=== PATIENT | male | born 1965 | race Caucasian/White ===

== ENCOUNTER → 2017-04-21 | Outpatient (REF) | payer OTHER ==
[~2017-04-21] MED LIST: CETI10TA PO; DULC5TAB PO; LIPI20TA PO; LISI40TAB PO; MELO7.5S PO; PREV30CA11 PO; SING10TA32 PO
== END ==
LOC: M LAB REF 16:33
PROVIDERS: ATTEND Surgery
DX: D23.62 Other benign neoplasm of skin of left upper limb, including shoulder (principal); L91.0 Hypertrophic scar

== ENCOUNTER 2018-02-28 11:59 | Emergency (ER) | payer OTHER ==
[2018-02-28 13:16] LABS: BASO % 0.2 % (0.0-1.0); EOS # 0.1 10^3/uL (0.0-0.50); EOS % 0.7 % (0.0-3.0); HEMATOCRIT 41.5 % (42.0-52.0); IMMATURE GRANULOCYTE % 0.4 % (0-3.0); LYMPH # 3.5 10^3/uL (1.5-4.5); MEAN CORPUSCULAR HGB CONC 33.7 g/dl (32.0-36.5); MONO # 0.7 10^3/uL (0.0-0.8); MONO % 7.2 % (0.0-5.0); NEUTROPHILS # 5.7 10^3/uL (1.8-7.7); NEUTROPHILS % 56.5 % (36.0-66.0); PLATELET COUNT, AUTOMATED 282 10^3/uL (150-450); RED BLOOD COUNT 4.51 10^6/uL (4.30-6.10); RED CELL DISTRIBUTION WIDTH 14.5 % (11.5-14.5); WHITE BLOOD COUNT 10.1 10^3/uL (4.0-10.0)
[2018-02-28 13:42] LABS: ALBUMIN 3.9 GM/DL (3.2-5.2); ALBUMIN/GLOBULIN RATIO 0.98 (1.00-1.93); ALKALINE PHOSPHATASE 96 U/L (45-117); ALT/SGPT 46 U/L (12-78); ANION GAP 2 MEQ/L (8-16); AST/SGOT 19 U/L (7-37); BILIRUBIN,DIRECT 0.2 MG/DL (0.0-0.2); BILIRUBIN,TOTAL 0.7 MG/DL (0.2-1.0); BLOOD UREA NITROGEN 14 MG/DL (7-18); CALCIUM LEVEL 8.5 MG/DL (8.5-10.1); CARBON DIOXIDE LEVEL 31 MEQ/L (21-32); CHLORIDE LEVEL 109 MEQ/L (98-107); CREATININE FOR GFR 0.71 MG/DL (0.70-1.30); GLOMERULAR FILTRATION RATE > 60.0 (>56); GLUCOSE, FASTING 99 MG/DL (70-100); LIPASE 178 U/L (73-393); SODIUM LEVEL 142 MEQ/L (136-145); TOTAL PROTEIN 7.9 GM/DL (6.4-8.2)
[2018-02-28] MEDS ORDERED: ISOVUE-370 76% 100ML VIAL (Q9967) As Ordered (13:48)
== END 2018-02-28 15:18 | disposition home or self-care (01) ==
LOC: M ED 11:59
DX: S39.011A Strain of muscle, fascia and tendon of abdomen, initial encounter (principal); X58.XXXA Exposure to other specified factors, initial encounter; Y92.89 Other specified places as the place of occurrence of the external cause; J30.9 Allergic rhinitis, unspecified; Z79.899 Other long term (current) drug therapy
CPT/HCPCS: Q9967

== ENCOUNTER 2018-03-09 09:21 | Outpatient (RCR) | payer OTHER | END 2018-03-22 | LOC: M PT 09:21 | DX: Z51.89 Encounter for other specified aftercare (principal); M51.06 Intervertebral disc disorders with myelopathy, lumbar region | CPT/HCPCS: 97110 ==

== ENCOUNTER 2018-03-24 11:45 | Outpatient (RCR) | payer OTHER | END 2018-04-22 | LOC: M PT 11:45 | DX: Z51.89 Encounter for other specified aftercare (principal); M54.5 Low back pain; M51.36 Other intervertebral disc degeneration, lumbar region | CPT/HCPCS: 97110 ==

== ENCOUNTER → 2018-07-05 | Outpatient (CLI) | payer OTHER | LOC: M EKG 16:10 | DX: I10 Essential (primary) hypertension (principal) | CPT/HCPCS: 93005 ==

== ENCOUNTER 2018-07-09 11:30 | Day surgery (SDC) | payer OTHER ==
[2018-07-09] MEDS: LR 1,000 ML IV (13:09)
[2018-07-09] MEDS ORDERED: METOCLOPRAMIDE INJ 10MG/2ML VIAL (J2765) As Ordered (13:36)
[2018-07-09] MEDS ORDERED: PROPOFOL 200 MG/20 ML VIAL As Ordered (13:36)
[2018-07-09] MEDS ORDERED: ROCURONIUM BROMIDE 50 MG/5 ML VIAL As Ordered (13:36)
[2018-07-09] MEDS ORDERED: dexameTHASONE 4 MG/ML 1ML VIAL (J1100) As Ordered (13:36)
[2018-07-09] MEDS ORDERED: KETOROLAC 60 MG/2 ML VIAL (J1885) As Ordered (13:36)
[2018-07-09] MEDS ORDERED: NEOSTIGMINE 10 MG/10 ML VIAL (J2710) As Ordered (13:36)
[2018-07-09] MEDS ORDERED: MIDAZOLAM INJ 2 MG/2 ML VIAL (J2250) As Ordered (13:36)
[2018-07-09] MEDS ORDERED: GLYCOPYRROLATE INJ 0.2 MG/ML 2 ML VIAL As Ordered (13:36)
[2018-07-09] MEDS ORDERED: LIDOCAINE 2% INJ 100 MG/5 ML SDV (FOR ANES.) As Ordered (13:36)
[2018-07-09] MEDS ORDERED: ONDANSETRON 4MG/2ML VIAL (J2405) As Ordered (13:36)
[2018-07-09] MEDS ORDERED: fentaNYL 250 MCG/5 ML INJECTION (J3010) As Ordered (13:36)
[2018-07-09] MEDS ORDERED: LABETALOL HCL 100 MG/20 ML VIAL As Ordered (14:46)
[2018-07-09] MEDS: BUPIVACAINE/EPIN 0.25% 30 ML VIAL As Ordered (14:50)
[2018-07-09] MEDS ORDERED: SUGAMMADEX SODIUM 500 MG/5 ML VIAL (BRIDION) As Ordered (14:53)
[2018-07-09] MEDS ORDERED: PERCOCET 5MG/325MG TAB As Ordered (15:11)
[2018-07-09] MEDS ORDERED: fentaNYL 100 MCG/2 ML INJECTION (J3010) As Ordered (15:11)
[2018-07-09] MEDS ORDERED: NORCO, ANEXSIA 5/325MG TABLET (HYDROcodone/ACETAMINOPHEN) PO (15:15)
[2018-07-09] MEDS ORDERED: LR 1,000 ML IV (15:15)
[2018-07-09] MEDS ORDERED: ONDANSETRON 4MG/2ML VIAL (J2405) IV (15:15)
[2018-07-09] MEDS: fentaNYL 100 MCG/2 ML INJECTION (J3010) IV ×4 (15:15→15:31)
[2018-07-09] MEDS ORDERED: METOCLOPRAMIDE INJ 10MG/2ML VIAL (J2765) IV (15:15)
[2018-07-09] MEDS ORDERED: MEPERIDINE INJ 25 MG/ML VIAL (J2175) IV (15:15)
[2018-07-09] MEDS: PERCOCET 5MG/325MG TAB PO (15:15)
== END 2018-07-09 16:38 | disposition home or self-care (01) ==
LOC: M SDC 11:30
DX: K43.6 Other and unspecified ventral hernia with obstruction, without gangrene (principal); K42.0 Umbilical hernia with obstruction, without gangrene; G47.30 Sleep apnea, unspecified; Z79.899 Other long term (current) drug therapy; I10 Essential (primary) hypertension; E78.00 Pure hypercholesterolemia, unspecified; K21.9 Gastro-esophageal reflux disease without esophagitis; Z87.891 Personal history of nicotine dependence
CPT/HCPCS: 49653

== ENCOUNTER → 2019-03-01 | Outpatient (CLI) | payer OTHER ==
[~2019-03-01] MED LIST changes: +FLON1SPR; +ISOVUE-370 76% 100ML VIAL (Q9967) As Ordered ONE; +LISI40TA52 PO; -LISI40TAB PO; +MELO15TA28 PO; +OMEP40CA2 PO; +PREV1CAP PO; -PREV30CA11 PO
--- NOTE | 2019-03-02 04:18 | REP ---
Clinical: Renal cyst. Technique: Axial contrast enhanced images of the abdomen and pelvis using 100 ml Isovue 370 intravenous contrast material with precontrast and delayed images of the abdomen as well as coronal and sagittal re-formations. Comparison: 02/28/2018 Findings: Evaluation of the kidneys demonstrate simple 5.1 cm and 1.0 cm right renal cysts along with few simple subcentimeter bilateral renal cysts. Delayed images demonstrate normal collecting system without hydronephrosis or proximal hydroureter. Bladder is grossly unremarkable. The prostate gland is mildly prominent and measures approximately 5 cm maximal transverse diameter. Liver, spleen, pancreas, gallbladder, and bilateral adrenal glands are normal. The enteric system is without obstruction or acute inflammatory process. Normal terminal ileum and appendix are identified in the right lower quadrant. Few scattered sigmoid diverticula noted without acute diverticulitis. Small fat containing left inguinal hernia noted. No ascites. No free air. No adenopathy. Abdominal aorta without aneurysm or dissection. Musculoskeletal structures are intact. Lung bases are clear. Impression: 1. Right kidney includes 5.1 cm and 1.0 cm simple cysts along with few small bilateral sub centimeter simple renal cysts. No further urinary tract pathology appreciated. 2. Mildly enlarged prostate gland. 3. Fat containing left inguinal hernia. 4. No further acute abdominopelvic pathology appreciated. Electronically Signed by Porter Rey MD 03/02/2019 04:10 A
== END ==
LOC: M RAD 07:54
PROVIDERS: ATTEND Internal Medicine Nephrology
DX: N28.1 Cyst of kidney, acquired (principal)
CPT/HCPCS: 74178; Q9967

== ENCOUNTER → 2019-06-19 | Outpatient (REF) | payer OTHER ==
[~2019-06-19] MED LIST changes: -ISOVUE-370 76% 100ML VIAL (Q9967) As Ordered ONE
== END ==
LOC: M LAB REF 10:05
PROVIDERS: ATTEND Physician Assistant
DX: J02.9 Acute pharyngitis, unspecified (principal)

== ENCOUNTER → 2019-12-31 | Outpatient (REF) | payer OTHER ==
[~2019-12-31] MED LIST changes: -OMEP40CA2 PO; +OMEP40CA97 PO
== END ==
LOC: M LAB REF 17:31
PROVIDERS: ATTEND Physician Assistant
DX: J02.9 Acute pharyngitis, unspecified (principal)

== ENCOUNTER → 2020-01-18 | Outpatient (CLI) | payer OTHER ==
--- NOTE | 2020-01-18 09:36 | REP ---
PA and lateral chest: Comparison is 12/13/2015. The lung thakur are clear. The cardiac size is normal. The evelio, mediastinum, and skeletal structures are unremarkable. Impression: Negative PA and lateral chest. There is no interval change. Electronically Signed by Иван Flores MD 01/18/2020 09:27 A
== END ==
LOC: M WUC 09:06
PROVIDERS: ATTEND Physician Assistant
DX: J20.9 Acute bronchitis, unspecified (principal)

== ENCOUNTER → 2020-07-10 | Outpatient (CLI) | payer OTHER ==
--- NOTE | 2020-08-02 14:46 | PFTRPT ---
Visit Date: 07/10/2020 Second ID: [id number] Referring Doctor: Sujata Valero Height: 70.00 Inches Weight: 255.00 Lbs BSA: 2.31 Diagnosis: R06.02 QUALITY: Study of excellent technical quality. PROCEDURE: Under protocol, methacholine was administered. Even after a maximum dose of 25 mg or 188.875 CDUs, no provocation dose ever achieved. IMPRESSION: Negative methacholine challenge study. MTDD
--- NOTE | 2020-08-03 13:34 | METHCHAL ---
ORDERED BY: Sujata Bateman Study of excellent technical quality. Under protocol, methacholine was administered. Even after a maximum dose of 25 mg or 18.875 CVUs, no provocation was ever achieved. IMPRESSION: Negative methacholine challenge study MTDD
== END ==
LOC: M CARPUL 07:40 → M LAB 07:40
PROVIDERS: ATTEND Nurse Practitioner Adult Health
DX: R06.02 Shortness of breath (principal)

== ENCOUNTER → 2020-12-05 | Outpatient (CLI) | payer OTHER ==
[~2020-12-05] MED LIST changes: +AMLO1TAB25; +ATOR1TAB19; +FAMO1TAB11; +METO1TAB33; +ONDA4TAB6; +TAMS1CAP17; +TRAM50TA2
--- NOTE | 2020-12-05 11:25 | REP ---
INDICATION: HEMATURIA, LLQ TENDERNESS COMPARISON: None. TECHNIQUE: Supine view of the abdomen and pelvis. FINDINGS: Evaluation of the urinary tract system is significantly limited due to overlying bowel gas. Urinary tract calcifications cannot be excluded based on current examination. No evidence for bowel obstruction. Mild fecal stasis suggested. No obvious organomegaly. No foreign body. Skeletal structures demonstrate age-related changes. IMPRESSION: Essentially nondiagnostic for urinary tract calcifications. If the patient remains symptomatic consider follow-up noncontrast CT of the abdomen and pelvis if necessary <Electronically signed by Porter Rey > 12/05/20 1123
== END ==
LOC: M WUC 11:07
PROVIDERS: ATTEND Physician Assistant
DX: R31.9 Hematuria, unspecified (principal); R10.814 Left lower quadrant abdominal tenderness

== ENCOUNTER 2020-12-07 12:21 | Emergency (ER) | payer OTHER ==
[~2020-12-07] VITALS: Ht 177.8 cm; Wt 116.7 kg
[~2020-12-07 12:21] MED LIST changes: -AMLO1TAB25; -ATOR1TAB19; -FAMO1TAB11; -METO1TAB33; -ONDA4TAB6; -TAMS1CAP17; -TRAM50TA2
[2020-12-07] MEDS ORDERED: ATOR1TAB19 (12:32)
[2020-12-07] MEDS ORDERED: METO1TAB33 (12:32)
[2020-12-07] MEDS ORDERED: TAMS1CAP17 (12:32)
[2020-12-07] MEDS ORDERED: AMLO1TAB25 (12:32)
[2020-12-07] MEDS ORDERED: FAMO1TAB11 (12:32)
[2020-12-07] MEDS ORDERED: TRAM50TA2 (12:32)
[2020-12-07] MEDS ORDERED: ONDA4TAB6 (12:32)
[2020-12-07] MEDS ORDERED: NS 500 ML IV ONE (13:00)
[2020-12-07 13:07] LABS: HEMATOCRIT 41.9 % (42.0-52.0); HEMOGLOBIN 13.7 g/dl (13.5-17.5); MEAN CORPUSCULAR HEMOGLOBIN 30.7 pg (27.0-33.0); MEAN CORPUSCULAR HGB CONC 32.7 g/dl (32.0-36.5); MEAN CORPUSCULAR VOLUME 93.9 fl (80.0-96.0); PLATELET COUNT, AUTOMATED 272 10^3/uL (150-450); RED BLOOD COUNT 4.46 10^6/uL (4.30-6.10); WHITE BLOOD COUNT 9.6 10^3/uL (4.0-10.0)
[2020-12-07 13:41] LABS: ALBUMIN 3.9 GM/DL (3.2-5.2); BILIRUBIN,DIRECT 0.2 MG/DL (0.0-0.2); TOTAL PROTEIN 7.4 GM/DL (6.4-8.2)
--- OUTSIDE RECORDS SUMMARY | 2020-12-07 13:57 | CCD | Continuity of Care Document ---
Author Author Alonzo OLGUIN PA Organization Unknown Address [address] [place] [id number] Phone [phone] Care Team Providers Care Header Set Up Operator Name Role Phone Kaci Milan NP AUTM [phone] [facility] [place] [facility] [phone] Problems Active Problems Provider Date Allergic rhinitis CASSIDY Gimenez Onset: 07/15/20 10 Essential hypertension Imelda Hernandez [facility] Onset: 07/15 Hyperlipidemia Imelda Hernandez [facility] Onset: 07/15/20 10 Allergic rhinitis Hector Hagan, P.A. Onset: 2009 Acute suppurative otitis media without spontaneous rup ture of ear drum Hector Hagan, P.A. Onset: 01/26/2011 Social History Type Date Description Comments Sex Unknown Smokeless Tobacco Current Smokeless Tobacco User , Uses 3 Times Daily ETOH Use Rarely consumes alcohol Tobacco Use Start: Unknown End: Unknown Patient is a former smoker quit 13 + yrs ago 1997 Smoking Status Reviewed: 07/23/20 Patient is a former smoker qu it 13 + yrs ago 1997 Allergies, Adverse Reactions, Alerts Active Allergies Reaction Severity Comments Date NKDA 07/28/2009 Seasonal 06/19/2019 Medications Active Medications SIG Qnty Indications Ordering Provide r Date Amoxicillin/Clavulanate Potassium 875-125mg Tablets take one tablet by mouth twice a day x 10 days 20tabs J 01.10 Javier Pratt JR., M.D. 07/23/2020 Cetirizine HCL 10mg Chewtabs qd Unknown Lisinopril 30mg Tablets 1 po qd 90tabs Unknown Singulair 10mg Tablets 1 po q d 30tabs Unknown Lipitor qd Unknown Allergy Shots Unknown Fluticasone Propionate 50mcg/Act Suspension 2 sprays in each nostril once daily Unkno wn Omeprazole qd Unknown Famotidine 20mg Tablets Unknown Metoprolol Succinate ER 100mg Tablets ER 24HR Take One Tablet By Mouth Every Day Unknow n Amlodipine Besylate 5mg Tablets Take One Tablet By Mouth Every Day Unknown Medications Administered in Office Medication SIG Qnty Indications Ordering Provider Date Allergy Injection 2 Or More Injection MEGAN Rock 11/30/2020 Allergy Injection 2 Or More Injection MEGAN Rock 11/19/2020 Allergy Injection 2 Or More Injection MEGAN Rock 11/09/2020 Allergy Injection 2 Or More Injection MEGAN Rock 11/02/2020 Allergy Injection 2 Or More Injection MEGAN Rock 10/26/2020 Allergy Injection 2 Or More Injection MEGAN Tuttle 10/19/2020 Allergy Injection 2 Or More Injection MEGAN Rock 10/12/2020 Allergy Injection 2 Or More Injection MEGAN Rock 10/05/2020 Allergy Injection 2 Or More Injection MEGAN Rock 09/28/2020 Allergy Injection 2 Or More Injection MEGAN Rock 09/21/2020 Allergy Injection 2 Or More Injection MEGAN Rock 08/31/2020 Allergy Injection 2 Or More Injection MEGAN Rock 08/24/2020 Allergy Injection 2 Or More Injection MEGAN Rock 08/17/2020 Allergy Injection 2 Or More Injection MEGAN Rock 08/10/2020 Allergy Injection 2 Or More Injection MEGAN Rock 08/03/2020 Allergy Injection 2 Or More Injection Ayla Sanchez NP 07/29/2020 Allergy Injection 2 Or More Injection Vanessa K. Ring, MEGAN 07/22/2020 Allergy Injection 2 Or More Injection Ayla Sanchez NP 07/15/2020 Allergy Injection 2 Or More Injection Vanessa K. Ring, PA 06/24/2020 Allergy Injection 2 Or More Injection Ayla Sanchez, [employer] DESIGN ENGINEER 06/17/2020 Allergy Injection 2 Or More Injection Vanessa K. Ring, PA 06/10/2020 Allergy Injection 2 Or More Injection Ayla Sanchez, [employer] DES[employer] 06/03/2020 Allergy Injection 2 Or More Injection Vanessa K. Ring, PA 05/27/2020 Allergy Injection 2 Or More Injection Merna Coronado, PA 05/20/2020 Allergy Injection 2 Or More Injection Vanessa K. Ring, PA 05/13/2020 Allergy Injection 2 Or More Injection Ayla Sanchez, [employer] DES[employer] 05/06/2020 Allergy Injection 2 Or More Injection Bienvenido M Mohsen, P.A. 04/29/2020 Allergy Injection 2 Or More Injection Ayla Sanchez, [employer] DESIGN ENGINEER 04/22/2020 Allergy Injection 2 Or More Injection Vanessa K. Ring, PA 04/15/2020 Allergy Injection 2 Or More Injection Ayla Sanchez, [employer] DESIGN ENGINEER 04/08/2020 Allergy Injection 2 Or More Injection Vanessa K. Ring, PA 04/01/2020 Allergy Injection 2 Or More Injection Ayla Sanchez, [employer] DESIGN ENGINEER 03/25/2020 Allergy Injection 2 Or More Injection Bienvenido M Mohsen, P.A. 03/18/2020 Allergy Injection 2 Or More Injection Wilfredo Olguin, PA 03/11/2020 Allergy Injection 2 Or More Injection Bienvenido M Mohsen, P.A. 03/05/2020 Allergy Injection 2 Or More Injection Malik Sharif, PA 02/24/2020 Allergy Injection 2 Or More Injection MalikNafisa Olguin, PA 02/17/2020 Allergy Injection 2 Or More Injection Malik Melye, PA 02/11/2020 Allergy Injection 2 Or More Injection Bienvenido M Mohsen, P.A. 02/05/2020 Allergy Injection 2 Or More Injection Malik Melye, PA 01/29/2020 Allergy Injection 2 Or More Injection Bienvenido M Mohsen, P.A. 01/23/2020 Allergy Injection 2 Or More Injection Bienvenido M Mohsen, P.A. 12/29/2019 Allergy Injection 2 Or More Injection Malik Sharif, PA 12/23/2019 Allergy Injection 2 Or More Injection Wilfredo Olguin, PA 12/16/2019 Allergy Injection 2 Or More Injection Bienvenido M Mohsen, P.A. 12/08/2019 Allergy Injection 2 Or More Injection Malik Lettiere, PA 12/02/2019 Allergy Injection 2 Or More Injection Malik Lettiere, PA 11/25/2019 Allergy Injection 2 Or More Injection Malik Lettiere, PA 11/18/2019 Allergy Injection 2 Or More Injection Malik Lettiere, PA 11/11/2019 Allergy Injection 2 Or More Injection Bienvenido Connolly, P.A. 11/03/2019 Allergy Injection 2 Or More Injection Malik Lettiere, PA 10/28/2019 Allergy Injection 2 Or More Injection Malik Lettiere, PA 10/21/2019 Allergy Injection 2 Or More Injection Malik Lettiere, PA 10/14/2019 Allergy Injection 2 Or More Injection Malik Lettiere, PA 10/09/2019 Allergy Injection 2 Or More Injection Malik Lettiere, PA 09/30/2019 Allergy Injection 2 Or More Injection Malik Lettiere, PA 09/02/2019 Allergy Injection 2 Or More Injection Bienvenido Connolly, P.A. 08/07/2019 Allergy Injection 2 Or More Injection Bienvenido Connolly, P.A. 07/18/2019 Allergy Injection 2 Or More Injection Ayla Sanchez, [employer] DES[employer] 06/27/2019 Allergy Injection 2 Or More Injection Vanessa Ana Cristina Conrad, PA 06/06/2019 Allergy Injection 2 Or More Injection Vanessa Ana Cristina Ring, PA 05/16/2019 Allergy Injection 2 Or More Injection Saranya Riley, PA 04/25/2019 Allergy Injection 2 Or More Injection Vanessa Ana Cristina Conrad, PA 04/04/2019 Allergy Injection 2 Or More Injection Saranya Riley, PA 03/14/2019 Allergy Injection 2 Or More Injection Saranya Riley, PA 02/21/2019 Allergy Injection 2 Or More Injection Malik Lettiere, PA 01/30/2019 Allergy Injection 2 Or More Injection Bienvenido Connolly, P.A. 01/12/2019 Allergy Injection 2 Or More Injection Mlaik Lettiere, PA 12/19/2018 Allergy Injection 2 Or More Injection Vanessa Ana Cristina Conrad, PA 11/29/2018 Allergy Injection 2 Or More Injection Malik Senhaiere, PA 11/09/2018 Allergy Injection 2 Or More Injection Saranya Riley, PA 10/19/2018 Allergy Injection 2 Or More Injection Malik Melye, PA 09/29/2018 Allergy Injection 2 Or More Injection Bienvenido Connolly, P.A. 09/08/2018 Allergy Injection 2 Or More Injection Malik Snehaiere, PA 08/17/2018 Allergy Injection 2 Or More Injection Vanessa K. Ring, PA 07/27/2018 Allergy Injection 2 Or More Injection Malik Melye, PA 07/07/2018 Allergy Injection 2 Or More Injection Saranya Riley, PA 06/14/2018 Allergy Injection 2 Or More Injection Vanessa K. Ring, PA 05/24/2018 Allergy Injection 2 Or More Injection Vanessa K. Ring, PA 05/03/2018 Allergy Injection 2 Or More Injection Vanessa K. Ring, PA 04/12/2018 Allergy Injection 2 Or More Injection Porter Martha, P.A. 03/22/2018 Allergy Injection 2 Or More Injection [facility] 03/01/2018 Allergy Injection 2 Or More Injection Vanessa K. Ring, PA 02/08/2018 Allergy Injection 2 Or More Injection [facility] 01/18/2018 Allergy Injection 2 Or More Injection Malik Lettiere, PA 12/22/2017 Allergy Injection 2 Or More Injection Malik Lettiere, PA 12/01/2017 Allergy Injection 2 Or More Injection Bienvenido Connolly, P.A. 11/04/2017 Allergy Injection 2 Or More Injection Malik Lettiere, PA 10/13/2017 Allergy Injection 2 Or More Injection Malik Lettiere, PA 09/22/2017 Allergy Injection 2 Or More Injection Malik Lettiere, PA 09/01/2017 Allergy Injection 2 Or More Injection Vanessa K. Ring, PA 08/10/2017 Allergy Injection 2 Or More Injection Bienvneido Connolly, P.A. 07/15/2017 Allergy Injection 2 Or More Injection Vanessa K. Ring, PA 06/22/2017 Allergy Injection 2 Or More Injection Vanessa K. Ring, PA 06/01/2017 Allergy Injection 2 Or More Injection Hector Hagan, P.A. 01/23/2013 Allergy Injection 2 Or More Injection Porter Thomas, P.A. 01/03/2013 Allergy Injection 2 Or More Injection Porter Thomas, P.A. 12/13/2012 Allergy Injection 2 Or More Injection Porter Thomas, P.A. 11/22/2012 Allergy Injection 2 Or More Injection Porter Thomas, P.A. 11/01/2012 Allergy Injection 2 Or More Injection Porter Thomas, P.A. 10/11/2012 Allergy Injection 2 Or More Injection Hector Hagan, P.A. 09/21/2012 Allergy Injection 2 Or More Injection Porter Thomas, P.A. 09/01/2012 Allergy Injection 2 Or More Injection Imelda Hernandez, [facility] 08/09/2012 Allergy Injection 2 Or More Injection Porter Thomas, P.A. 07/22/2012 Allergy Injection 2 Or More Injection Porter Thomas, P.A. 06/28/2012 Allergy Injection 2 Or More Injection Porter Thomas, P.A. 06/07/2012 Allergy Injection 2 Or More Injection Porter Thomas, P.A. 05/17/2012 Allergy Injection 2 Or More Injection Porter Thomas, P.A. 04/26/2012 Allergy Injection 2 Or More Injection Porter Thomas, P.A. 04/05/2012 Allergy Injection 2 Or More Injection Porter Thomas, P.A. 03/15/2012 Allergy Injection 2 Or More Injection Porter Thomas, P.A. 02/22/2012 Allergy Injection 2 Or More Injection Bienvenido Connolly, P.A. 02/01/2012 Allergy Injection 2 Or More Injection Porter Thomas, P.A. 01/12/2012 Allergy Injection 2 Or More Injection Hector Hagan, P.A. 12/31/2011 Allergy Injection 2 Or More Injection Hector Hagan, P.A. 12/16/2011 Allergy Injection 2 Or More Injection Porter Thomas, P.A. 12/01/2011 Allergy Injection 2 Or More Injection Porter Thomas, P.A. 11/17/2011 Allergy Injection 2 Or More Injection Porter Thomas, P.A. 11/03/2011 Allergy Injection 2 Or More Injection Porter Thomas, P.A. 10/20/2011 Allergy Injection 2 Or More Injection Porter Thomas, P.A. 10/06/2011 Allergy Injection 2 Or More Injection Hector Hagan, P.A. 09/24/2011 Allergy Injection 2 Or More Injection Hector Hagan, P.A. 09/10/2011 Allergy Injection 2 Or More Injection Porter Thomas, P.A. 08/25/2011 Allergy Injection 2 Or More Injection Porter Thomas, P.A. 08/11/2011 Allergy Injection 2 Or More Injection Porter Thomas, P.A. 07/28/2011 Allergy Injection 2 Or More Injection Porter Thomas, P.A. 07/14/2011 Allergy Injection 2 Or More Injection Porter Thomas, P.A. 06/30/2011 Allergy Injection 2 Or More Injection Porter Thomas, P.A. 06/16/2011 Allergy Injection 2 Or More Injection Porter Thomas, P.A. 06/02/2011 Allergy Injection 2 Or More Injection Imelda Hernandez, [facility] 05/18/2011 Allergy Injection 2 Or More Injection Porter Thomas, P.A. 05/05/2011 Allergy Injection 2 Or More Injection Porter Thomas, P.A. 04/22/2011 Allergy Injection 2 Or More Injection Porter Thomas, P.A. 04/07/2011 Allergy Injection 2 Or More Injection Porter Thomas, P.A. 03/24/2011 Allergy Injection 2 Or More Injection Hector Hagan, P.A. 03/10/2011 Allergy Injection 2 Or More Injection Porter Thomas, P.A. 02/24/2011 Allergy Injection 2 Or More Injection Hector Hagan, P.A. 02/11/2011 Allergy Injection 2 Or More Injection Hector Hagan, P.A. 01/26/2011 Allergy Injection 2 Or More Injection Hector Hagan, P.A. 01/14/2011 Allergy Injection 2 Or More Injection Porter Thomas, P.A. 12/30/2010 Allergy Injection 2 Or More Injection Porter Thomas, P.A. 12/16/2010 Allergy Injection 2 Or More Injection Porter Thomas, P.A. 12/02/2010 Allergy Injection 2 Or More Injection Porter Thomas, P.A. 11/18/2010 Allergy Injection 2 Or More Injection Porter Thomas, P.A. 11/04/2010 Allergy Injection 2 Or More Injection Porter Thomas, P.A. 10/21/2010 Allergy Injection 2 Or More Injection Porter Thomas, P.A. 10/07/2010 Allergy Injection 2 Or More Injection Porter Thomas, P.A. 09/23/2010 Allergy Injection 2 Or More Injection Porter Thomas, P.A. 09/09/2010 Allergy Injection 2 Or More Injection Porter Thomas, P.A. 08/26/2010 Allergy Injection 2 Or More Injection Porter Thomas, P.A. 08/12/2010 Allergy Injection 2 Or More Injection Imelda Hernandez, [facility] 07/29/2010 Allergy Injection 2 Or More Injection Porter Thomas, P.A. 07/15/2010 Allergy Injection 2 Or More Injection Porter Thomas, P.A. 07/01/2010 Allergy Injection 2 Or More Injection Hector Hagan, P.A. 06/25/2010 Allergy Injection 2 Or More Injection Hector Hagan, P.A. 06/18/2010 Allergy Injection 2 Or More Injection Hector Hagan, P.A. 06/11/2010 Allergy Injection 2 Or More Injection Hector Hagan, P.A. 06/04/2010 Allergy Injection 2 Or More Injection Hector Hagan, P.A. 05/28/2010 Allergy Injection 2 Or More Injection Hector Hagan, P.A. 05/21/2010 Allergy Injection 2 Or More Injection Hector Hagan, P.A. 05/14/2010 Allergy Injection 2 Or More Injection Hector Hagan, P.A. 05/07/2010 Allergy Injection 2 Or More Injection Hector Hagan, P.A. 04/30/2010 Allergy Injection 2 Or More Injection Hector Hagan, P.A. 04/23/2010 Allergy Injection 2 Or More Injection Hector Hagan, P.A. 04/16/2010 Allergy Injection 2 Or More Injection Hector Hagan, P.A. 04/09/2010 Allergy Injection 2 Or More Injection Hector Hagan, P.A. 04/02/2010 Allergy Injection 2 Or More Injection Hector Hagan, P.A. 03/26/2010 Allergy Injection 2 Or More Injection Hector Hagan, P.A. 03/19/2010 Allergy Injection 2 Or More Injection Hector Hagan, P.A. 03/12/2010 Allergy Injection 2 Or More Injection Hector Hagan, P.A. 03/05/2010 Allergy Injection 2 Or More Injection Hector Hagan, P.A. 02/26/2010 Immunizations Description No Information Available Vital Signs Date Vital Result Comment 07/23/2020 8:52am BP Systolic 141 mmHg BP Diastolic 91 mmHg Heart Rate 61 /min Respiratory Rate 16 /min O2 % BldC Oximetry 98 % Body Temperature 99.4 F Weight 255.00 lb Height 70 inches 5'10" BMI (Body Mass Index) 36.6 kg/m2 Pain Level 0 06/14/2020 4:06pm BP Systolic 155 mmHg BP Diastolic 90 mmHg Heart Rate 71 /min Respiratory Rate 20 /min O2 % BldC Oximetry 98 % Body Temperature 98.8 F Weight 245.00 lb Height 70 inches 5'10" BMI (Body Mass Index) 35.1 kg/m2 Pain Level 8 Results Description No Information Available Procedures Date Code Description Status 11/30/2020 10653 Allergy Injection 2 Or More Comp leted 11/19/2020 20218 Allergy Injection 2 Or More Comp leted 11/09/2020 36654 Allergy Injection 2 Or More Comp leted 11/02/2020 05191 Allergy Injection 2 Or More Comp leted 10/26/2020 63957 Allergy Injection 2 Or More Comp leted 10/19/2020 09033 Allergy Injection 2 Or More Comp leted 10/12/2020 49383 Allergy Injection 2 Or More Comp leted 10/05/2020 08294 Allergy Injection 2 Or More Comp leted 09/28/2020 84898 Allergy Injection 2 Or More Comp leted 09/21/2020 80472 Allergy Injection 2 Or More Comp leted 08/31/2020 03589 Allergy Injection 2 Or More Comp leted 08/24/2020 52160 Allergy Injection 2 Or More Comp leted 08/17/2020 50197 Allergy Injection 2 Or More Comp leted 08/10/2020 78747 Allergy Injection 2 Or More Comp leted 08/03/2020 98446 Allergy Injection 2 Or More Comp leted 07/29/2020 02652 Allergy Injection 2 Or More Comp leted 07/22/2020 03352 Allergy Injection 2 Or More Comp leted 07/15/2020 59970 Allergy Injection 2 Or More Comp leted 06/24/2020 58050 Allergy Injection 2 Or More Comp leted 06/17/2020 25011 Allergy Injection 2 Or More Comp leted 06/10/2020 85190 Allergy Injection 2 Or More Comp leted 06/03/2020 47059 Allergy Injection 2 Or More Comp leted Medical Devices Description No Information Available Encounters Type Date Location Provider Dx Diagnosis Office Visit 07/23/2020 8:25a Main Office MEGAN Rock J01 .10 Acute frontal sinusitis, unspecified R05 Cough Office Visit 06/14/2020 3:50p Main Office Kaylee Max R1 0.30 Lower abdominal pain, unspecified Assessments Date Code Description Provider 11/30/2020 J30.89 Other allergic rhinitis Wilfredo Olguin, PA 11/19/2020 J30.89 Other allergic rhinitis Wilfredo Olguin, PA 11/09/2020 J30.89 Other allergic rhinitis Wilfredo Olguin, PA 11/02/2020 J30.89 Other allergic rhinitis Wilfredo Olguin, PA 10/26/2020 J30.89 Other allergic rhinitis Wilfredo Olguin, PA 10/19/2020 J30.89 Other allergic rhinitis Lissette Coronado, PA 10/12/2020 J30.89 Other allergic rhinitis Wilfredo Olguin, PA 10/05/2020 J30.89 Other allergic rhinitis Wilfredo Olguin, PA 09/28/2020 Z20.828 Contact with and (fox spected) exposure to other viral communicable diseases Wilfredo Olguin, PA 09/21/2020 J30.89 Other allergic rhinitis Wilfredo Olguin, PA 08/31/2020 J30.89 Other allergic rhinitis Wilfredo Olguin, PA 08/31/2020 Z20.828 Contact with and (fox spected) exposure to other viral communicable diseases Wilfredo Olguin, PA 08/24/2020 J30.89 Other allergic rhinitis Wilfredo Olguin, PA 08/17/2020 J30.9 Allergic rhinitis, unspecified M catrina Olguin, PA 08/10/2020 J30.89 Other allergic rhinitis Wilfredo Olguin, PA 08/03/2020 J30.89 Other allergic rhinitis Wilfredo Olguin, PA 07/29/2020 J30.89 Other allergic rhinitis Ayla V illanueva, [employer] DES[employer] 07/23/2020 J01.10 Acute frontal sinusitis, unspeci fied Wilfredo Olguin, PA 07/23/2020 R05 Cough Wilfredo ely, PA 07/22/2020 J30.89 Other allergic rhinitis Vanessa Conrad, PA 07/15/2020 J30.89 Other allergic rhinitis Ayla V illanueva, [employer] DES[employer] ENG[employer]ER 06/24/2020 J30.89 Other allergic rhinitis Vanessa Conrad, PA 06/17/2020 J30.89 Other allergic rhinitis Ayla V illanueva, AHMET 06/14/2020 R10.30 Lower abdominal pain, unspecifie d Bienvenido Connolly, P.A. 06/10/2020 J30.89 Other allergic rhinitis MEGAN Farris 06/03/2020 J30.89 Other allergic rhinitis Ayla arellano, AHMET Plan of Treatment No Information Available Functional Status Description No Information Available Mental Status Description No Information Available Referrals Description No Information Available
--- OUTSIDE RECORDS SUMMARY | 2020-12-07 13:57 | CCD | Continuity of Care Document ---
Author Author Alonzo OLGUIN PA Organization Unknown Address [address] [place] [id number] Phone [phone] Care Team Providers Care Catalogue Librarian Name Role Phone Kaci Milan NP AUTM [phone] [facility] AUTM [place] AUTM [phone] Problems Active Problems Provider Date Allergic rhinitis CASSIDY Gimenez Onset: 07/15/20 10 Essential hypertension Imelda Hernandez [facility] Onset: 07/15 Hyperlipidemia Imelda Hernandez [facility] Onset: 07/15/20 10 Allergic rhinitis Hector Hagan, [...] Injection 2 Or More Injection Ayla Sanchez, DIE ENGRAVING SUPERVISOR 06/17/2020 Allergy Injection 2 Or More Injection Vanessa K. Ring, PA 06/10/2020 Allergy Injection 2 Or More Injection Ayla Sanchez, DIE ENGRAVING SUPERVISOR 06/03/2020 Allergy Injection 2 Or More Injection Vanessa K. Ring, PA 05/27/2020 Allergy Injection 2 Or More Injection Merna Coronado, PA 05/20/2020 Allergy Injection 2 Or More Injection Vanessa K. Ring, PA 05/13/2020 Allergy Injection 2 Or More Injection Ayla Sanchez, DIE ENGRAVING SUPERVISOR 05/06/2020 Allergy Injection 2 Or More Injection Bienvenido M Mohsen, P.A. 04/29/2020 Allergy Injection 2 Or More Injection Ayla Sanchez, DIE ENGRAVING SUPERVISOR 04/22/2020 Allergy Injection 2 Or More Injection Vanessa K. Ring, PA 04/15/2020 Allergy Injection 2 Or More Injection Ayla Sanchez, DIE ENGRAVING SUPERVISOR 04/08/2020 Allergy Injection 2 Or More Injection Vanessa K. Ring, PA 04/01/2020 Allergy Injection 2 Or More Injection Ayla Sanchez, DIE ENGRAVING SUPERVISOR 03/25/2020 Allergy Injection 2 Or More Injection [...] Injection 2 Or More Injection Ayla Sanchez, DIE ENGRAVING SUPERVISOR 06/27/2019 Allergy Injection 2 Or More Injection [...] 01/12/2019 Allergy Injection 2 Or More Injection Malik Lettiere, PA 12/19/2018 Allergy Injection 2 Or More Injection Vanessa Ana Cristina Conrad, PA 11/29/2018 Allergy Injection 2 Or More Injection Malik Snehaiere, PA 11/09/2018 Allergy Injection 2 Or More [...] 03/22/2018 Allergy Injection 2 Or More Injection [facility] 03/01/2018 Allergy Injection 2 Or More Injection Vanessa K. Ring, PA 02/08/2018 Allergy Injection 2 Or More Injection [facility] 01/18/2018 Allergy Injection 2 Or [...] 08/10/2017 Allergy Injection 2 Or More Injection Bienvenido Connolly, P.A. 07/15/2017 Allergy Injection 2 Or [...] Injection 2 Or More Injection Imelda Hernandez, [facility] 08/09/2012 Allergy Injection 2 Or More Injection [...] Injection 2 Or More Injection Imelda Hernandez, [facility] 05/18/2011 Allergy Injection 2 Or More Injection [...] Injection 2 Or More Injection Imelda Hernandez, [facility] 07/29/2010 Allergy Injection 2 Or More Injection [...] Available Procedures Date Code Description Status 11/30/2020 28138 Allergy Injection 2 Or More Comp leted 11/19/2020 96685 Allergy Injection 2 Or More Comp leted 11/09/2020 95517 Allergy Injection 2 Or More Comp leted 11/02/2020 75380 Allergy Injection 2 Or More Comp leted 10/26/2020 99128 Allergy Injection 2 Or More Comp leted 10/19/2020 26949 Allergy Injection 2 Or More Comp leted 10/12/2020 42526 Allergy Injection 2 Or More Comp leted 10/05/2020 74364 Allergy Injection 2 Or More Comp leted 09/28/2020 69591 Allergy Injection 2 Or More Comp leted 09/21/2020 86109 Allergy Injection 2 Or More Comp leted 08/31/2020 79769 Allergy Injection 2 Or More Comp leted 08/24/2020 80317 Allergy Injection 2 Or More Comp leted 08/17/2020 11534 Allergy Injection 2 Or More Comp leted 08/10/2020 68299 Allergy Injection 2 Or More Comp leted 08/03/2020 25730 Allergy Injection 2 Or More Comp leted 07/29/2020 12910 Allergy Injection 2 Or More Comp leted 07/22/2020 20693 Allergy Injection 2 Or More Comp leted 07/15/2020 99895 Allergy Injection 2 Or More Comp leted 06/24/2020 73712 Allergy Injection 2 Or More Comp leted 06/17/2020 86159 Allergy Injection 2 Or More Comp leted 06/10/2020 13671 Allergy Injection 2 Or More Comp leted 06/03/2020 19541 Allergy Injection 2 Or More Comp leted Medical Devices Description No Information Available Encounters Type Date Location Provider Dx Diagnosis Office Visit 07/23/2020 8:25a Main Office MEGAN Rock J01 .10 Acute frontal sinusitis, unspecified R05 Cough Office Visit 06/14/2020 3:50p Main Office Kaylee Max R1 0.30 Lower abdominal pain, unspecified Assessments Date Code Description Provider 11/19/2020 J30.89 Other allergic rhinitis Wilfredo Olguin, [...] PA 07/29/2020 J30.89 Other allergic rhinitis Ayla Tejeda illanuealex, DIE ENGRAVING SUPERVISOR 07/23/2020 J01.10 Acute frontal sinusitis, unspeci fied Wilfredo Olguin, PA 07/23/2020 R05 Cough Wilfredo ely, PA 07/22/2020 J30.89 Other allergic rhinitis Vanessa Conrad, PA 07/15/2020 J30.89 Other allergic rhinitis Ayla V illanueva, DIE ENGRAVING SUPERVISOR 06/24/2020 J30.89 Other allergic rhinitis Vanessa Conrad, PA 06/17/2020 J30.89 Other allergic rhinitis Ayla V illanueva, DIE ENGRAVING SUPERVISOR 06/14/2020 R10.30 Lower abdominal pain, unspecifie d Bienvenido Connolly, P.A. 06/10/2020 J30.89 Other allergic rhinitis MEGAN Farris 06/03/2020 J30.89 Other allergic rhinitis Ayla arellano, AHMET Plan of Treatment No Information Available Functional Status Description No Information Available Mental Status Description No Information Available Referrals Description No Information Available
--- OUTSIDE RECORDS SUMMARY | 2020-12-07 13:58 | CCD | Continuity of Care Document ---
Author Author Alonzo OLGUIN PA Organization Unknown Address [address] [place] [id number] Phone [phone] Care Team Providers Care Cooking Teacher Name Role Phone Kaci Milan NP AUTM [phone] [facility] AUTM [place] AUTM [phone] Problems Active Problems Provider Date Allergic rhinitis CASSIDY Gimenez Onset: 07/15/20 10 Essential hypertension Imelda Hernandez [facility] Onset: 07/15 Hyperlipidemia Imelda Hernandez [facility] Onset: 07/15/20 10 Allergic rhinitis [...] Injection 2 Or More Injection Vanessa K. [place], MEGAN 07/22/2020 Allergy Injection 2 Or More Injection Ayla Sanchez NP 07/15/2020 Allergy Injection 2 Or More Injection Vanessa K. [place], PA 06/24/2020 Allergy Injection 2 Or More Injection Ayla Sanchez NP 06/17/2020 Allergy Injection 2 Or More Injection Vanessa K. Ring, PA 06/10/2020 Allergy Injection 2 Or More Injection Ayla Sanchez NP 06/03/2020 Allergy Injection 2 Or More Injection Vanessa K. Ring, PA 05/27/2020 Allergy Injection 2 Or More Injection Merna Coronado, PA 05/20/2020 Allergy Injection 2 Or More Injection Vanessa K. Ring, PA 05/13/2020 Allergy Injection 2 Or More Injection Ayla Sanchez, INSULATION BOARD CALENDER OPERATOR 05/06/2020 Allergy Injection 2 Or More Injection Bienvenido M Mohsen, P.A. 04/29/2020 Allergy Injection 2 Or More Injection Ayla Sanchez, INSULATION BOARD CALENDER OPERATOR 04/22/2020 Allergy Injection 2 Or More Injection Vanessa K. Ring, PA 04/15/2020 Allergy Injection 2 Or More Injection Ayla Sanchez, INSULATION BOARD CALENDER OPERATOR 04/08/2020 Allergy Injection 2 Or More Injection Vanessa K. Ring, PA 04/01/2020 Allergy Injection 2 Or More Injection Ayla Sanchez, INSULATION BOARD CALENDER OPERATOR 03/25/2020 Allergy Injection 2 Or More Injection Bienvenido M Mohsen, P.A. 03/18/2020 Allergy Injection 2 Or More Injection Wilfredo Olguin, PA 03/11/2020 Allergy Injection 2 Or More Injection Bienvenido M Mohsen, P.A. 03/05/2020 Allergy Injection 2 Or More Injection Malik Melye, PA 02/24/2020 Allergy Injection 2 Or More Injection Malik Melye, PA 02/17/2020 Allergy Injection 2 Or More Injection Malik Lettiere, PA 02/11/2020 Allergy Injection 2 Or More Injection Bienvenido M Mohsen, P.A. 02/05/2020 Allergy Injection 2 Or More Injection Malik Melye, PA 01/29/2020 Allergy Injection 2 Or More Injection Bienvenido M Mohsen, P.A. 01/23/2020 Allergy Injection 2 Or More Injection Bienvenido M Mohsen, P.A. 12/29/2019 Allergy Injection 2 Or More Injection Malik Melye, PA 12/23/2019 Allergy Injection 2 Or More Injection Malik Snehaiere, PA 12/16/2019 Allergy Injection 2 Or More Injection Bienvenido M Mohsen, P.A. 12/08/2019 Allergy Injection 2 Or More Injection Malik Snehaiere, PA 12/02/2019 Allergy Injection 2 Or More Injection Malik Melye, PA 11/25/2019 Allergy Injection 2 Or More Injection Malik Lettiere, PA 11/18/2019 Allergy Injection 2 Or More Injection Malik Snehaiere, PA 11/11/2019 Allergy Injection 2 Or More Injection Bienvenido Connolly, P.A. 11/03/2019 Allergy Injection 2 Or More Injection Malik Snehaiere, PA 10/28/2019 Allergy Injection 2 Or More Injection Malik Lettiere, PA 10/21/2019 Allergy Injection 2 Or More Injection Malik Snehaiere, PA 10/14/2019 Allergy Injection 2 Or More Injection Malik Snehaiere, PA 10/09/2019 Allergy Injection 2 Or More Injection Malik Lettiere, PA 09/30/2019 Allergy Injection 2 Or More Injection Malik Snehaiere, PA 09/02/2019 Allergy Injection 2 Or More Injection Bienvenido Connolly, P.A. 08/07/2019 Allergy Injection 2 Or More Injection Bienvenido Connolly, P.A. 07/18/2019 Allergy Injection 2 Or More Injection Ayla Sanchez, INSULATION BOARD CALENDER OPERATOR 06/27/2019 Allergy Injection 2 Or More Injection Vanessajeff Conrad, PA 06/06/2019 Allergy Injection 2 Or More Injection Vanessa Ana Cristina Ring, PA 05/16/2019 Allergy Injection 2 Or More Injection Saranya Riley, PA 04/25/2019 Allergy Injection 2 Or More Injection Vanessa Ana Cristina Ring, PA 04/04/2019 Allergy Injection 2 Or More Injection Saranya Riley, PA 03/14/2019 Allergy Injection 2 Or More Injection Saranya Riley, PA 02/21/2019 Allergy Injection 2 Or More Injection Malik Melye, PA 01/30/2019 Allergy Injection 2 Or More Injection Bienvenido Connolly, P.A. 01/12/2019 Allergy Injection 2 Or More Injection Malik Lettiere, PA 12/19/2018 Allergy Injection 2 Or More Injection Vanessa Ana Cristina Ring, PA 11/29/2018 Allergy Injection 2 Or More Injection Malik Snehaiere, PA 11/09/2018 Allergy Injection 2 Or More Injection Saranya Riley, PA 10/19/2018 Allergy Injection 2 Or More Injection Malik Lettiere, PA 09/29/2018 Allergy Injection 2 Or More Injection Bienvenido Connolly, P.A. 09/08/2018 Allergy Injection 2 Or More Injection Malik Melye, PA 08/17/2018 Allergy Injection 2 Or More [...] 2 Or More Injection Porter Thomas, P.A. 03/22/2018 Allergy Injection 2 Or More Injection [facility] 03/01/2018 Allergy Injection 2 Or More Injection Vanessa K. Ring, PA 02/08/2018 Allergy Injection 2 Or More Injection [facility] 01/18/2018 Allergy Injection 2 Or More Injection Malik Lettiere, PA 12/22/2017 Allergy Injection 2 Or More Injection Malik Snehaiere, PA 12/01/2017 Allergy Injection 2 Or More [...] 2 Or More Injection Porter Martha, P.A. 11/01/2012 Allergy Injection 2 Or More Injection Porter Martha, P.A. 10/11/2012 Allergy Injection 2 Or More Injection Hector Hagan, P.A. 09/21/2012 Allergy Injection 2 Or More Injection Porter Thomas, P.A. 09/01/2012 Allergy Injection 2 Or More Injection Imelda Hernandez, [facility] 08/09/2012 Allergy Injection 2 Or [...] Injection 2 Or More Injection Imelda Hernandez, [facility] 05/18/2011 Allergy Injection 2 Or [...] Injection 2 Or More Injection Imelda Hernandez, [facility] 07/29/2010 Allergy Injection 2 Or [...] Information Available Procedures Date Code Description Status 11/02/2020 74090 Allergy Injection 2 Or More Comp leted 10/26/2020 98851 Allergy Injection 2 Or More Comp leted 10/19/2020 15848 Allergy Injection 2 Or More Comp leted 10/12/2020 96909 Allergy Injection 2 Or More Comp leted 10/05/2020 41636 Allergy Injection 2 Or More Comp leted 09/28/2020 37530 Allergy Injection 2 Or More Comp leted 09/21/2020 93556 Allergy Injection 2 Or More Comp leted 08/31/2020 11051 Allergy Injection 2 Or More Comp leted 08/24/2020 86780 Allergy Injection 2 Or More Comp leted 08/17/2020 04306 Allergy Injection 2 Or More Comp leted 08/10/2020 74509 Allergy Injection 2 Or More Comp leted 08/03/2020 49859 Allergy Injection 2 Or More Comp leted 07/29/2020 52122 Allergy Injection 2 Or More Comp leted 07/22/2020 27440 Allergy Injection 2 Or More Comp leted 07/15/2020 85756 Allergy Injection 2 Or More Comp leted 06/24/2020 43821 Allergy Injection 2 Or More Comp leted 06/17/2020 14901 Allergy Injection 2 Or More Comp leted 06/10/2020 32916 Allergy Injection 2 Or More Comp leted 06/03/2020 12341 Allergy Injection 2 Or More Comp leted 05/27/2020 55440 Allergy Injection 2 Or More Comp leted 05/20/2020 73581 Allergy Injection 2 Or More Comp leted 05/13/2020 84992 Allergy Injection 2 Or More Comp leted 05/06/2020 56957 Allergy Injection 2 Or More Comp leted Medical Devices Description No Information Available Encounters Type Date Location Provider Dx Diagnosis Office Visit 07/23/2020 8:25a Main Office MEGAN Rock J01 .10 Acute frontal sinusitis, unspecified R05 Cough Office Visit 06/14/2020 3:50p Main Office Kaylee Max R1 0.30 Lower abdominal pain, unspecified Assessments Date Code Description Provider 11/02/2020 J30.89 Other allergic rhinitis Wilfredo Skelton Sharif, PA 10/26/2020 J30.89 Other allergic rhinitis Malik Sharif, PA 10/19/2020 J30.89 Other allergic rhinitis Lissette Coronado, PA 10/12/2020 J30.89 Other allergic rhinitis Malik Sharif, PA 10/05/2020 J30.89 Other allergic rhinitis Malik Sharif, PA 09/28/2020 Z20.828 Contact with and (fox spected) exposure to other viral communicable diseases Wilfredo Olguin, PA 09/21/2020 J30.89 Other allergic rhinitis Malik Sharif, PA 08/31/2020 J30.89 Other allergic rhinitis Malik Sharif, PA 08/31/2020 Z20.828 Contact with and (fox spected) exposure to other viral communicable diseases Malik Sharif, PA 08/24/2020 J30.89 Other allergic rhinitis Malik Sharif, PA 08/17/2020 J30.9 Allergic rhinitis, unspecified M catrina Olguin, PA 08/10/2020 J30.89 Other allergic rhinitis Malik Sharif, PA 08/03/2020 J30.89 Other allergic rhinitis Malik Sharif, PA 07/29/2020 J30.89 Other allergic rhinitis Ayla V illanuealex, INSULATION BOARD CALENDER OPERATOR 07/23/2020 J01.10 Acute frontal sinusitis, unspeci fied Wilfredo Olguin, PA 07/23/2020 R05 Cough Wilfredo ely, PA 07/22/2020 J30.89 Other allergic rhinitis Vanessabret Conrad, PA 07/15/2020 J30.89 Other allergic rhinitis Ayla V illanueva, INSULATION BOARD CALENDER OPERATOR 06/24/2020 J30.89 Other allergic rhinitis Vanessajeff Conrad, PA 06/17/2020 J30.89 Other allergic rhinitis Ayla V illanueva, INSULATION BOARD CALENDER OPERATOR 06/14/2020 R10.30 Lower abdominal pain, unspecifie d Bienvenido Connolly, P.A. 06/10/2020 J30.89 Other allergic rhinitis Vanessabret Conrad, PA 06/03/2020 J30.89 Other allergic rhinitis Ayla V illanueva, INSULATION BOARD CALENDER OPERATOR 05/27/2020 J30.89 Other allergic rhinitis Vanessabret Conrad, PA 05/20/2020 J30.89 Other allergic rhinitis MEGAN Pickering 05/13/2020 J30.89 Other allergic rhinitis MEGAN Farris 05/06/2020 J30.89 Other allergic rhinitis Ayla arellano, AHMET Plan of Treatment No Information Available Functional Status Description No Information Available Mental Status Description No Information Available Referrals Description No Information Available
--- OUTSIDE RECORDS SUMMARY | 2020-12-07 13:58 | CCD | Continuity of Care Document ---
Author Author Alonzo OLGUIN PA Organization Unknown Address [address] [place] [address] Phone [phone] Care Team Providers Care Wet Roaster Name Role Phone Kaci Milan NP AUTM [phone] [facility] AUTM [phone] AUTM [phone] Problems Active Problems Provider Date Allergic rhinitis CASSIDY Gimenez Onset: 07/15/20 10 Essential hypertension Imelda Hernandez [facility] Onset: 07/15 Hyperlipidemia Imelda Hernandez [facility] Onset: 07/15/20 10 Allergic rhinitis Hector [...] Injection 2 Or More Injection Vanessa K. MEGAN Conrad 07/22/2020 Allergy Injection 2 Or More Injection Ayla Sanchez NP 07/15/2020 Allergy Injection 2 Or More Injection Vanessa K. Houston, MEGAN 06/24/2020 Allergy Injection 2 Or More Injection Ayla Sanchez NP 06/17/2020 Allergy Injection 2 Or More Injection Vanessa K. MEGAN Conrad 06/10/2020 Allergy Injection 2 Or More Injection Ayla Sanchez, CALL CENTER DISPATCHER 06/03/2020 Allergy Injection 2 Or More Injection Vanessa K. Ring, PA 05/27/2020 Allergy Injection 2 Or More Injection Merna Coronado, PA 05/20/2020 Allergy Injection 2 Or More Injection Vanessa K. Ring, PA 05/13/2020 Allergy Injection 2 Or More Injection Ayla Sanchez, CALL CENTER DISPATCHER 05/06/2020 Allergy Injection 2 Or More Injection Bienvenido M Mohsen, P.A. 04/29/2020 Allergy Injection 2 Or More Injection Ayla Sanchez, CALL CENTER DISPATCHER 04/22/2020 Allergy Injection 2 Or More Injection Vanessa K. Ring, PA 04/15/2020 Allergy Injection 2 Or More Injection Ayla Sanchez, CALL CENTER DISPATCHER 04/08/2020 Allergy Injection 2 Or More Injection Vanessa K. Ring, PA 04/01/2020 Allergy Injection 2 Or More Injection Ayla Sanchez, CALL CENTER DISPATCHER 03/25/2020 Allergy Injection 2 Or More Injection Bienvenido M Mohsen, P.A. 03/18/2020 Allergy Injection 2 Or More Injection Malik Melye, PA 03/11/2020 Allergy Injection 2 Or More Injection Bienvenido M Mohsen, P.A. 03/05/2020 Allergy Injection 2 Or More Injection Malik Melye, PA 02/24/2020 Allergy Injection 2 Or More Injection Malik Lettiere, PA 02/17/2020 Allergy Injection 2 Or More Injection Malik Lettiere, PA 02/11/2020 Allergy Injection 2 Or More Injection Bienvenido M Mohsen, P.A. 02/05/2020 Allergy Injection 2 Or More Injection Malik Lettiere, PA 01/29/2020 Allergy Injection 2 Or More Injection Bienvenido M Mohsen, P.A. 01/23/2020 Allergy Injection 2 Or More Injection Bienvenido M Mohsen, P.A. 12/29/2019 Allergy Injection 2 Or More Injection Malik Lettdoylee, PA 12/23/2019 Allergy Injection 2 Or More Injection Malik Lettiere, PA 12/16/2019 Allergy Injection 2 Or More Injection Bienvenido M Mohsen, P.A. 12/08/2019 Allergy Injection 2 Or More Injection Malik Melye, PA 12/02/2019 Allergy Injection 2 Or More Injection Malik Lettiere, PA 11/25/2019 Allergy Injection 2 Or More Injection Malik Snehaiere, PA 11/18/2019 Allergy Injection 2 Or More Injection Malik Melye, PA 11/11/2019 Allergy Injection 2 Or More Injection Bienvenido Connolly, P.A. 11/03/2019 Allergy Injection 2 Or More Injection Malik Melye, PA 10/28/2019 Allergy Injection 2 Or More Injection Malik Snehaiere, PA 10/21/2019 Allergy Injection 2 Or More Injection Malik Snehaiere, PA 10/14/2019 Allergy Injection 2 Or More Injection Malik Lettiere, PA 10/09/2019 Allergy Injection 2 Or More Injection Malik Melye, PA 09/30/2019 Allergy Injection 2 Or More Injection Malik Melye, PA 09/02/2019 Allergy Injection 2 Or More Injection Bienvenido Connolly, P.A. 08/07/2019 Allergy Injection 2 Or More Injection Bienvenido Connolly, P.A. 07/18/2019 Allergy Injection 2 Or More Injection Ayla Sanchez, AHMET 06/27/2019 Allergy Injection 2 Or More Injection Vanessa Ana Cristina Ring, PA 06/06/2019 Allergy Injection 2 Or More [...] 01/30/2019 Allergy Injection 2 Or More Injection Bienvenidoantonia Connolly, P.A. 01/12/2019 Allergy Injection 2 Or More Injection Malik Melye, PA 12/19/2018 Allergy Injection 2 Or More Injection Vanessa K. Ring, PA 11/29/2018 Allergy Injection 2 Or More Injection Malik Lettiere, PA 11/09/2018 Allergy Injection 2 Or More Injection Saranya Riley, PA 10/19/2018 Allergy Injection 2 Or More Injection Malik Melye, PA 09/29/2018 Allergy Injection 2 Or More Injection Bienvenido Connolly, P.A. 09/08/2018 Allergy Injection 2 Or More Injection MalikNafisa Olguin, PA 08/17/2018 Allergy Injection 2 Or More Injection Vanessa K. Ring, PA 07/27/2018 Allergy Injection 2 Or More Injection Malik Sharif, PA 07/07/2018 Allergy Injection 2 Or More Injection Saranya Riley, PA 06/14/2018 Allergy Injection 2 Or More Injection Vanessa K. Ring, PA 05/24/2018 Allergy Injection 2 Or More Injection Vanessa K. Ring, PA 05/03/2018 Allergy Injection 2 Or More Injection Vanessa K. Ring, PA 04/12/2018 Allergy Injection 2 Or More Injection Porter Thomas, P.A. 03/22/2018 Allergy Injection 2 Or More Injection [facility] 03/01/2018 Allergy Injection 2 Or More Injection Vanessa K. Ring, PA 02/08/2018 Allergy Injection 2 Or More Injection [facility] 01/18/2018 Allergy Injection 2 Or More Injection Malik Sharif, PA 12/22/2017 Allergy Injection 2 Or More [...] 07/15/2017 Allergy Injection 2 Or More Injection Vnaessa K. Ring, PA 06/22/2017 Allergy Injection 2 Or More Injection Vanessa K. Ring, PA 06/01/2017 Allergy Injection 2 Or More Injection Hector Hagan, P.A. 01/23/2013 Allergy Injection 2 Or More Injection Porter Martha, P.A. 01/03/2013 Allergy Injection 2 Or More Injection Porter Martha, P.A. 12/13/2012 Allergy Injection 2 Or More Injection Porter Martha, P.A. 11/22/2012 Allergy Injection 2 Or More Injection Porter Martha, P.A. 11/01/2012 Allergy Injection 2 Or More Injection Porter Martha, P.A. 10/11/2012 Allergy Injection 2 Or More Injection Hector Hagan, P.A. 09/21/2012 Allergy Injection 2 Or More Injection Porter Thomas, P.A. 09/01/2012 Allergy Injection 2 Or More Injection Imelda Hernandez, [facility] 08/09/2012 Allergy Injection 2 Or More [...] Injection 2 Or More Injection Imelda Hernandez, [facility] 05/18/2011 Allergy Injection 2 Or More [...] Injection 2 Or More Injection Imelda Hernandez, [facility] 07/29/2010 Allergy Injection 2 Or More [...] Information Available Procedures Date Code Description Status 11/09/2020 93677 Allergy Injection 2 Or More Comp leted 11/02/2020 86879 Allergy Injection 2 Or More Comp leted 10/26/2020 45528 Allergy Injection 2 Or More Comp leted 10/19/2020 53732 Allergy Injection 2 Or More Comp leted 10/12/2020 32292 Allergy Injection 2 Or More Comp leted 10/05/2020 20394 Allergy Injection 2 Or More Comp leted 09/28/2020 12708 Allergy Injection 2 Or More Comp leted 09/21/2020 63523 Allergy Injection 2 Or More Comp leted 08/31/2020 60920 Allergy Injection 2 Or More Comp leted 08/24/2020 10720 Allergy Injection 2 Or More Comp leted 08/17/2020 32905 Allergy Injection 2 Or More Comp leted 08/10/2020 15446 Allergy Injection 2 Or More Comp leted 08/03/2020 45552 Allergy Injection 2 Or More Comp leted 07/29/2020 50552 Allergy Injection 2 Or More Comp leted 07/22/2020 98722 Allergy Injection 2 Or More Comp leted 07/15/2020 78161 Allergy Injection 2 Or More Comp leted 06/24/2020 51356 Allergy Injection 2 Or More Comp leted 06/17/2020 96272 Allergy Injection 2 Or More Comp leted 06/10/2020 71704 Allergy Injection 2 Or More Comp leted 06/03/2020 42401 Allergy Injection 2 Or More Comp leted 05/27/2020 25959 Allergy Injection 2 Or More Comp leted 05/20/2020 51100 Allergy Injection 2 Or More Comp leted 05/13/2020 93801 Allergy Injection 2 Or More Comp leted Medical Devices Description No Information Available Encounters Type Date Location Provider Dx Diagnosis Office Visit 07/23/2020 8:25a Main Office MEGAN Rock J01 .10 Acute frontal sinusitis, unspecified R05 Cough Office Visit 06/14/2020 3:50p Main Office Kaylee Max R1 0.30 Lower abdominal pain, unspecified Assessments Date Code Description Provider 11/02/2020 J30.89 Other allergic rhinitis Wilfredo Olguin, PA 10/26/2020 J30.89 Other allergic rhinitis Wilfredo Olguin, PA 10/19/2020 J30.89 Other allergic rhinitis Kamleshlorenshaniqua Coronado, PA 10/12/2020 J30.89 Other allergic rhinitis [...] J30.89 Other allergic rhinitis Ayla V illanuealex, CALL CENTER DISPATCHER 07/23/2020 J01.10 Acute frontal sinusitis, unspeci fied Wilfredo Olguin, PA 07/23/2020 R05 Cough Wilfredo ely, PA 07/22/2020 J30.89 Other allergic rhinitis Vanessa Conrad, PA 07/15/2020 J30.89 Other allergic rhinitis Ayla V illanueva, CALL CENTER DISPATCHER 06/24/2020 J30.89 Other allergic rhinitis Vanessa Conrad, PA 06/17/2020 J30.89 Other allergic rhinitis Ayla V illanueva, CALL CENTER DISPATCHER 06/14/2020 R10.30 Lower abdominal pain, unspecifie d Bienvenido Connolly PSanjuanaASanjuana 06/10/2020 J30.89 Other allergic rhinitis Vanessa Conrad, PA 06/03/2020 J30.89 Other allergic rhinitis Ayla V illanueva, CALL CENTER DISPATCHER 05/27/2020 J30.89 Other allergic rhinitis MEGAN Farris 05/20/2020 J30.89 Other allergic rhinitis MEGAN Pickering 05/13/2020 J30.89 Other allergic rhinitis MEGAN Farris Plan of Treatment No Information Available Functional Status Description No Information Available Mental Status Description No Information Available Referrals Description No Information Available
--- OUTSIDE RECORDS SUMMARY | 2020-12-07 13:58 | CCD | Continuity of Care Document ---
Author Author Alonzo OLGUIN PA Organization Unknown Address [address] [place] [address] Phone [phone] Care Team Providers Care Centura Technical Lead Senior Developer Name Role Phone Kaci Milan NP AUTM [phone] [facility] AUTM [phone] AUTM [phone] Problems Active Problems Provider Date Allergic rhinitis CASSIDY Gimenez Onset: 07/15/20 10 Essential hypertension Imelda Hernandez [facility] Onset: 07/15 Hyperlipidemia Imelda Hernandez [facility] Onset: 07/15/20 10 Allergic rhinitis Hector [...] 2 Or More Injection Vanessa K. MEGAN Conrda 07/22/2020 Allergy Injection 2 Or More Injection Ayla Sanchez NP 07/15/2020 Allergy Injection 2 Or More Injection Vanessa K. Houston, MEGAN 06/24/2020 Allergy Injection 2 Or More Injection Alya Sanchez NP 06/17/2020 Allergy Injection 2 Or More Injection Vanessa K. MEGAN Conrad 06/10/2020 Allergy Injection 2 Or More Injection Ayla Sanchez, SCIENTIFIC RECRUITER 06/03/2020 Allergy Injection 2 Or More Injection Vanessa K. Ring, PA 05/27/2020 Allergy Injection 2 Or More Injection Merna Coronado, PA 05/20/2020 Allergy Injection 2 Or More Injection Vanessa K. Ring, PA 05/13/2020 Allergy Injection 2 Or More Injection Ayla Sanchez, SCIENTIFIC RECRUITER 05/06/2020 Allergy Injection 2 Or More Injection Bienvenido M Mohsen, P.A. 04/29/2020 Allergy Injection 2 Or More Injection Ayla Sanchez, SCIENTIFIC RECRUITER 04/22/2020 Allergy Injection 2 Or More Injection Vanessa K. Ring, PA 04/15/2020 Allergy Injection 2 Or More Injection Ayla Sanchez, SCIENTIFIC RECRUITER 04/08/2020 Allergy Injection 2 Or More Injection Vanessa K. Ring, PA 04/01/2020 Allergy Injection 2 Or More Injection Ayla Sanchez, SCIENTIFIC RECRUITER 03/25/2020 Allergy Injection 2 Or More Injection [...] 03/22/2018 Allergy Injection 2 Or More Injection [facility] 03/01/2018 Allergy Injection 2 Or More Injection Vanessa K. Ring, PA 02/08/2018 Allergy Injection 2 Or More Injection [facility] 01/18/2018 Allergy Injection 2 Or [...] 06/01/2017 Allergy Injection 2 Or More Injection eHctor Hagan, P.A. 01/23/2013 Allergy Injection 2 Or [...] Injection 2 Or More Injection Imelda Hernandez, [facility] 08/09/2012 Allergy Injection 2 Or More [...] Injection 2 Or More Injection Imelda Hernandez, [facility] 05/18/2011 Allergy Injection 2 Or More [...] Injection 2 Or More Injection Imelda Hernandez, [facility] 07/29/2010 Allergy Injection 2 Or More [...] Allergy Injection 2 Or More Injection Hector Hgaan, P.A. 05/07/2010 Allergy Injection 2 Or More [...] Available Procedures Date Code Description Status 11/09/2020 52621 Allergy Injection 2 Or More Comp leted 11/02/2020 00025 Allergy Injection 2 Or More Comp leted 10/26/2020 13594 Allergy Injection 2 Or More Comp leted 10/19/2020 63940 Allergy Injection 2 Or More Comp leted 10/12/2020 43990 Allergy Injection 2 Or More Comp leted 10/05/2020 99734 Allergy Injection 2 Or More Comp leted 09/28/2020 34187 Allergy Injection 2 Or More Comp leted 09/21/2020 42777 Allergy Injection 2 Or More Comp leted 08/31/2020 27839 Allergy Injection 2 Or More Comp leted 08/24/2020 74558 Allergy Injection 2 Or More Comp leted 08/17/2020 87380 Allergy Injection 2 Or More Comp leted 08/10/2020 21337 Allergy Injection 2 Or More Comp leted 08/03/2020 15369 Allergy Injection 2 Or More Comp leted 07/29/2020 41007 Allergy Injection 2 Or More Comp leted 07/22/2020 90388 Allergy Injection 2 Or More Comp leted 07/15/2020 39787 Allergy Injection 2 Or More Comp leted 06/24/2020 71832 Allergy Injection 2 Or More Comp leted 06/17/2020 11754 Allergy Injection 2 Or More Comp leted 06/10/2020 54234 Allergy Injection 2 Or More Comp leted 06/03/2020 40866 Allergy Injection 2 Or More Comp leted 05/27/2020 54325 Allergy Injection 2 Or More Comp leted 05/20/2020 55611 Allergy Injection 2 Or More Comp leted 05/13/2020 41436 Allergy Injection 2 Or More Comp leted Medical Devices Description No Information Available Encounters Type Date Location Provider Dx Diagnosis Office Visit 07/23/2020 8:25a Main Office MEGAN Rock J01 .10 Acute frontal sinusitis, unspecified R05 Cough Office Visit 06/14/2020 3:50p Main Office Kaylee Max R1 0.30 Lower abdominal pain, unspecified Assessments Date Code Description Provider 11/09/2020 J30.89 Other allergic rhinitis Wilfredo Olguin, [...] J30.89 Other allergic rhinitis Ayla V illanuealex, SCIENTIFIC RECRUITER 07/23/2020 J01.10 Acute frontal sinusitis, unspeci fied Wilfredo Olguin, PA 07/23/2020 R05 Cough Wilfredo ely, PA 07/22/2020 J30.89 Other allergic rhinitis Vanessa Conrad, PA 07/15/2020 J30.89 Other allergic rhinitis Ayla V illanueva, SCIENTIFIC RECRUITER 06/24/2020 J30.89 Other allergic rhinitis Vanessa Conrad, PA 06/17/2020 J30.89 Other allergic rhinitis Ayla V illanueva, SCIENTIFIC RECRUITER 06/14/2020 R10.30 Lower abdominal pain, unspecifie d Bienvenido Connolly P.ASanjuana 06/10/2020 J30.89 Other allergic rhinitis Vanessa Conrad, PA 06/03/2020 J30.89 Other allergic rhinitis Ayla arellano, AHMET 05/27/2020 J30.89 Other allergic rhinitis MEGAN Farris 05/20/2020 J30.89 Other allergic rhinitis MEGAN Pickering 05/13/2020 J30.89 Other allergic rhinitis MEGAN Farris Plan of Treatment No Information Available Functional Status Description No Information Available Mental Status Description No Information Available Referrals Description No Information Available
--- OUTSIDE RECORDS SUMMARY | 2020-12-07 13:58 | CCD | Continuity of Care Document ---
Author Author Alonzo DELATORRE D.O. Organization Unknown Address [address] [place] [address] Phone [phone] Care Team Providers Care Fiscal Accounting Clerk Name Role Phone Talya Lozano NP AUTM [phone] Ambrose Johnson M.D. AUTM [phone] Problems Active Problems Provider Date Allergic rhinitis due to pollen Issa Mcbride Onset: 0 05/16/2011 Allergic rhinitis Issa Mcbride Onset: 05/16/2011 Conjunctivitis Issa Mcbride Onset: 05/16/2011 Peptic reflux disease Issa Mcbride Onset: 05/16/2011 Acute sinusitis Issa Mcbride Onset: 01/21/2012 Chronic allergic conjunctivitis Marina Zavala, P.ASanjuana Onse t: 01/14/2013 Chronic pansinusitis Marina Zavala, P.ASanjuana Onset: 01/14/20 13 Contact dermatitis due to non-medicinal chemical Lauren Zavala, P.ASanjuana Onset: 01/31/2013 Pure hypercholesterolemia Tyson Delatorre DO Onset: 07/03 Essential hypertension Tyson Delatorre DO Onset: 07/03/20 11 Allergic rhinitis due to animals Tyson Delatorre DO Onset : 06/29/2019 Social History Type Date Description Comments Sex Unknown Tobacco Use Start: Unknown End: Unknown Patient is a former smoker QUIT SMOKING OVER 14 YEARS AGO. Now uses smokeless tobacco. Tobacco Use Start: Unknown End: Unknown Patient is a former smoker Smoking Status Reviewed: 10/11/20 Patient is a former smoker Allergies, Adverse Reactions, Alerts Description No Known Drug Allergies Medications Active Medications SIG Qnty Indications Ordering Provide r Date Aerochamber Mini Aerosol Chamber Device use with inhaled medications as needed 1units R06.00 Tyson Delatorre, DO 03/01/2020 Fluticasone Propionate 50mcg/Act Suspension [place] Two Sprays In Each Nostril Every Day 16units J30.8 9 Tyson Delatorre, DO 04/15/2019 J30.1 J30.81 Saline Flush 0.9% Solution irrigate qd-bid prn J30.1 Tyson Delatorre, DO 07/03/2011 Cetirizine HCL 10mg Tablets 1qd - take one tablet by mouth every day 90tabs J30.1 Unknown Lisinopril 40mg Tablets 1 Tab PO qd Unknown Singulair 10mg Tablets Take One Tablet By Mouth Every Day 30tabs J30.1 Tyson Delatorre, DO J30.[address] One capsule one daily Unknown Famotidine 20mg Tablets 1 by mouth twice a day Unknown Metoprolol Succinate ER 50mg Tablets ER 24HR 1 by mouth every day Unknown / 000 Atorvastatin Calcium 10mg Tablets One Tablet daily Unknown Ventolin HFA 108(90Base) mcg/Act A erosol inhale 2 puffs by mouth every 4 hours as needed 8gm R06.00 Tyson Delatorre, DO Amlodipine Besylate 5mg Tablets Take One Tablet By Mouth Every Day Unknown Trazodone HCL 100mg Tablets Ismael Irving RPA-C Immunizations Description No Information Available Vital Signs Date Vital Result Comment 10/11/2020 9:06am Respiratory Rate 18 /min Heart Rate 53 /min BP Systolic 144 mmHg BP Diastolic 86 mmHg Height 70 inches 5'10" Weight 255.12 lb O2 % BldC Oximetry 99 % BMI (Body Mass Index) 36.6 kg/m2 03/01/2020 8:38am Height 70 inches 5'10" Weight 254.00 lb Body Temperature 96.7 F BMI (Body Mass Index) 36.4 kg/m2 Results Description No Information Available Procedures Date Code Description Status 11/21/2020 67864 Allergy Mixed Antigens Completed 07/04/2020 05371 Allergy Mixed Antigens Completed Medical Devices Description No Information Available Encounters Description No Information Available Assessments Date Code Description Provider 11/21/2020 J30.1 Allergic rhinitis due to pollen Allergy Injections 11/21/2020 J30.89 Other allergic rhinitis Allergy Injections 11/21/2020 J30.81 Allergic rhinitis due to animal (cat) (dog) hair and dander Allergy Injections 10/11/2020 J30.1 Allergic rhinitis due to pollen Nichole Nguyen PA-C 10/11/2020 J30.89 Other allergic rhinitis WendyMariluNichole PA-C 10/11/2020 J30.81 Allergic rhinitis due to animal (cat) (dog) hair and dander Nichole Nguyen PA-C 10/11/2020 H10.45 Other chronic allergic conjuncti vitis Nichole Nguyen PA-C 10/11/2020 R06.00 Dyspnea, unspecified Vandana Nguyen PA-C 10/11/2020 R05 Cough Nichole Nguyen PA-C 07/04/2020 J30.1 Allergic rhinitis due to pollen Allergy Injections 07/04/2020 J30.89 Other allergic rhinitis Allergy Injections 07/04/2020 J30.81 Allergic rhinitis due to animal (cat) (dog) hair and dander Allergy Injections Plan of Treatment Future Appointment(s):* 01/10/2021 9:00 am - Tyson Delatorre DO at [facility] 10/11/2020 - Nichole Nguyen PA-C* J30.1 Allergic rhinitis due to pollen* Comments:* Continue meds as prescribed. To continue the allergy injections on a weekly schedule. Discussed proper technique of administration of corticosteroid nasal spray. Discussed humidity precautions. Advised nasals saline. * Follow up:* 3 months. * J30.89 Other allergic rhinitis* Comments:* See above. * J30.81 Allergic rhinitis due to animal (cat) (dog) hair and dander * H10.45 Other chronic allergic conjunctivitis * R06.00 Dyspnea, unspecified * R05 Cough Functional Status Description No Information Available Mental Status Description No Information Available Referrals Description No Information Available
--- OUTSIDE RECORDS SUMMARY | 2020-12-07 13:59 | CCD | Continuity of Care Document ---
Author Author Alonzo OLGUIN PA Organization Unknown Address [address] [place] [id number] Phone [phone] Care Team Providers Care Client Relations Specialist Name Role Phone Kaci Milan NP AUTM [phone] [facility] AUTM [place] [employer] AUTM [phone] Problems Active Problems Provider Date Allergic rhinitis CASSIDY Gimenez Onset: 07/15/20 10 Essential hypertension Imelda Hernandez [facility] Onset: 07/15 Hyperlipidemia Imelda Hernandez [facility] Onset: 07/15/20 10 Allergic rhinitis [...] Injection 2 Or More Injection Ayla Sanchez, CLINICAL EDUCATION ASSISTANT 05/06/2020 Allergy Injection 2 Or More Injection Bienvenido M Mohsen, P.A. 04/29/2020 Allergy Injection 2 Or More Injection Ayla Sanchez, CLINICAL EDUCATION ASSISTANT 04/22/2020 Allergy Injection 2 Or More Injection Vanessa K. Ring, PA 04/15/2020 Allergy Injection 2 Or More Injection Ayla Sanchez, CLINICAL EDUCATION ASSISTANT 04/08/2020 Allergy Injection 2 Or More Injection Vanessa K. Ring, PA 04/01/2020 Allergy Injection 2 Or More Injection Ayla Sanchez, CLINICAL EDUCATION ASSISTANT 03/25/2020 Allergy Injection 2 Or More Injection [...] Injection 2 Or More Injection Ayla Sanchez, CLINICAL EDUCATION ASSISTANT 06/27/2019 Allergy Injection 2 Or More Injection [...] 03/22/2018 Allergy Injection 2 Or More Injection [facility] 03/01/2018 Allergy Injection 2 Or More Injection Vanessa K. Ring, PA 02/08/2018 Allergy Injection 2 Or More Injection [facility] 01/18/2018 Allergy Injection 2 Or [...] Injection 2 Or More Injection Imelda Hernandez, [facility] 08/09/2012 Allergy Injection 2 Or [...] Injection 2 Or More Injection Imelda Hernandez, [facility] 05/18/2011 Allergy Injection 2 Or [...] Injection 2 Or More Injection Imelda Hernandez, [facility] 07/29/2010 Allergy Injection 2 Or [...] Available Procedures Date Code Description Status 11/02/2020 10363 Allergy Injection 2 Or More Comp leted 10/26/2020 75964 Allergy Injection 2 Or More Comp leted 10/19/2020 59426 Allergy Injection 2 Or More Comp leted 10/12/2020 55137 Allergy Injection 2 Or More Comp leted 10/05/2020 84105 Allergy Injection 2 Or More Comp leted 09/28/2020 43934 Allergy Injection 2 Or More Comp leted 09/21/2020 84703 Allergy Injection 2 Or More Comp leted 08/31/2020 80571 Allergy Injection 2 Or More Comp leted 08/24/2020 42800 Allergy Injection 2 Or More Comp leted 08/17/2020 15721 Allergy Injection 2 Or More Comp leted 08/10/2020 52153 Allergy Injection 2 Or More Comp leted 08/03/2020 51025 Allergy Injection 2 Or More Comp leted 07/29/2020 50289 Allergy Injection 2 Or More Comp leted 07/22/2020 35045 Allergy Injection 2 Or More Comp leted 07/15/2020 55206 Allergy Injection 2 Or More Comp leted 06/24/2020 87840 Allergy Injection 2 Or More Comp leted 06/17/2020 11844 Allergy Injection 2 Or More Comp leted 06/10/2020 26597 Allergy Injection 2 Or More Comp leted 06/03/2020 02274 Allergy Injection 2 Or More Comp leted 05/27/2020 65060 Allergy Injection 2 Or More Comp leted 05/20/2020 38186 Allergy Injection 2 Or More Comp leted 05/13/2020 80337 Allergy Injection 2 Or More Comp leted 05/06/2020 65014 Allergy Injection 2 Or More Comp leted Medical Devices Description No Information Available Encounters Type Date Location Provider Dx Diagnosis Office Visit 07/23/2020 8:25a Main Office MEGAN Rock J01 .10 Acute frontal sinusitis, unspecified R05 Cough Office Visit 06/14/2020 3:50p Main Office Kaylee Max R1 0.30 Lower abdominal pain, unspecified Assessments Date Code Description Provider 10/26/2020 J30.89 Other allergic rhinitis Wilfredo Skelton Sharif, PA 10/19/2020 J30.89 Other allergic rhinitis [...] J30.89 Other allergic rhinitis Ayla V illanueva, CLINICAL EDUCATION ASSISTANT 07/23/2020 J01.10 Acute frontal sinusitis, unspeci fied Malik Sharif, PA 07/23/2020 R05 Cough Wilfredo ely, PA 07/22/2020 J30.89 Other allergic rhinitis Vanessabret Conrad, PA 07/15/2020 J30.89 Other allergic rhinitis Ayla V illanueva, CLINICAL EDUCATION ASSISTANT 06/24/2020 J30.89 Other allergic rhinitis Vanessa Ana Cristina Ring, PA 06/17/2020 J30.89 Other allergic rhinitis Ayla V illanueva, CLINICAL EDUCATION ASSISTANT 06/14/2020 R10.30 Lower abdominal pain, unspecifie d Bienvenido Connolly, P.A. 06/10/2020 J30.89 Other allergic rhinitis Vanessa Ana Cristina Ring, PA 06/03/2020 J30.89 Other allergic rhinitis Ayla V illanueva, CLINICAL EDUCATION ASSISTANT 05/27/2020 J30.89 Other allergic rhinitis Vanessabret Conrad, PA 05/20/2020 J30.89 Other allergic rhinitis Lissette Coronado, PA 05/13/2020 J30.89 Other allergic rhinitis MEGAN Farris 05/06/2020 J30.89 Other allergic rhinitis Ayla arellano NP Plan of Treatment No Information Available Functional Status Description No Information Available Mental Status Description No Information Available Referrals Description No Information Available
--- OUTSIDE RECORDS SUMMARY | 2020-12-07 13:59 | CCD | Continuity of Care Document ---
Author Author Alonzo OLGUIN PA Organization Unknown Address [address] [place] [address] Phone [phone] Care Team Providers Care Computer Technical Support Specialist Name Role Phone Kaci Milan NP AUTM [phone] [facility] AUTM [phone] [place] [address] [employer] AUTM [phone] Problems Active Problems Provider Date Allergic rhinitis CASSIDY Gimenez Onset: 07/15/20 10 Essential hypertension Imelda Hernandez [facility] Onset: 07/15 Hyperlipidemia Imelda Hernandez [facility] Onset: 07/15/20 10 Allergic rhinitis Hector [...] 09/21/2020 Allergy Injection 2 Or More Injection Wilfredo Olguin, MEGAN 08/31/2020 Allergy Injection 2 Or More Injection Wilfredo Olguin, MEGAN 08/24/2020 Allergy Injection 2 Or More Injection Wilfredo Olguin, MEGAN 08/17/2020 Allergy Injection 2 Or More Injection Wilfredo Olguin, MEGAN 08/10/2020 Allergy Injection 2 Or More Injection MEGAN Rock 08/03/2020 Allergy Injection 2 Or More Injection Ayla Sanchez NP 07/29/2020 Allergy Injection 2 Or More Injection Vanessa K. [place], PA 07/22/2020 Allergy Injection 2 Or More Injection Ayla Sanchez, AHMET 07/15/2020 Allergy Injection 2 Or More Injection Vanessa K. Ring, PA 06/24/2020 Allergy Injection 2 Or More Injection Ayla Sanchez, RECRUITING AND SELECTION CONSULTANT 06/17/2020 Allergy Injection 2 Or More Injection Vanessa K. Ring, PA 06/10/2020 Allergy Injection 2 Or More Injection Ayla Daniel, AHMET 06/03/2020 Allergy Injection 2 Or More Injection Vanessa K. Ring, PA 05/27/2020 Allergy Injection 2 Or More Injection Merna Coronado, PA 05/20/2020 Allergy Injection 2 Or More Injection Vanessa K. Ring, PA 05/13/2020 Allergy Injection 2 Or More Injection Ayla Sanchez, RECRUITING AND SELECTION CONSULTANT 05/06/2020 Allergy Injection 2 Or More Injection Bienvenido Connolly, P.A. 04/29/2020 Allergy Injection 2 Or More Injection Ayla Sanchez, RECRUITING AND SELECTION CONSULTANT 04/22/2020 Allergy Injection 2 Or More Injection Vanessa K. Ring, PA 04/15/2020 Allergy Injection 2 Or More Injection Ayla Sanchez, RECRUITING AND SELECTION CONSULTANT 04/08/2020 Allergy Injection 2 Or More Injection Vanessa K. Ring, PA 04/01/2020 Allergy Injection 2 Or More Injection Ayla Sanchez, RECRUITING AND SELECTION CONSULTANT 03/25/2020 Allergy Injection 2 Or More Injection Bienvenido Connolly, P.A. 03/18/2020 Allergy Injection 2 Or More Injection Malik Melye, PA 03/11/2020 Allergy Injection 2 Or More Injection Bienvenido Connolly, P.A. 03/05/2020 Allergy Injection 2 Or More Injection Malik Lettiere, PA 02/24/2020 Allergy Injection 2 Or More Injection Malik Lettiere, PA 02/17/2020 Allergy Injection 2 Or More Injection Malik Lettiere, PA 02/11/2020 Allergy Injection 2 Or More Injection Bienvenido Connolly, P.A. 02/05/2020 Allergy Injection 2 Or More Injection Malik Lettiere, PA 01/29/2020 Allergy Injection 2 Or More Injection Bienvenido Connolly, P.A. 01/23/2020 Allergy Injection 2 Or More Injection Bienvenido Connolly, P.A. 12/29/2019 Allergy Injection 2 Or More Injection Malik Lettiere, PA 12/23/2019 Allergy Injection 2 Or More Injection Malik Lettiere, PA 12/16/2019 Allergy Injection 2 Or More Injection Bienvenido Connolly, P.A. 12/08/2019 Allergy Injection 2 Or More [...] 2 Or More Injection Malik Melye, PA 10/21/2019 Allergy Injection 2 Or More Injection Malik Melye, PA 10/14/2019 Allergy Injection 2 Or More Injection Malik Melye, PA 10/09/2019 Allergy Injection 2 Or More Injection Malik Melye, PA 09/30/2019 Allergy Injection 2 Or More Injection Malik Melye, PA 09/02/2019 Allergy Injection 2 Or More Injection Bienvenido Connolly, P.A. 08/07/2019 Allergy Injection 2 Or More Injection Bienvenido Connolly, P.A. 07/18/2019 Allergy Injection 2 Or More Injection Ayla Sanchez, RECRUITING AND SELECTION CONSULTANT 06/27/2019 Allergy Injection 2 Or More Injection [...] 02/21/2019 Allergy Injection 2 Or More Injection Wilfredo Olguin, PA 01/30/2019 Allergy Injection 2 Or More Injection Bienvenido Connolly, P.A. 01/12/2019 Allergy Injection 2 Or More Injection Malik Melye, PA 12/19/2018 Allergy Injection 2 Or More Injection Vanessa K. Ring, PA 11/29/2018 Allergy Injection 2 Or More Injection Malik Melye, PA 11/09/2018 Allergy Injection 2 Or More Injection Saranya Riley, PA 10/19/2018 Allergy Injection 2 Or More Injection Malik Melye, PA 09/29/2018 Allergy Injection 2 Or More Injection Bienvenidoantonia Connolly, P.A. 09/08/2018 Allergy Injection 2 Or More Injection Malik Sharif, PA 08/17/2018 Allergy Injection 2 Or More Injection Avnessa K. Ring, PA 07/27/2018 Allergy Injection 2 Or More Injection Malik Lettiere, PA 07/07/2018 Allergy Injection 2 Or More Injection Saranya Riley, PA 06/14/2018 Allergy Injection 2 Or More Injection Vanessa K. Ring, PA 05/24/2018 Allergy Injection 2 Or More Injection Vanessa K. Ring, PA 05/03/2018 Allergy Injection 2 Or More Injection Vanessa K. Ring, PA 04/12/2018 Allergy Injection 2 Or More Injection Porter Thomas, P.A. 03/22/2018 Allergy Injection 2 Or More Injection [facility] 03/01/2018 Allergy Injection 2 Or More Injection Vanessa K. Ring, PA 02/08/2018 Allergy Injection 2 Or More Injection [facility] 01/18/2018 Allergy Injection 2 Or [...] 2 Or More Injection Imelda Hernandez, [facility] 08/09/2012 Allergy Injection 2 Or More [...] 2 Or More Injection Imelda Hernandez, [facility] 05/18/2011 Allergy Injection 2 Or More [...] 10/07/2010 Allergy Injection 2 Or More Injection Proter Thomas, P.A. 09/23/2010 Allergy Injection 2 Or More Injection Porter Thomas, P.A. 09/09/2010 Allergy Injection 2 Or More Injection Porter Thomas, P.A. 08/26/2010 Allergy Injection 2 Or More Injection Porter Thomas, P.A. 08/12/2010 Allergy Injection 2 Or More Injection Imelda Hernandez, [facility] 07/29/2010 Allergy Injection 2 Or More Injection Porter Thomas, P.A. 07/15/2010 Allergy Injection 2 Or More Injection Porter Thomas, P.A. 07/01/2010 Allergy Injection 2 Or More Injection Hector VenusSanjuana Hagan, P.A. 06/25/2010 Allergy Injection 2 Or More Injection Hector VenusSanjuana Hagan, P.A. 06/18/2010 Allergy Injection 2 Or More Injection Hector VenusSanjuana Hagan, P.A. 06/11/2010 Allergy Injection 2 Or More Injection Hector VenusSanjuana Hagan, P.A. 06/04/2010 Allergy Injection 2 Or More Injection Hector Hagan, P.A. 05/28/2010 Allergy Injection 2 Or More Injection Hector VenusSanjuana Hagan, P.A. 05/21/2010 Allergy Injection 2 Or More Injection Hector VenusSanjuana Hagan, P.A. 05/14/2010 Allergy Injection 2 Or More Injection Hector Hagan, P.A. 05/07/2010 Allergy Injection 2 Or More Injection Hector VenusSanjuana Hagan, P.A. 04/30/2010 Allergy Injection 2 Or More Injection Hector VenusSanjuana Hagan, P.A. 04/23/2010 Allergy Injection 2 Or More Injection Hector Hagan, P.A. 04/16/2010 Allergy Injection 2 Or More Injection Hector Guillermina Bentley, P.A. 04/09/2010 Allergy Injection 2 Or More Injection Hector VenusSanjuana Hagan, P.A. 04/02/2010 Allergy Injection 2 Or More Injection Hector VenusSanjuana Hagan, P.A. 03/26/2010 Allergy Injection 2 Or More Injection Hector Guillermina Bentley, P.A. 03/19/2010 Allergy Injection 2 Or More Injection Hector VenusSanjuana Hagan, P.A. 03/12/2010 Allergy Injection 2 Or More Injection Hector VenusSanjuana Hagan, P.A. 03/05/2010 Allergy Injection 2 Or More Injection Hector VenusSanjuana Hagan, P.A. 02/26/2010 Immunizations Description No Information [...] Information Available Procedures Date Code Description Status 10/26/2020 75957 Allergy Injection 2 Or More Comp leted 10/19/2020 69551 Allergy Injection 2 Or More Comp leted 10/12/2020 45202 Allergy Injection 2 Or More Comp leted 10/05/2020 87486 Allergy Injection 2 Or More Comp leted 09/28/2020 38602 Allergy Injection 2 Or More Comp leted 09/21/2020 04502 Allergy Injection 2 Or More Comp leted 08/31/2020 27279 Allergy Injection 2 Or More Comp leted 08/24/2020 10541 Allergy Injection 2 Or More Comp leted 08/17/2020 45263 Allergy Injection 2 Or More Comp leted 08/10/2020 86592 Allergy Injection 2 Or More Comp leted 08/03/2020 37634 Allergy Injection 2 Or More Comp leted 07/29/2020 84249 Allergy Injection 2 Or More Comp leted 07/22/2020 53730 Allergy Injection 2 Or More Comp leted 07/15/2020 95463 Allergy Injection 2 Or More Comp leted 06/24/2020 77250 Allergy Injection 2 Or More Comp leted 06/17/2020 99883 Allergy Injection 2 Or More Comp leted 06/10/2020 04953 Allergy Injection 2 Or More Comp leted 06/03/2020 16844 Allergy Injection 2 Or More Comp leted 05/27/2020 94460 Allergy Injection 2 Or More Comp leted 05/20/2020 23903 Allergy Injection 2 Or More Comp leted 05/13/2020 90501 Allergy Injection 2 Or More Comp leted 05/06/2020 20730 Allergy Injection 2 Or More Comp leted 04/29/2020 07633 Allergy Injection 2 Or More Comp leted Medical Devices Description No Information Available Encounters Type Date Location Provider Dx Diagnosis Office Visit 07/23/2020 8:25a Main Office MEGAN Rock J01 .10 Acute frontal sinusitis, unspecified R05 Cough Office Visit 06/14/2020 3:50p Main Office Kaylee Max R1 0.30 Lower abdominal pain, unspecified Assessments Date Code Description Provider 10/26/2020 J30.89 Other allergic rhinitis MEGAN Rock 10/19/2020 J30.89 Other allergic rhinitis Lissette Coronado, PA 10/12/2020 J30.89 Other allergic rhinitis Wilferdo Olguin, PA 10/05/2020 J30.89 Other allergic rhinitis Malik Sharif, PA 09/28/2020 Z20.828 Contact with and (fox spected) exposure to other viral communicable diseases Wilfredo Olguin, PA 09/21/2020 J30.89 Other allergic rhinitis Wilfredo Olguin, PA 08/31/2020 J30.89 Other allergic rhinitis Malik [...] J30.89 Other allergic rhinitis Ayla V illanueva, RECRUITING AND SELECTION CONSULTANT 07/23/2020 J01.10 Acute frontal sinusitis, unspeci fied Wilfredo Olguin, PA 07/23/2020 R05 Cough Wilfredo ely, PA 07/22/2020 J30.89 Other allergic rhinitis Vanessa Ana Cristina Ring, PA 07/15/2020 J30.89 Other allergic rhinitis Ayla V illanueva, RECRUITING AND SELECTION CONSULTANT 06/24/2020 J30.89 Other allergic rhinitis Vanessa Ana Cristina Ring, PA 06/17/2020 J30.89 Other allergic rhinitis Ayla V illanueva, RECRUITING AND SELECTION CONSULTANT 06/14/2020 R10.30 Lower abdominal pain, unspecifie d Bienvenido Connolly, P.A. 06/10/2020 J30.89 Other allergic rhinitis Vanessa K. Ring, PA 06/03/2020 J30.89 Other allergic rhinitis Ayla V illanueva, RECRUITING AND SELECTION CONSULTANT 05/27/2020 J30.89 Other allergic rhinitis Vanessa K. Ring, PA 05/20/2020 J30.89 Other allergic rhinitis Lissette Coronado, PA 05/13/2020 J30.89 Other allergic rhinitis Vanessa K. Ring, PA 05/06/2020 J30.89 Other allergic rhinitis Ayla arellano NP 04/29/2020 J30.89 Other allergic rhinitis Kaylee Max Plan of Treatment No Information Available Functional Status Description No Information Available Mental Status Description No Information Available Referrals Description No Information Available
--- OUTSIDE RECORDS SUMMARY | 2020-12-07 13:59 | CCD | Continuity of Care Document ---
Author Author Alonzo OLGUIN PA Organization Unknown Address [address] [place] [phone] Phone [phone] Care Team Providers Care Chief Financial Officer Name Role Phone Kaci Milan NP AUTM [phone] [facility] AUTM [phone] [place] [address] [employer] AUTM [phone] Problems Active Problems Provider Date Allergic rhinitis CASSIDY Gimenez Onset: 07/15/20 10 Essential hypertension Imelda Hernandez [facility] Onset: 07/15 Hyperlipidemia Imelda Hernandez [facility] Onset: 07/15/20 10 Allergic rhinitis Hector [...] Injection 2 Or More Injection Ayla Sanchez, PRINTING PLATE CLERK 06/17/2020 Allergy Injection 2 Or More Injection Vanessa K. Ring, PA 06/10/2020 Allergy Injection 2 Or More Injection Ayla Daniel, AHMET 06/03/2020 Allergy Injection 2 Or More Injection Vanessa K. Ring, PA 05/27/2020 Allergy Injection 2 Or More Injection Merna Coronado, PA 05/20/2020 Allergy Injection 2 Or More Injection Vanessa K. Ring, PA 05/13/2020 Allergy Injection 2 Or More Injection Ayla Sanchez, PRINTING PLATE CLERK 05/06/2020 Allergy Injection 2 Or More Injection Bienvenido Connolly, P.A. 04/29/2020 Allergy Injection 2 Or More Injection Ayla Sanchez, PRINTING PLATE CLERK 04/22/2020 Allergy Injection 2 Or More Injection Vanessa K. Ring, PA 04/15/2020 Allergy Injection 2 Or More Injection Ayla Sanchez, PRINTING PLATE CLERK 04/08/2020 Allergy Injection 2 Or More Injection Vanessa K. Ring, PA 04/01/2020 Allergy Injection 2 Or More Injection Ayla Sanchez, PRINTING PLATE CLERK 03/25/2020 Allergy Injection 2 Or More Injection [...] Allergy Injection 2 Or More Injection Malik eMlye, PA 09/30/2019 Allergy Injection 2 Or More Injection Malik Melye, PA 09/02/2019 Allergy Injection 2 Or More Injection Bienvenido Connolly, P.A. 08/07/2019 Allergy Injection 2 Or More Injection Bienvenido Connolly, P.A. 07/18/2019 Allergy Injection 2 Or More Injection Ayla Sanchez, PRINTING PLATE CLERK 06/27/2019 Allergy Injection 2 Or More Injection [...] 07/27/2018 Allergy Injection 2 Or More Injection Mlaik Lettiere, PA 07/07/2018 Allergy Injection 2 Or More Injection Saranya Riley, PA 06/14/2018 Allergy Injection 2 Or More Injection Vanessa K. Ring, PA 05/24/2018 Allergy Injection 2 Or More Injection Vanessa K. Ring, PA 05/03/2018 Allergy Injection 2 Or More Injection Vanessa K. Ring, PA 04/12/2018 Allergy Injection 2 Or More Injection Porter Thomas, P.A. 03/22/2018 Allergy Injection 2 Or More Injection [facility] 03/01/2018 Allergy Injection 2 Or More Injection Vanessa K. Ring, PA 02/08/2018 Allergy Injection 2 Or More Injection [facility] 01/18/2018 Allergy Injection 2 Or [...] 09/01/2012 Allergy Injection 2 Or More Injection mIelda Hernandez, [facility] 08/09/2012 Allergy Injection 2 Or More [...] 12/31/2011 Allergy Injection 2 Or More Injection Hetcor Hagan, P.A. 12/16/2011 Allergy Injection 2 Or [...] Injection 2 Or More Injection Imelda Hernandez, [facility] 05/18/2011 Allergy Injection 2 Or More [...] Allergy Injection 2 Or More Injection Porter Thmoas, P.A. 09/09/2010 Allergy Injection 2 Or More Injection Porter Thomas, P.A. 08/26/2010 Allergy Injection 2 Or More Injection Porter Thomas, P.A. 08/12/2010 Allergy Injection 2 Or More Injection Imelda Hernandez, [facility] 07/29/2010 Allergy Injection 2 Or More [...] Allergy Injection 2 Or More Injection Hector VenusSnajuana Hagan, P.A. 04/23/2010 Allergy Injection 2 Or [...] Available Procedures Date Code Description Status 10/26/2020 56199 Allergy Injection 2 Or More Comp leted 10/19/2020 60056 Allergy Injection 2 Or More Comp leted 10/12/2020 67547 Allergy Injection 2 Or More Comp leted 10/05/2020 96278 Allergy Injection 2 Or More Comp leted 09/28/2020 83731 Allergy Injection 2 Or More Comp leted 09/21/2020 69437 Allergy Injection 2 Or More Comp leted 08/31/2020 14704 Allergy Injection 2 Or More Comp leted 08/24/2020 61618 Allergy Injection 2 Or More Comp leted 08/17/2020 52484 Allergy Injection 2 Or More Comp leted 08/10/2020 96646 Allergy Injection 2 Or More Comp leted 08/03/2020 95355 Allergy Injection 2 Or More Comp leted 07/29/2020 15015 Allergy Injection 2 Or More Comp leted 07/22/2020 52855 Allergy Injection 2 Or More Comp leted 07/15/2020 19263 Allergy Injection 2 Or More Comp leted 06/24/2020 30065 Allergy Injection 2 Or More Comp leted 06/17/2020 76375 Allergy Injection 2 Or More Comp leted 06/10/2020 02069 Allergy Injection 2 Or More Comp leted 06/03/2020 86718 Allergy Injection 2 Or More Comp leted 05/27/2020 82498 Allergy Injection 2 Or More Comp leted 05/20/2020 73226 Allergy Injection 2 Or More Comp leted 05/13/2020 48900 Allergy Injection 2 Or More Comp leted 05/06/2020 52765 Allergy Injection 2 Or More Comp leted 04/29/2020 70997 Allergy Injection 2 Or More Comp leted Medical Devices Description No Information Available Encounters Type Date Location Provider Dx Diagnosis Office Visit 07/23/2020 8:25a Main Office MEGAN Rock J01 .10 Acute frontal sinusitis, unspecified R05 Cough Office Visit 06/14/2020 3:50p Main Office Kaylee Max R1 0.30 Lower abdominal pain, unspecified Assessments Date Code Description Provider 10/19/2020 J30.89 Other allergic rhinitis MEGAN Pickering 10/12/2020 J30.89 Other allergic rhinitis Wilfredo Olguin, [...] J30.89 Other allergic rhinitis Ayla V illanuealex, PRINTING PLATE CLERK 07/23/2020 J01.10 Acute frontal sinusitis, unspeci fied Wilfredo Olguin, PA 07/23/2020 R05 Cough Wilfredo ely, PA 07/22/2020 J30.89 Other allergic rhinitis Vanessabret Conrad, PA 07/15/2020 J30.89 Other allergic rhinitis Ayla V illanuealex, PRINTING PLATE CLERK 06/24/2020 J30.89 Other allergic rhinitis Vanessabret Conrad, PA 06/17/2020 J30.89 Other allergic rhinitis Ayla V illanueva, PRINTING PLATE CLERK 06/14/2020 R10.30 Lower abdominal pain, unspecifie d Bienveindo Connolly, P.A. 06/10/2020 J30.89 Other allergic rhinitis Vanessa Ana Cristina Ring, PA 06/03/2020 J30.89 Other allergic rhinitis Ayla V illanueva, PRINTING PLATE CLERK 05/27/2020 J30.89 Other allergic rhinitis Vansesa K. Ring, PA 05/20/2020 J30.89 Other allergic rhinitis Lissette Coronado, PA 05/13/2020 J30.89 Other allergic rhinitis Vanessa Ana Cristina Ring, PA 05/06/2020 J30.89 Other allergic rhinitis Ayla V illanueva, PRINTING PLATE CLERK 04/29/2020 J30.89 Other allergic rhinitis Kaylee Max Plan of Treatment No Information Available Functional Status Description No Information Available Mental Status Description No Information Available Referrals Description No Information Available
--- OUTSIDE RECORDS SUMMARY | 2020-12-07 13:59 | CCD | Continuity of Care Document ---
Author Author Alonzo CORONADO PA Organization Unknown Address [address] [place] [address] Phone [phone] Care Team Providers Care Child Care Education Coordinator Name Role Phone Kaci Milan NP AUTM [phone] [facility] AUTM [phone] AUTM [phone] Problems Active Problems Provider Date Allergic rhinitis DENNISE Gimenez Onset: 07/15/20 10 Essential hypertension Imelda Hernandez [facility] Onset: 07/15 Hyperlipidemia Imelda Hernandez [facility] Onset: 07/15/20 10 Allergic rhinitis [...] 10/05/2020 Allergy Injection 2 Or More Injection Wilfredo Olguin, MEGAN 09/28/2020 Allergy Injection 2 Or More Injection MEGAN Rock 09/21/2020 Allergy Injection 2 Or More Injection Wilfredo Olguin, MEGAN 08/31/2020 Allergy Injection 2 Or More Injection Wilfredo Olguin, MEGAN 08/24/2020 Allergy Injection 2 Or More Injection Wilfredo Olguin, MEGAN 08/17/2020 Allergy Injection 2 Or More Injection Wilfredo Olguin, MEGAN 08/10/2020 Allergy Injection 2 Or More Injection Wilfredo Olguin, MEGNA 08/03/2020 Allergy Injection 2 Or More Injection Ayla Daniel, AHMET 07/29/2020 Allergy Injection 2 Or More Injection Vanessa K. Houston, MEGAN 07/22/2020 Allergy Injection 2 Or More Injection Ayla Sanchez, STATE TROOPER 07/15/2020 Allergy Injection 2 Or More Injection Vanessa K. Ring, PA 06/24/2020 Allergy Injection 2 Or More Injection Ayla Sanchez, STATE TROOPER 06/17/2020 Allergy Injection 2 Or More Injection Vanessa K. Ring, PA 06/10/2020 Allergy Injection 2 Or More Injection Ayla Sanchez, STATE TROOPER 06/03/2020 Allergy Injection 2 Or More Injection Vanessa K. Houston, PA 05/27/2020 Allergy Injection 2 Or More Injection MEGAN Tuttle 05/20/2020 Allergy Injection 2 Or More Injection Vanessa K. Ring, PA 05/13/2020 Allergy Injection 2 Or More Injection Ayla Sanchez, STATE TROOPER 05/06/2020 Allergy Injection 2 Or More Injection Bienvenidoantonia Connolly, P.A. 04/29/2020 Allergy Injection 2 Or More Injection Ayla Sanchez, STATE TROOPER 04/22/2020 Allergy Injection 2 Or More Injection Vanessa K. Ring, PA 04/15/2020 Allergy Injection 2 Or More Injection Ayla Sanchez, STATE TROOPER 04/08/2020 Allergy Injection 2 Or More Injection Vanessa K. Ring, PA 04/01/2020 Allergy Injection 2 Or More Injection Ayla Sanchez, STATE TROOPER 03/25/2020 Allergy Injection 2 Or More Injection [...] 2 Or More Injection Malik Snehaiere, PA 01/29/2020 Allergy Injection 2 Or More Injection Bienvenido Connolly, P.A. 01/23/2020 Allergy Injection 2 Or More Injection Bienvenido Connolly, P.A. 12/29/2019 Allergy Injection 2 Or More Injection Malik Snehaiere, PA 12/23/2019 Allergy Injection 2 Or More [...] 11/11/2019 Allergy Injection 2 Or More Injection Bienvenidoantonia Connolly, P.A. 11/03/2019 Allergy Injection 2 Or [...] Injection 2 Or More Injection Ayla Sanchez, STATE TROOPER 06/27/2019 Allergy Injection 2 Or More Injection Vanessa Ana Cristina Ring, PA 06/06/2019 Allergy Injection 2 Or More Injection Vanessa K. Ring, PA 05/16/2019 Allergy Injection 2 Or More Injection Saranya Riley, PA 04/25/2019 Allergy Injection 2 Or More Injection Vanessa K. Ring, PA 04/04/2019 Allergy Injection 2 Or [...] 2 Or More Injection Malik Lettiere, PA 08/17/2018 Allergy Injection 2 Or More [...] 03/22/2018 Allergy Injection 2 Or More Injection [facility] 03/01/2018 Allergy Injection 2 Or More Injection Vanessa K. Ring, PA 02/08/2018 Allergy Injection 2 Or More Injection [facility] 01/18/2018 Allergy Injection 2 Or [...] Allergy Injection 2 Or More Injection Imelda Adrien. Hernandez, [facility] 08/09/2012 Allergy Injection 2 Or [...] Injection 2 Or More Injection Imelda Hernandez, [facility] 05/18/2011 Allergy Injection 2 Or [...] Injection 2 Or More Injection Imelda Hernandez, [facility] 07/29/2010 Allergy Injection 2 Or [...] Information Available Procedures Date Code Description Status 10/19/2020 96001 Allergy Injection 2 Or More Comp leted 10/12/2020 12410 Allergy Injection 2 Or More Comp leted 10/05/2020 78426 Allergy Injection 2 Or More Comp leted 09/28/2020 49809 Allergy Injection 2 Or More Comp leted 09/21/2020 73337 Allergy Injection 2 Or More Comp leted 08/31/2020 90192 Allergy Injection 2 Or More Comp leted 08/24/2020 83615 Allergy Injection 2 Or More Comp leted 08/17/2020 04241 Allergy Injection 2 Or More Comp leted 08/10/2020 30065 Allergy Injection 2 Or More Comp leted 08/03/2020 04220 Allergy Injection 2 Or More Comp leted 07/29/2020 54282 Allergy Injection 2 Or More Comp leted 07/22/2020 42788 Allergy Injection 2 Or More Comp leted 07/15/2020 08332 Allergy Injection 2 Or More Comp leted 06/24/2020 71028 Allergy Injection 2 Or More Comp leted 06/17/2020 92459 Allergy Injection 2 Or More Comp leted 06/10/2020 95810 Allergy Injection 2 Or More Comp leted 06/03/2020 80565 Allergy Injection 2 Or More Comp leted 05/27/2020 92322 Allergy Injection 2 Or More Comp leted 05/20/2020 25455 Allergy Injection 2 Or More Comp leted 05/13/2020 18434 Allergy Injection 2 Or More Comp leted 05/06/2020 38289 Allergy Injection 2 Or More Comp leted 04/29/2020 09190 Allergy Injection 2 Or More Comp leted 04/22/2020 49879 Allergy Injection 2 Or More Comp leted Medical Devices Description No Information Available Encounters Type Date Location Provider Dx Diagnosis Office Visit 07/23/2020 8:25a Main Office MEGAN Rock J01 .10 Acute frontal sinusitis, unspecified R05 Cough Office Visit 06/14/2020 3:50p Main Office Pamela Max.Vicky R1 0.30 Lower abdominal pain, unspecified Assessments Date Code Description Provider 10/19/2020 J30.89 Other allergic rhinitis MEGAN Pickering 10/12/2020 J30.89 Other allergic rhinitis MEGAN Rock 10/05/2020 J30.89 Other allergic rhinitis Wilfredo Olguin, [...] PA 08/17/2020 J30.9 Allergic rhinitis, unspecified M patriciaaye Nafisa Olguin, PA 08/10/2020 J30.89 Other allergic rhinitis Wilfredo Olguin, PA 08/03/2020 J30.89 Other allergic rhinitis Wilfredo Olguin, PA 07/29/2020 J30.89 Other allergic rhinitis Ayla V illanueva, STATE TROOPER 07/23/2020 J01.10 Acute frontal sinusitis, unspeci fied Wilfredo Olguin, PA 07/23/2020 R05 Cough Wilfredo ely, PA 07/22/2020 J30.89 Other allergic rhinitis Vanessa Ana Cristina Ring, PA 07/15/2020 J30.89 Other allergic rhinitis Ayla V illanueva, STATE TROOPER 06/24/2020 J30.89 Other allergic rhinitis Vanessa Ana Cristina Ring, PA 06/17/2020 J30.89 Other allergic rhinitis Ayla V illanueva, STATE TROOPER 06/14/2020 R10.30 Lower abdominal pain, unspecifie d Bienvenido Connolly, P.A. 06/10/2020 J30.89 Other allergic rhinitis Vanessa K. Ring, PA 06/03/2020 J30.89 Other allergic rhinitis Ayla V illanueva, STATE TROOPER 05/27/2020 J30.89 Other allergic rhinitis Vanessa KSanjuana Ring, PA 05/20/2020 J30.89 Other allergic rhinitis Lissette Coronado, PA 05/13/2020 J30.89 Other allergic rhinitis Vanessa K. Ring, PA 05/06/2020 J30.89 Other allergic rhinitis Ayla V illanueva, STATE TROOPER 04/29/2020 J30.89 Other allergic rhinitis Bienvenido Connolly, P.Nafisa. 04/22/2020 J30.89 Other allergic rhinitis Ayla arellano, AHMET Plan of Treatment No Information Available Functional Status Description No Information Available Mental Status Description No Information Available Referrals Description No Information Available
--- NOTE | 2020-12-07 14:00 | REP ---
INDICATION: L flank pain, hx of stones, hematuria. COMPARISON: Multiple, the latest 06/14/2020 a contrast-enhanced exam. The latest noncontrast enhanced exam 03/01/2019 abdomen only TECHNIQUE: Noncontrast enhanced helical technique FINDINGS: The lung bases are clear and unchanged. Hepatic and splenic densities have not changed significantly compared to the prior exam. Limited evaluation of the pancreas, adrenal glands, and kidneys show no significant changes from the prior exam. Multiple simple and hyperdense renal cysts are again seen bilaterally status quo. There is no nephrolithiasis, hydronephrosis, or hydroureter. In the proximal left ureter there is a 5 mm size ureterolith which is not causing obstructive phenomena. Limited evaluation of the abdominal aorta and para-aortic regions show no gross abnormalities or significant changes from the prior exam. There is no free fluid or free air. There is no mass or adenopathy. There is no significant change in appearance of the osseous structures. IMPRESSION: 1. There is a 5 mm sized proximal left ureterolith which is not causing obstructive phenomena. 2. Bilateral renal cysts status quo. 3. Other findings as described above. . <Electronically signed by Francisco Knight > 12/07/20 [id number]
--- OUTSIDE RECORDS SUMMARY | 2020-12-07 14:00 | CCD | Continuity of Care Document ---
Author Author Alonzo NGUYEN PA-C Organization Unknown Address [address] [place] [id number] Phone [phone] Care Team Providers Care Decay Control Operator Name Role Phone Talya Lozano NP AUTM [phone] Ambrose Johnson M.D. AUTM [phone] Problems Active Problems Provider Date Allergic rhinitis [...] Zavala, P.ASanjuana Onset: 01/31/2013 Pure hypercholesterolemia Tyson Alexander DO Onset: 07/03 Essential hypertension Tyson Alexander DO Onset: 07/03/20 11 Allergic rhinitis due to animals Tyson Alexander DO Onset : 06/29/2019 Social History Type [...] inhaled medications as needed 1units R06.00 Tyson Alexander, DO 03/01/2020 Fluticasone Propionate 50mcg/Act Suspension Leroy Two Sprays In Each Nostril Every Day 16units J30.8 9 Tyson Alexander, DO 04/15/2019 J30.1 J30.81 Saline Flush 0.9% Solution irrigate qd-bid prn J30.1 Tyson Alexander, DO 07/03/2011 Cetirizine HCL 10mg Tablets 1qd - take one tablet by mouth every day 90tabs J30.1 Unknown Lisinopril 40mg Tablets 1 Tab PO qd Unknown Singulair 10mg Tablets Take One Tablet By Mouth Every Day 30tabs J30.1 Tyson Alexander, DO J30.[address] One capsule one daily Unknown Famotidine 20mg Tablets 1 by mouth twice a day Unknown Metoprolol Succinate ER 50mg Tablets ER 24HR 1 by mouth every day Unknown /0 000 Atorvastatin Calcium 10mg Tablets One Tablet daily Unknown Ventolin HFA 108(90Base) mcg/Act A erosol inhale 2 puffs by mouth every 4 hours as needed 8gm R06.00 Tyson Alexander, DO Amlodipine Besylate 5mg Tablets Take One [...] Information Available Procedures Date Code Description Status 07/04/2020 91639 Allergy Mixed Antigens Completed Medical Devices Description No Information Available Encounters Description No Information Available Assessments Date Code Description Provider 10/11/2020 J30.1 Allergic rhinitis due to pollen Nichole Nguyen PA-C 10/11/2020 J30.89 Other allergic rhinitis Nichole Nguyen PA-C 10/11/2020 J30.81 Allergic rhinitis due to [...] Future Appointment(s):* 01/10/2021 9:00 am - Tyson Alexander DO at [facility] 10/11/2020 - Nichole Nguyen PA-C* J30.1 Allergic rhinitis due to pollen* Comments:* Continue meds as prescribed. To continue the allergy injections on a weekly schedule. * Follow up:* [address] mckinnon * J30.89 Other allergic rhinitis * J30.81 Allergic rhinitis due to animal (cat) (dog) hair and dander * H10.45 Other chronic allergic conjunctivitis * R06.00 Dyspnea, unspecified * R05 Cough Functional Status Description No Information Available Mental Status Description No Information Available Referrals Description No Information Available
--- OUTSIDE RECORDS SUMMARY | 2020-12-07 14:00 | CCD | Continuity of Care Document ---
Author Author Alonzo CORONADO PA Organization Unknown Address [address] [place] [id number] Phone [phone] Care Team Providers Care Fire Prevention Bureau Captain Name Role Phone Kaci Milan NP AUTM [phone] [facility] AUTM [phone] AUTM [phone] Problems Active Problems Provider Date Allergic rhinitis DENNISE Gimenez Onset: 07/15/20 10 Essential hypertension Imelda Hernandez [place] Onset: 07/15 Hyperlipidemia Imelda Hernandez [facility] Onset: 07/15/20 10 Allergic rhinitis Hector [...] 2 Or More Injection Wilfredo Olguin, MEGAN 08/03/2020 Allergy Injection 2 Or More Injection Ayla Daniel, AHMET 07/29/2020 Allergy Injection 2 Or More Injection Vanessa K. Houston, MEGAN 07/22/2020 Allergy Injection 2 Or More Injection Ayla Sanchez, PIPE BLANKS CUT OFF SAW OPERATOR 07/15/2020 Allergy Injection 2 Or More Injection Vanessa K. Ring, PA 06/24/2020 Allergy Injection 2 Or More Injection Ayla Sanchez, PIPE BLANKS CUT OFF SAW OPERATOR 06/17/2020 Allergy Injection 2 Or More Injection Vanessa K. Ring, PA 06/10/2020 Allergy Injection 2 Or More Injection Ayla Sanchez, PIPE BLANKS CUT OFF SAW OPERATOR 06/03/2020 Allergy Injection 2 Or More Injection Vanessa K. Houston, PA 05/27/2020 Allergy Injection 2 Or More Injection MEGAN Tuttle 05/20/2020 Allergy Injection 2 Or More Injection Vanessa K. Ring, PA 05/13/2020 Allergy Injection 2 Or More Injection Ayla Sanchez, PIPE BLANKS CUT OFF SAW OPERATOR 05/06/2020 Allergy Injection 2 Or More Injection Bienvenidoantonia Connolly, P.A. 04/29/2020 Allergy Injection 2 Or More Injection Ayla Sanchez, PIPE BLANKS CUT OFF SAW OPERATOR 04/22/2020 Allergy Injection 2 Or More Injection Vanessa K. Ring, PA 04/15/2020 Allergy Injection 2 Or More Injection Ayla Sanchez, PIPE BLANKS CUT OFF SAW OPERATOR 04/08/2020 Allergy Injection 2 Or More Injection Vanessa K. Ring, PA 04/01/2020 Allergy Injection 2 Or More Injection Ayla Sanchez, PIPE BLANKS CUT OFF SAW OPERATOR 03/25/2020 Allergy Injection 2 Or More [...] Allergy Injection 2 Or More Injection Malik nSehaiere, PA 01/29/2020 Allergy Injection 2 Or More [...] Injection 2 Or More Injection Ayla Sanchez, PIPE BLANKS CUT OFF SAW OPERATOR 06/27/2019 Allergy Injection 2 Or More [...] 03/22/2018 Allergy Injection 2 Or More Injection [facility] 03/01/2018 Allergy Injection 2 Or More Injection Vanessa K. Ring, PA 02/08/2018 Allergy Injection 2 Or More Injection [facility] 01/18/2018 Allergy Injection 2 Or [...] 2 Or More Injection Imelda Adrien. Hernandez, [facility] 08/09/2012 Allergy Injection 2 Or More [...] Injection 2 Or More Injection Imelda Hernandez, [facility] 05/18/2011 Allergy Injection 2 Or More Injection Porter Thomas, P.A. 05/05/2011 Allergy Injection 2 Or More Injection Porter Tohmas, P.A. 04/22/2011 Allergy Injection 2 Or More [...] Injection 2 Or More Injection Imelda Hernandez, [facility] 07/29/2010 Allergy Injection 2 Or More [...] Available Procedures Date Code Description Status 10/19/2020 47433 Allergy Injection 2 Or More Comp leted 10/12/2020 62833 Allergy Injection 2 Or More Comp leted 10/05/2020 93107 Allergy Injection 2 Or More Comp leted 09/28/2020 22635 Allergy Injection 2 Or More Comp leted 09/21/2020 26894 Allergy Injection 2 Or More Comp leted 08/31/2020 00846 Allergy Injection 2 Or More Comp leted 08/24/2020 54974 Allergy Injection 2 Or More Comp leted 08/17/2020 43594 Allergy Injection 2 Or More Comp leted 08/10/2020 33133 Allergy Injection 2 Or More Comp leted 08/03/2020 59524 Allergy Injection 2 Or More Comp leted 07/29/2020 98706 Allergy Injection 2 Or More Comp leted 07/22/2020 08853 Allergy Injection 2 Or More Comp leted 07/15/2020 70692 Allergy Injection 2 Or More Comp leted 06/24/2020 03638 Allergy Injection 2 Or More Comp leted 06/17/2020 93739 Allergy Injection 2 Or More Comp leted 06/10/2020 84888 Allergy Injection 2 Or More Comp leted 06/03/2020 98589 Allergy Injection 2 Or More Comp leted 05/27/2020 31967 Allergy Injection 2 Or More Comp leted 05/20/2020 45556 Allergy Injection 2 Or More Comp leted 05/13/2020 28118 Allergy Injection 2 Or More Comp leted 05/06/2020 78027 Allergy Injection 2 Or More Comp leted 04/29/2020 20065 Allergy Injection 2 Or More Comp leted 04/22/2020 94694 Allergy Injection 2 Or More Comp leted Medical Devices Description No Information Available Encounters Type Date Location Provider Dx Diagnosis Office Visit 07/23/2020 8:25a Main Office MEGAN Rock J01 .10 Acute frontal sinusitis, unspecified R05 Cough Office Visit 06/14/2020 3:50p Main Office Pamela Max.Vicky R1 0.30 Lower abdominal pain, unspecified Assessments Date Code Description Provider 10/12/2020 J30.89 Other allergic rhinitis MEGAN Rock 10/05/2020 J30.89 Other allergic rhinitis MEGAN Rock 09/28/2020 Z20.828 Contact with and (fox spected) exposure to other viral communicable diseases Wilfredo Olguin, PA 09/21/2020 J30.89 Other allergic rhinitis Wilfredo Olguin, PA 08/31/2020 J30.89 Other allergic rhinitis Wilfredo Olguin, PA 08/31/2020 Z20.828 Contact with and (fox spected) exposure to other viral communicable diseases Wilfredo Olguin, PA 08/24/2020 J30.89 Other allergic rhinitis Wilfredo Olguin, PA 08/17/2020 J30.9 Allergic rhinitis, unspecified M ichaye Nafisa Olguin, PA 08/10/2020 J30.89 Other allergic rhinitis Wilfredo Olguin, PA 08/03/2020 J30.89 Other allergic rhinitis Wilfredo Olguin, PA 07/29/2020 J30.89 Other allergic rhinitis Ayla V illanueva, PIPE BLANKS CUT OFF SAW OPERATOR 07/23/2020 J01.10 Acute frontal sinusitis, unspeci fied Wilfredo Olguin, PA 07/23/2020 R05 Cough Wilfredo ely, PA 07/22/2020 J30.89 Other allergic rhinitis Vanessa Ana Cristina Ring, PA 07/15/2020 J30.89 Other allergic rhinitis Ayla V illanueva, PIPE BLANKS CUT OFF SAW OPERATOR 06/24/2020 J30.89 Other allergic rhinitis Vanessa K. Ring, PA 06/17/2020 J30.89 Other allergic rhinitis Ayla V illanueva, PIPE BLANKS CUT OFF SAW OPERATOR 06/14/2020 R10.30 Lower abdominal pain, unspecifie d Bienvenido Connolly, P.A. 06/10/2020 J30.89 Other allergic rhinitis Vanessa K. Ring, PA 06/03/2020 J30.89 Other allergic rhinitis Ayla V illanueva, PIPE BLANKS CUT OFF SAW OPERATOR 05/27/2020 J30.89 Other allergic rhinitis Vanessa K. Ring, PA 05/20/2020 J30.89 Other allergic rhinitis Lissette Coronado, PA 05/13/2020 J30.89 Other allergic rhinitis Vanessa K. Ring, PA 05/06/2020 J30.89 Other allergic rhinitis Ayla V illanueva, PIPE BLANKS CUT OFF SAW OPERATOR 04/29/2020 J30.89 Other allergic rhinitis Bienvenido Connolly, P.A. 04/22/2020 J30.89 Other allergic rhinitis Ayla V illanueva, PIPE BLANKS CUT OFF SAW OPERATOR Plan of Treatment No Information Available Functional Status Description No Information Available Mental Status Description No Information Available Referrals Description No Information Available
--- OUTSIDE RECORDS SUMMARY | 2020-12-07 14:00 | CCD | Continuity of Care Document ---
Author Author Alonzo OLGUIN PA Organization Unknown Address [address] [place] [id number] Phone [phone] Care Team Providers Care Design Draftsman Name Role Phone Kaci Milan NP AUTM [phone] [facility] AUTM [place] AUTM [phone] Problems Active Problems Provider Date Allergic rhinitis CASSIDY Gimenez Onset: 07/15/20 10 Essential hypertension Imelda Hernandez [facility] Onset: 07/15 Hyperlipidemia Imelda Hernandez [facility] Onset: 07/15/20 10 Allergic rhinitis [...] 10/12/2020 Allergy Injection 2 Or More Injection Wilfredo Olguin, MEGAN 10/05/2020 Allergy Injection 2 Or More Injection [...] Injection 2 Or More Injection Ayla Sanchez, BRAND SALES CONSULTANT 07/29/2020 Allergy Injection 2 Or More Injection Vanessa K. [place], PA 07/22/2020 Allergy Injection 2 Or More Injection Ayla Sanchez, BRAND SALES CONSULTANT 07/15/2020 Allergy Injection 2 Or More Injection Vanessa K. Ring, PA 06/24/2020 Allergy Injection 2 Or More Injection Ayla Sanchez, BRAND SALES CONSULTANT 06/17/2020 Allergy Injection 2 Or More Injection Vanessa K. Ring, PA 06/10/2020 Allergy Injection 2 Or More Injection Ayla Sanchez, BRAND SALES CONSULTANT 06/03/2020 Allergy Injection 2 Or More Injection Vanessa K. Ring, PA 05/27/2020 Allergy Injection 2 Or More Injection Merna Coronado, MEGAN 05/20/2020 Allergy Injection 2 Or More Injection Vanessa K. Ring, PA 05/13/2020 Allergy Injection 2 Or More Injection Ayla Sanchez, BRAND SALES CONSULTANT 05/06/2020 Allergy Injection 2 Or More Injection Bienvenidoantonia Connolly, P.A. 04/29/2020 Allergy Injection 2 Or More Injection Ayla Sanchez, BRAND SALES CONSULTANT 04/22/2020 Allergy Injection 2 Or More Injection Vanessa K. Ring, PA 04/15/2020 Allergy Injection 2 Or More Injection Ayla Sanchez, BRAND SALES CONSULTANT 04/08/2020 Allergy Injection 2 Or More Injection Vanessa K. Ring, PA 04/01/2020 Allergy Injection 2 Or More Injection Ayla Sanchez, BRAND SALES CONSULTANT 03/25/2020 Allergy Injection 2 Or More Injection Bienvenidoantonia Connolly, P.A. 03/18/2020 Allergy Injection 2 Or More Injection Wilfredo Olguin, PA 03/11/2020 Allergy Injection 2 Or More Injection Bienvenido Connolly, P.A. 03/05/2020 Allergy Injection 2 Or More Injection Wilfredo Olguin, PA 02/24/2020 Allergy Injection 2 Or More Injection Malik Lettiere, PA 02/17/2020 Allergy Injection 2 Or More Injection Malik Melye, PA 02/11/2020 Allergy Injection 2 Or More Injection Bienvenido M Mohsen, P.A. 02/05/2020 Allergy Injection 2 Or More Injection Wilfredo Olguin, PA 01/29/2020 Allergy Injection 2 Or More Injection Bienvenido M Mohsen, P.A. 01/23/2020 Allergy Injection 2 Or More Injection Bienvenido M Mohsen, P.A. 12/29/2019 Allergy Injection 2 Or More Injection Wilfredo Olguin, PA 12/23/2019 Allergy Injection 2 Or More Injection Malik Melye, PA 12/16/2019 Allergy Injection 2 Or More Injection Bienvenido M Mohsen, P.A. 12/08/2019 Allergy Injection 2 Or More Injection Malik Melye, PA 12/02/2019 Allergy Injection 2 Or More Injection Malik Snehaiere, PA 11/25/2019 Allergy Injection 2 Or More Injection Malik Snehaiere, PA 11/18/2019 Allergy Injection 2 Or More Injection Malik Melye, PA 11/11/2019 Allergy Injection 2 Or More Injection Bienvenido M Mohsen, P.A. 11/03/2019 Allergy Injection 2 Or More Injection Malik Lettiere, PA 10/28/2019 Allergy Injection 2 Or More Injection Malik Lettiere, PA 10/21/2019 Allergy Injection 2 Or More Injection Malik Lettiere, PA 10/14/2019 Allergy Injection 2 Or More Injection Malki Lettiere, PA 10/09/2019 Allergy Injection 2 Or More Injection Malik Lettiere, PA 09/30/2019 Allergy Injection 2 Or More Injection Malik Lettiere, PA 09/02/2019 Allergy Injection 2 Or More Injection Bienvenidoantonia Connolly, P.A. 08/07/2019 Allergy Injection 2 Or More Injection Bienvenidoantonia Johnstonome, P.A. 07/18/2019 Allergy Injection 2 Or More Injection Ayla Sanchez, BRAND SALES CONSULTANT 06/27/2019 Allergy Injection 2 Or More Injection Vanessa Gen. Ring, PA 06/06/2019 Allergy Injection 2 Or More Injection Vanessa KSanjuana Ring, PA 05/16/2019 Allergy Injection 2 Or More Injection Saranya Riley, PA 04/25/2019 Allergy Injection 2 Or More Injection Vanessa Gen. Ring, PA 04/04/2019 Allergy Injection 2 Or [...] Allergy Injection 2 Or More Injection Bienvenido Giovanni Connolly, P.A. 09/08/2018 Allergy Injection 2 Or [...] 03/22/2018 Allergy Injection 2 Or More Injection [facility] 03/01/2018 Allergy Injection 2 Or More Injection Vanessa K. Ring, PA 02/08/2018 Allergy Injection 2 Or More Injection [facility] 01/18/2018 Allergy Injection 2 Or More Injection Malik Lettiere, PA 12/22/2017 Allergy Injection 2 Or More Injection Malik Lettdoylee, PA 12/01/2017 Allergy Injection 2 Or More [...] 2 Or More Injection Hector Hgaan, P.A. 09/21/2012 Allergy Injection 2 Or More Injection Porter Martha, P.A. 09/01/2012 Allergy Injection 2 Or More Injection Imelda Hernandez, [facility] 08/09/2012 Allergy Injection 2 Or [...] Injection 2 Or More Injection Imelda Hernandez, [facility] 05/18/2011 Allergy Injection 2 Or [...] Injection 2 Or More Injection Imelda Hernandez, [facility] 07/29/2010 Allergy Injection 2 Or [...] Information Available Procedures Date Code Description Status 10/12/2020 75610 Allergy Injection 2 Or More Comp leted 10/05/2020 42804 Allergy Injection 2 Or More Comp leted 09/28/2020 16164 Allergy Injection 2 Or More Comp leted 09/21/2020 32851 Allergy Injection 2 Or More Comp leted 08/31/2020 14268 Allergy Injection 2 Or More Comp leted 08/24/2020 04035 Allergy Injection 2 Or More Comp leted 08/17/2020 57310 Allergy Injection 2 Or More Comp leted 08/10/2020 18669 Allergy Injection 2 Or More Comp leted 08/03/2020 76082 Allergy Injection 2 Or More Comp leted 07/29/2020 16040 Allergy Injection 2 Or More Comp leted 07/22/2020 59134 Allergy Injection 2 Or More Comp leted 07/15/2020 44586 Allergy Injection 2 Or More Comp leted 06/24/2020 60010 Allergy Injection 2 Or More Comp leted 06/17/2020 33814 Allergy Injection 2 Or More Comp leted 06/10/2020 25409 Allergy Injection 2 Or More Comp leted 06/03/2020 43969 Allergy Injection 2 Or More Comp leted 05/27/2020 88026 Allergy Injection 2 Or More Comp leted 05/20/2020 11797 Allergy Injection 2 Or More Comp leted 05/13/2020 45058 Allergy Injection 2 Or More Comp leted 05/06/2020 46591 Allergy Injection 2 Or More Comp leted 04/29/2020 09168 Allergy Injection 2 Or More Comp leted 04/22/2020 58643 Allergy Injection 2 Or More Comp leted 04/15/2020 55672 Allergy Injection 2 Or More Comp leted [...] spected) exposure to other viral communicable diseases MEGAN [facility] 09/21/2020 J30.89 Other allergic rhinitis Wilfredo Olguin, PA 08/31/2020 J30.89 Other allergic rhinitis Wilfredo Olguin, PA 08/31/2020 Z20.828 Contact with and (fox spected) exposure to other viral communicable diseases Wilfredo Olguin, PA 08/24/2020 J30.89 Other allergic rhinitis Wilfredo Olguin, PA 08/17/2020 J30.9 Allergic rhinitis, unspecified M catrina Nafisa Olguin, PA 08/10/2020 J30.89 Other allergic rhinitis Wilfredo Olguin, PA 08/03/2020 J30.89 Other allergic rhinitis Wilfredo Olguin, PA 07/29/2020 J30.89 Other allergic rhinitis Ayla V illanueva, BRAND SALES CONSULTANT 07/23/2020 J01.10 Acute frontal sinusitis, unspeci fied Wilfredo Olguin, PA 07/23/2020 R05 Cough Wilfredo ely, PA 07/22/2020 J30.89 Other allergic rhinitis Vanessa K. Ring, PA 07/15/2020 J30.89 Other allergic rhinitis Ayla V illanueva, BRAND SALES CONSULTANT 06/24/2020 J30.89 Other allergic rhinitis Vanessa K. Ring, PA 06/17/2020 J30.89 Other allergic rhinitis Ayla V illanueva, BRAND SALES CONSULTANT 06/14/2020 R10.30 Lower abdominal pain, unspecifie d Bienvenido Connolly, P.A. 06/10/2020 J30.89 Other allergic rhinitis Vanessa K. Ring, PA 06/03/2020 J30.89 Other allergic rhinitis Ayla V illanueva, BRAND SALES CONSULTANT 05/27/2020 J30.89 Other allergic rhinitis Vanessa K. Ring, PA 05/20/2020 J30.89 Other allergic rhinitis Lissette Coronado, PA 05/13/2020 J30.89 Other allergic rhinitis Vanessa K. Ring, PA 05/06/2020 J30.89 Other allergic rhinitis Ayla V illanueva, BRAND SALES CONSULTANT 04/29/2020 J30.89 Other allergic rhinitis Bienvenido Connolly, P.A. 04/22/2020 J30.89 Other allergic rhinitis Ayla V illanueva, BRAND SALES CONSULTANT 04/15/2020 J30.89 Other allergic rhinitis Vanessa K. Ring, PA Plan of Treatment No Information Available Functional Status Description No Information Available Mental Status Description No Information Available Referrals Description No Information Available
--- OUTSIDE RECORDS SUMMARY | 2020-12-07 14:00 | CCD | Continuity of Care Document ---
Author Author Alonzo AZEVEDO PA Organization Unknown Address [address] [place] [id number] Phone [phone] Care Team Providers Care Proofer Name Role Phone Kaci Milan NP AUTM [phone] [facility] AUTM [place] [facility] AUTM [phone] Problems Active Problems Provider Date Allergic rhinitis CASSIDY Gimenez Onset: 07/15/20 10 Essential hypertension Imelda Hernandez [facility] Onset: 07/15 Hyperlipidemia Imelda Hernandez [facility] Onset: 07/15/20 10 Allergic rhinitis Hector [...] Allergy Injection 2 Or More Injection Wilfredo Azevedo, MEGAN 09/28/2020 Allergy Injection 2 Or More Injection MEGAN Rock 09/21/2020 Allergy Injection 2 Or More Injection Wilfredo Azevedo, MEGAN 08/31/2020 Allergy Injection 2 Or More Injection Wilfredo Azevedo, MEGAN 08/24/2020 Allergy Injection 2 Or More Injection Wilfredo Azevedo, MEGAN 08/17/2020 Allergy Injection 2 Or More Injection Wilfredo Azevedo, MEGAN 08/10/2020 Allergy Injection 2 Or More Injection Wilfredo Azevedo, MEGAN 08/03/2020 Allergy Injection 2 Or More Injection Ayla Sanchez, ROLLER LEVELER 07/29/2020 Allergy Injection 2 Or More Injection Vanessa K. Ring, PA 07/22/2020 Allergy Injection 2 Or More Injection Ayla Sanchez, ROLLER LEVELER 07/15/2020 Allergy Injection 2 Or More Injection Vanessa K. Ring, PA 06/24/2020 Allergy Injection 2 Or More Injection Ayla Sanchez, ROLLER LEVELER 06/17/2020 Allergy Injection 2 Or More Injection Vanessa K. Ring, PA 06/10/2020 Allergy Injection 2 Or More Injection Ayla Sanchez, ROLLER LEVELER 06/03/2020 Allergy Injection 2 Or More Injection Vanessa K. Ring, PA 05/27/2020 Allergy Injection 2 Or More Injection Merna Coronado, PA 05/20/2020 Allergy Injection 2 Or More Injection Vanessa K. Ring, PA 05/13/2020 Allergy Injection 2 Or More Injection Ayla Sanchez, ROLLER LEVELER 05/06/2020 Allergy Injection 2 Or More Injection Bienvenido Connolly, P.A. 04/29/2020 Allergy Injection 2 Or More Injection Ayla Daniel, ROLLER LEVELER 04/22/2020 Allergy Injection 2 Or More Injection Vanessa Gen. Ring, PA 04/15/2020 Allergy Injection 2 Or More Injection Ayla Sanchez, ROLLER LEVELER 04/08/2020 Allergy Injection 2 Or More Injection Vanessa Gen. Ring, PA 04/01/2020 Allergy Injection 2 Or More Injection Ayla Daniel, ROLLER LEVELER 03/25/2020 Allergy Injection 2 Or More Injection Bienvenidoantonia Connolly, P.A. 03/18/2020 Allergy Injection 2 Or More Injection Wilfredo Azevedo, PA 03/11/2020 Allergy Injection 2 Or More Injection Bienvenidoantonia Connolly, P.A. 03/05/2020 Allergy Injection 2 Or More Injection Wilfredo Azevedo, PA 02/24/2020 Allergy Injection 2 Or More Injection Wilfredo Azevedo, PA 02/17/2020 Allergy Injection 2 Or More Injection Wilfredo Azevedo, PA 02/11/2020 Allergy Injection 2 Or More Injection Bienvenido M Mohsen, P.A. 02/05/2020 Allergy Injection 2 Or More Injection MalikNafisa Azevedo, PA 01/29/2020 Allergy Injection 2 Or More Injection Bienvenido M Mohsen, P.A. 01/23/2020 Allergy Injection 2 Or More Injection Bienvenido M Mohsen, P.A. 12/29/2019 Allergy Injection 2 Or More Injection Wilfredo Azevedo, PA 12/23/2019 Allergy Injection 2 Or More Injection Wilfredo Azevedo, PA 12/16/2019 Allergy Injection 2 Or More Injection Bienvenido M Mohsen, P.A. 12/08/2019 Allergy Injection 2 Or More Injection Malik Snehaiere, PA 12/02/2019 Allergy Injection 2 Or More Injection Malik Melye, PA 11/25/2019 Allergy Injection 2 Or More Injection Malik Melye, PA 11/18/2019 Allergy Injection 2 Or More Injection Malik Snehaiere, PA 11/11/2019 Allergy Injection 2 Or More Injection Bienvenido M Mohsen, P.A. 11/03/2019 Allergy Injection 2 Or More Injection Wilfredo Azevedo, PA 10/28/2019 Allergy Injection 2 Or More [...] Injection 2 Or More Injection Ayla Sanchez, ROLLER LEVELER 06/27/2019 Allergy Injection 2 Or More Injection Vanessa K. Ring, PA 06/06/2019 Allergy Injection 2 Or [...] 03/22/2018 Allergy Injection 2 Or More Injection [facility] 03/01/2018 Allergy Injection 2 Or More Injection Vanessa K. Ring, PA 02/08/2018 Allergy Injection 2 Or More Injection [facility] 01/18/2018 Allergy Injection 2 Or [...] Injection 2 Or More Injection Imelda Hernandez, [facility] 08/09/2012 Allergy Injection 2 Or More [...] Injection 2 Or More Injection Imelda Hernandez, [facility] 05/18/2011 Allergy Injection 2 Or More [...] Injection 2 Or More Injection Imelda Hernandez, [facility] 07/29/2010 Allergy Injection 2 Or More [...] Information Available Procedures Date Code Description Status 10/05/2020 56683 Allergy Injection 2 Or More Comp leted 09/28/2020 91533 Allergy Injection 2 Or More Comp leted 09/21/2020 27989 Allergy Injection 2 Or More Comp leted 08/31/2020 06076 Allergy Injection 2 Or More Comp leted 08/24/2020 75781 Allergy Injection 2 Or More Comp leted 08/17/2020 29264 Allergy Injection 2 Or More Comp leted 08/10/2020 50812 Allergy Injection 2 Or More Comp leted 08/03/2020 17687 Allergy Injection 2 Or More Comp leted 07/29/2020 65246 Allergy Injection 2 Or More Comp leted 07/22/2020 36495 Allergy Injection 2 Or More Comp leted 07/15/2020 97182 Allergy Injection 2 Or More Comp leted 06/24/2020 72507 Allergy Injection 2 Or More Comp leted 06/17/2020 91646 Allergy Injection 2 Or More Comp leted 06/10/2020 62609 Allergy Injection 2 Or More Comp leted 06/03/2020 97416 Allergy Injection 2 Or More Comp leted 05/27/2020 64098 Allergy Injection 2 Or More Comp leted 05/20/2020 27326 Allergy Injection 2 Or More Comp leted 05/13/2020 11400 Allergy Injection 2 Or More Comp leted 05/06/2020 77459 Allergy Injection 2 Or More Comp leted 04/29/2020 39936 Allergy Injection 2 Or More Comp leted 04/22/2020 50945 Allergy Injection 2 Or More Comp leted 04/15/2020 16681 Allergy Injection 2 Or More Comp leted 04/08/2020 62840 Allergy Injection 2 Or More Comp leted Medical Devices Description No Information Available Encounters Type Date Location Provider Dx Diagnosis Office Visit 07/23/2020 8:25a Main Office MEGAN Rock J01 .10 Acute frontal sinusitis, unspecified R05 Cough Office Visit 06/14/2020 3:50p Main Office Kaylee Max R1 0.30 Lower abdominal pain, unspecified Assessments Date Code Description Provider 10/05/2020 J30.89 Other allergic rhinitis MEGAN Rock 09/28/2020 Z20.828 Contact with and (fox spected) exposure to other viral communicable diseases MEGAN Rock 09/21/2020 J30.89 Other allergic rhinitis MEGAN Rock 08/31/2020 J30.89 Other allergic rhinitis Wilfredo Azevedo PA 08/31/2020 Z20.828 Contact with and (fox spected) exposure to other viral communicable diseases Wilfredo Azevedo, PA 08/24/2020 J30.89 Other allergic rhinitis Wilfredo Azevedo, PA 08/17/2020 J30.9 Allergic rhinitis, unspecified M catrina Nafisa Azevedo, PA 08/10/2020 J30.89 Other allergic rhinitis Wilfredo Azevedo, PA 08/03/2020 J30.89 Other allergic rhinitis Wilfredo Azevedo, PA 07/29/2020 J30.89 Other allergic rhinitis Ayla V illanueva, ROLLER LEVELER 07/23/2020 J01.10 Acute frontal sinusitis, unspeci fied Wilfredo Azevedo, PA 07/23/2020 R05 Cough Wilfredo ely, PA 07/22/2020 J30.89 Other allergic rhinitis Vanessa K. Ring, PA 07/15/2020 J30.89 Other allergic rhinitis Ayla V illanueva, ROLLER LEVELER 06/24/2020 J30.89 Other allergic rhinitis Vanessa K. Ring, PA 06/17/2020 J30.89 Other allergic rhinitis Ayla V illanueva, ROLLER LEVELER 06/14/2020 R10.30 Lower abdominal pain, unspecifie d Bienvenido Connolly, P.A. 06/10/2020 J30.89 Other allergic rhinitis Vanessa K. Ring, PA 06/03/2020 J30.89 Other allergic rhinitis Ayla V illanueva, ROLLER LEVELER 05/27/2020 J30.89 Other allergic rhinitis Vanessa K. Ring, PA 05/20/2020 J30.89 Other allergic rhinitis Lissette Coronado, PA 05/13/2020 J30.89 Other allergic rhinitis Vanessa K. Ring, PA 05/06/2020 J30.89 Other allergic rhinitis Ayla V illanueva, ROLLER LEVELER 04/29/2020 J30.89 Other allergic rhinitis Bienvenido Connolly, P.A. 04/22/2020 J30.89 Other allergic rhinitis Ayla V illanueva, ROLLER LEVELER 04/15/2020 J30.89 Other allergic rhinitis Vanessa K. Ring, PA 04/08/2020 J30.89 Other allergic rhinitis Ayla V illanueva, ROLLER LEVELER Plan of Treatment No Information Available Functional Status Description No Information Available Mental Status Description No Information Available Referrals Description No Information Available
--- OUTSIDE RECORDS SUMMARY | 2020-12-07 14:00 | CCD | Continuity of Care Document ---
Author Author Alonzo OLGUIN PA Organization Unknown Address [address] [place] [phone] Phone [phone] Care Team Providers Care Supervisor Winter Name Role Phone Kaci Milan NP AUTM [phone] [facility] AUTM [phone] [place] [employer] AUTM [phone] Problems Active Problems Provider Date Allergic rhinitis CASSIDY Gimneez Onset: 07/15/20 10 Essential hypertension Imelda Hernandez [facility] Onset: 07/15 Hyperlipidemia Imelda Hernandez [facility] Onset: 07/15/20 10 Allergic rhinitis Hector Hagan, [...] Injection 2 Or More Injection Ayla Sanchez, VISUAL EDUCATION DIRECTOR 07/29/2020 Allergy Injection 2 Or More Injection Vanessa K. [place], PA 07/22/2020 Allergy Injection 2 Or More Injection Ayla Sanchez, VISUAL EDUCATION DIRECTOR 07/15/2020 Allergy Injection 2 Or More Injection Vanessa K. Ring, PA 06/24/2020 Allergy Injection 2 Or More Injection Ayla Sanchez, VISUAL EDUCATION DIRECTOR 06/17/2020 Allergy Injection 2 Or More Injection Vanessa K. Ring, PA 06/10/2020 Allergy Injection 2 Or More Injection Ayla Sanchez, VISUAL EDUCATION DIRECTOR 06/03/2020 Allergy Injection 2 Or More Injection Vanessa K. Ring, PA 05/27/2020 Allergy Injection 2 Or More Injection Merna Coronado, MEGAN 05/20/2020 Allergy Injection 2 Or More Injection Vanessa K. Ring, PA 05/13/2020 Allergy Injection 2 Or More Injection Ayla Sanchez, VISUAL EDUCATION DIRECTOR 05/06/2020 Allergy Injection 2 Or More Injection Bienvenidoantonia Connolly, P.A. 04/29/2020 Allergy Injection 2 Or More Injection Ayla Sanchez, VISUAL EDUCATION DIRECTOR 04/22/2020 Allergy Injection 2 Or More Injection Vanessa K. Ring, PA 04/15/2020 Allergy Injection 2 Or More Injection Ayla Sanchez, VISUAL EDUCATION DIRECTOR 04/08/2020 Allergy Injection 2 Or More Injection Vanessa K. Ring, PA 04/01/2020 Allergy Injection 2 Or More Injection Ayla Sanchez, VISUAL EDUCATION DIRECTOR 03/25/2020 Allergy Injection 2 Or More Injection [...] Injection 2 Or More Injection Ayla Sanchez, VISUAL EDUCATION DIRECTOR 06/27/2019 Allergy Injection 2 Or More Injection [...] Allergy Injection 2 Or More Injection Bienvenidoantonia Cononlly, P.A. 01/12/2019 Allergy Injection 2 Or More [...] 03/22/2018 Allergy Injection 2 Or More Injection [facility] 03/01/2018 Allergy Injection 2 Or More Injection Vanessa K. Ring, PA 02/08/2018 Allergy Injection 2 Or More Injection [facility] 01/18/2018 Allergy Injection 2 Or [...] Injection 2 Or More Injection Imelda Hernandez, [facility] 08/09/2012 Allergy Injection 2 Or More Injection [...] Injection 2 Or More Injection Imelda Hernandez, [facility] 05/18/2011 Allergy Injection 2 Or More Injection [...] Injection 2 Or More Injection Imelda Hernandez, [facility] 07/29/2010 Allergy Injection 2 Or More Injection [...] 06/04/2010 Allergy Injection 2 Or More Injection Hectro Hagan, P.A. 05/28/2010 Allergy Injection 2 Or [...] Available Procedures Date Code Description Status 10/12/2020 34976 Allergy Injection 2 Or More Comp leted 10/05/2020 04365 Allergy Injection 2 Or More Comp leted 09/28/2020 52096 Allergy Injection 2 Or More Comp leted 09/21/2020 75940 Allergy Injection 2 Or More Comp leted 08/31/2020 82185 Allergy Injection 2 Or More Comp leted 08/24/2020 82552 Allergy Injection 2 Or More Comp leted 08/17/2020 26737 Allergy Injection 2 Or More Comp leted 08/10/2020 40876 Allergy Injection 2 Or More Comp leted 08/03/2020 37507 Allergy Injection 2 Or More Comp leted 07/29/2020 97517 Allergy Injection 2 Or More Comp leted 07/22/2020 75243 Allergy Injection 2 Or More Comp leted 07/15/2020 70729 Allergy Injection 2 Or More Comp leted 06/24/2020 89110 Allergy Injection 2 Or More Comp leted 06/17/2020 59476 Allergy Injection 2 Or More Comp leted 06/10/2020 24290 Allergy Injection 2 Or More Comp leted 06/03/2020 08004 Allergy Injection 2 Or More Comp leted 05/27/2020 62226 Allergy Injection 2 Or More Comp leted 05/20/2020 67978 Allergy Injection 2 Or More Comp leted 05/13/2020 84063 Allergy Injection 2 Or More Comp leted 05/06/2020 45744 Allergy Injection 2 Or More Comp leted 04/29/2020 87080 Allergy Injection 2 Or More Comp leted 04/22/2020 71966 Allergy Injection 2 Or More Comp leted 04/15/2020 46724 Allergy Injection 2 Or More Comp leted [...] MEGAN [facility] 08/31/2020 J30.89 Other allergic rhinitis Malik Sharif, [...] J30.89 Other allergic rhinitis Ayla V illanueva, VISUAL EDUCATION DIRECTOR 07/23/2020 J01.10 Acute frontal sinusitis, unspeci fied Wilfredo Olguin, PA 07/23/2020 R05 Cough Wilfredo ely, PA 07/22/2020 J30.89 Other allergic rhinitis Vanessa K. Ring, PA 07/15/2020 J30.89 Other allergic rhinitis Ayla V illanueva, VISUAL EDUCATION DIRECTOR 06/24/2020 J30.89 Other allergic rhinitis Vanessa K. Ring, PA 06/17/2020 J30.89 Other allergic rhinitis Ayla V illanueva, VISUAL EDUCATION DIRECTOR 06/14/2020 R10.30 Lower abdominal pain, unspecifie d Bienvenido Connolly, P.A. 06/10/2020 J30.89 Other allergic rhinitis Vanessa K. Ring, PA 06/03/2020 J30.89 Other allergic rhinitis Ayla V illanueva, VISUAL EDUCATION DIRECTOR 05/27/2020 J30.89 Other allergic rhinitis Vanessa K. Ring, PA 05/20/2020 J30.89 Other allergic rhinitis Lissette Coronado, PA 05/13/2020 J30.89 Other allergic rhinitis Vanessa K. Ring, PA 05/06/2020 J30.89 Other allergic rhinitis Ayla V illanueva, VISUAL EDUCATION DIRECTOR 04/29/2020 J30.89 Other allergic rhinitis Bienvenido Connolly, P.A. 04/22/2020 J30.89 Other allergic rhinitis Ayla V illanueva, VISUAL EDUCATION DIRECTOR 04/15/2020 J30.89 Other allergic rhinitis Vanessa K. [place], PA Plan of Treatment No Information Available Functional Status Description No Information Available Mental Status Description No Information Available Referrals Description No Information Available
--- OUTSIDE RECORDS SUMMARY | 2020-12-07 14:01 | CCD | Continuity of Care Document ---
Author Author Alonzo OLGUIN PA Organization Unknown Address [address] [place] [address] Phone [phone] Care Team Providers Care Footwear Machinery Instructor Name Role Phone Kaci Milan NP AUTM [phone] [facility] AUTM [place] AUTM [phone] Problems Active Problems Provider Date Allergic rhinitis CASSIDY Gimenez Onset: 07/15/20 10 Essential hypertension Imelda Hernandez [facility] Onset: 07/15 Hyperlipidemia Imelda Hernandez [facility] Onset: 07/15/20 10 Allergic rhinitis Hector Hagan, [...] 09/28/2020 Allergy Injection 2 Or More Injection Wilfreod Olguin, MEGAN 09/21/2020 Allergy Injection 2 Or More Injection MEGAN Rock 08/31/2020 Allergy Injection 2 Or More Injection Wilfredo Olguin, MEGAN 08/24/2020 Allergy Injection 2 Or More Injection Wilfredo Olguin, MEGAN 08/17/2020 Allergy Injection 2 Or More Injection Wilfredo Olguin, MEGAN 08/10/2020 Allergy Injection 2 Or More Injection Wilfredo Olguin, MEGAN 08/03/2020 Allergy Injection 2 Or More Injection Ayla Daniel, AGRONOMY RESEARCH MANAGER 07/29/2020 Allergy Injection 2 Or More Injection Vanessa K. Houston, PA 07/22/2020 Allergy Injection 2 Or More Injection Ayla Sanchez, AGRONOMY RESEARCH MANAGER 07/15/2020 Allergy Injection 2 Or More Injection Vanessa K. Ring, PA 06/24/2020 Allergy Injection 2 Or More Injection Ayla Sanchez, AGRONOMY RESEARCH MANAGER 06/17/2020 Allergy Injection 2 Or More Injection Vanessa K. Ring, PA 06/10/2020 Allergy Injection 2 Or More Injection Ayla Sanchez, AGRONOMY RESEARCH MANAGER 06/03/2020 Allergy Injection 2 Or More Injection Vanessa K. Ring, PA 05/27/2020 Allergy Injection 2 Or More Injection Merna Coronado, PA 05/20/2020 Allergy Injection 2 Or More Injection Vanessa K. Ring, PA 05/13/2020 Allergy Injection 2 Or More Injection Ayla Sanchez, AGRONOMY RESEARCH MANAGER 05/06/2020 Allergy Injection 2 Or More Injection Kaylee Max 04/29/2020 Allergy Injection 2 Or More Injection Ayla Daniel, AGRONOMY RESEARCH MANAGER 04/22/2020 Allergy Injection 2 Or More Injection Vanessa K. Ring, PA 04/15/2020 Allergy Injection 2 Or More Injection Ayla Sanchez, AGRONOMY RESEARCH MANAGER 04/08/2020 Allergy Injection 2 Or More Injection Vanessa Ana Cristina Ring, PA 04/01/2020 Allergy Injection 2 Or More Injection Ayla Daniel, AGRONOMY RESEARCH MANAGER 03/25/2020 Allergy Injection 2 Or More Injection Bienvenido Connolly, P.A. 03/18/2020 Allergy Injection 2 Or More Injection Wilfredo Olguin, PA 03/11/2020 Allergy Injection 2 Or More Injection Bienvenido Connolly, P.A. 03/05/2020 Allergy Injection 2 Or More Injection Malik Melye, PA 02/24/2020 Allergy Injection 2 Or More Injection Malik Melye, PA 02/17/2020 Allergy Injection 2 Or More Injection Wilfredo Olguin, PA 02/11/2020 Allergy Injection 2 Or More [...] Injection 2 Or More Injection Ayla Sanchez, AGRONOMY RESEARCH MANAGER 06/27/2019 Allergy Injection 2 Or More Injection [...] 03/22/2018 Allergy Injection 2 Or More Injection [facility] 03/01/2018 Allergy Injection 2 Or More Injection Vanessa K. Ring, PA 02/08/2018 Allergy Injection 2 Or More Injection [facility] 01/18/2018 Allergy Injection 2 Or [...] Injection 2 Or More Injection Imelda Hernandez, [facility] 08/09/2012 Allergy Injection 2 Or More Injection Porter Thomas, P.A. 07/22/2012 Allergy Injection 2 Or More Injection Porter Martha, P.A. 06/28/2012 Allergy Injection 2 Or More Injection Porter Thomas, P.A. 06/07/2012 Allergy Injection 2 Or More Injection Porter Thomas, P.A. 05/17/2012 Allergy Injection 2 Or More Injection Porter Thomas, P.A. 04/26/2012 Allergy Injection 2 Or More Injection Porter Thomas, P.A. 04/05/2012 Allergy Injection 2 Or More Injection Poretr Thomas, P.A. 03/15/2012 Allergy Injection 2 Or [...] Injection 2 Or More Injection Imelda Hernandez, [facility] 05/18/2011 Allergy Injection 2 Or More Injection [...] Injection 2 Or More Injection Imelda Hernandez, [facility] 07/29/2010 Allergy Injection 2 Or More Injection [...] Information Available Procedures Date Code Description Status 09/28/2020 31059 Allergy Injection 2 Or More Comp leted 09/21/2020 35795 Allergy Injection 2 Or More Comp leted 08/31/2020 29093 Allergy Injection 2 Or More Comp leted 08/24/2020 98527 Allergy Injection 2 Or More Comp leted 08/17/2020 73787 Allergy Injection 2 Or More Comp leted 08/10/2020 52858 Allergy Injection 2 Or More Comp leted 08/03/2020 16106 Allergy Injection 2 Or More Comp leted 07/29/2020 05097 Allergy Injection 2 Or More Comp leted 07/22/2020 02775 Allergy Injection 2 Or More Comp leted 07/15/2020 86076 Allergy Injection 2 Or More Comp leted 06/24/2020 36185 Allergy Injection 2 Or More Comp leted 06/17/2020 18007 Allergy Injection 2 Or More Comp leted 06/10/2020 92910 Allergy Injection 2 Or More Comp leted 06/03/2020 29688 Allergy Injection 2 Or More Comp leted 05/27/2020 39019 Allergy Injection 2 Or More Comp leted 05/20/2020 48355 Allergy Injection 2 Or More Comp leted 05/13/2020 38906 Allergy Injection 2 Or More Comp leted 05/06/2020 20178 Allergy Injection 2 Or More Comp leted 04/29/2020 61582 Allergy Injection 2 Or More Comp leted 04/22/2020 66217 Allergy Injection 2 Or More Comp leted 04/15/2020 02914 Allergy Injection 2 Or More Comp leted 04/08/2020 97820 Allergy Injection 2 Or More Comp leted 04/01/2020 63720 Allergy Injection 2 Or More Comp leted Medical Devices Description No Information Available Encounters Type Date Location Provider Dx Diagnosis Office Visit 07/23/2020 8:25a Main Office MEGAN Rock J01 .10 Acute frontal sinusitis, unspecified R05 Cough Office Visit 06/14/2020 3:50p Main Office Kaylee Max R1 0.30 Lower abdominal pain, unspecified Assessments Date Code Description Provider 09/28/2020 Z20.828 Contact with and (fox spected) exposure to other viral communicable diseases MEGAN Rock 09/21/2020 J30.89 Other allergic rhinitis MEGAN Rock 08/31/2020 J30.89 Other allergic rhinitis MEGAN Rock 08/31/2020 Z20.828 Contact with and (fox spected) exposure to other viral communicable diseases MEGAN Rock 08/24/2020 J30.89 Other allergic rhinitis Wilfredo Skelton Sharif, PA 08/17/2020 J30.9 Allergic rhinitis, unspecified M catrina Skelton Sharif, PA 08/10/2020 J30.89 Other allergic rhinitis Wilfredo Skelton Sharif, PA 08/03/2020 J30.89 Other allergic rhinitis Wilfredo Skelton Sharif, PA 07/29/2020 J30.89 Other allergic rhinitis Ayla V illanueva, AGRONOMY RESEARCH MANAGER 07/23/2020 J01.10 Acute frontal sinusitis, unspeci fied Malik Sharif, PA 07/23/2020 R05 Cough Wilfredo ely, PA 07/22/2020 J30.89 Other allergic rhinitis Vanessa K. Ring, PA 07/15/2020 J30.89 Other allergic rhinitis Ayla V illanueva, AGRONOMY RESEARCH MANAGER 06/24/2020 J30.89 Other allergic rhinitis Vanessa K. Ring, PA 06/17/2020 J30.89 Other allergic rhinitis Ayla V illanueva, AGRONOMY RESEARCH MANAGER 06/14/2020 R10.30 Lower abdominal pain, unspecifie d Bienvenido Connolly, P.A. 06/10/2020 J30.89 Other allergic rhinitis Vanessa K. Ring, PA 06/03/2020 J30.89 Other allergic rhinitis Ayla V illanueva, AGRONOMY RESEARCH MANAGER 05/27/2020 J30.89 Other allergic rhinitis Vanessa K. Ring, PA 05/20/2020 J30.89 Other allergic rhinitis Lissette Coronado, PA 05/13/2020 J30.89 Other allergic rhinitis Vanessa K. Ring, PA 05/06/2020 J30.89 Other allergic rhinitis Ayla V illanueva, AGRONOMY RESEARCH MANAGER 04/29/2020 J30.89 Other allergic rhinitis Bienvenido Connolly, P.A. 04/22/2020 J30.89 Other allergic rhinitis Ayla V illanueva, AGRONOMY RESEARCH MANAGER 04/15/2020 J30.89 Other allergic rhinitis Vanessa K. Ring, PA 04/08/2020 J30.89 Other allergic rhinitis Ayla V illanueva, AGRONOMY RESEARCH MANAGER 04/01/2020 J30.89 Other allergic rhinitis Vanessa K. Ring, PA Plan of Treatment No Information Available Functional Status Description No Information Available Mental Status Description No Information Available Referrals Description No Information Available
--- OUTSIDE RECORDS SUMMARY | 2020-12-07 14:01 | CCD | Continuity of Care Document ---
Author Author Alonzo OLGUIN PA Organization Unknown Address [address] [place] [id number] Phone [phone] Care Team Providers Care Parking Lot Spotter Name Role Phone Kaci Milan NP AUTM [phone] [facility] AUTM [phone] [place] AUTM [phone] Problems Active Problems Provider Date Allergic rhinitis CASSIDY Gimenez Onset: 07/15/20 10 Essential hypertension Imelda Hernandez [facility] Onset: 07/15 Hyperlipidemia Imelda Hernandez [facility] Onset: 07/15/20 10 Allergic rhinitis Hector Hagan, [...] 09/28/2020 Allergy Injection 2 Or More Injection Wilfredo Olguin, MEGAN 09/21/2020 Allergy Injection 2 Or More Injection MEGAN Rock 08/31/2020 Allergy Injection 2 Or More Injection Wilfredo Olguin, MEGAN 08/24/2020 Allergy Injection 2 Or More Injection Wilfredo Olguin, MEGAN 08/17/2020 Allergy Injection 2 Or More Injection Wilfredo Olguin, MEGAN 08/10/2020 Allergy Injection 2 Or More Injection Wilfredo Olguin, MEGAN 08/03/2020 Allergy Injection 2 Or More Injection Ayla Daniel, STOCK HANGER 07/29/2020 Allergy Injection 2 Or More Injection Vanessa K. Houston, PA 07/22/2020 Allergy Injection 2 Or More Injection Ayla Sanchez, STOCK HANGER 07/15/2020 Allergy Injection 2 Or More Injection Vanessa K. Ring, PA 06/24/2020 Allergy Injection 2 Or More Injection Ayla Sanchez, STOCK HANGER 06/17/2020 Allergy Injection 2 Or More Injection Vanessa K. Ring, PA 06/10/2020 Allergy Injection 2 Or More Injection Ayla Sanchez, STOCK HANGER 06/03/2020 Allergy Injection 2 Or More Injection Vanessa K. Ring, PA 05/27/2020 Allergy Injection 2 Or More Injection Merna Coronado, PA 05/20/2020 Allergy Injection 2 Or More Injection Vanessa K. Ring, PA 05/13/2020 Allergy Injection 2 Or More Injection Ayla Sanchez, STOCK HANGER 05/06/2020 Allergy Injection 2 Or More Injection Kaylee Max 04/29/2020 Allergy Injection 2 Or More Injection Ayla Daniel, STOCK HANGER 04/22/2020 Allergy Injection 2 Or More Injection Vanessa K. Ring, PA 04/15/2020 Allergy Injection 2 Or More Injection Ayla Sanchez, STOCK HANGER 04/08/2020 Allergy Injection 2 Or More Injection Vanessa Ana Cristina Ring, PA 04/01/2020 Allergy Injection 2 Or More Injection Ayla Daniel, STOCK HANGER 03/25/2020 Allergy Injection 2 Or More Injection [...] Injection 2 Or More Injection Ayla Sanchez, STOCK HANGER 06/27/2019 Allergy Injection 2 Or More Injection [...] 03/22/2018 Allergy Injection 2 Or More Injection [facility] 03/01/2018 Allergy Injection 2 Or More Injection Vanessa K. Ring, PA 02/08/2018 Allergy Injection 2 Or More Injection [facility] 01/18/2018 Allergy Injection 2 Or [...] Injection 2 Or More Injection Imelda Hernandez, [facility] 08/09/2012 Allergy Injection 2 Or More Injection [...] Injection 2 Or More Injection Imelda Hernandez, [facility] 05/18/2011 Allergy Injection 2 Or More Injection [...] Injection 2 Or More Injection Imelda Hernandez, [facility] 07/29/2010 Allergy Injection 2 Or More Injection [...] Available Procedures Date Code Description Status 09/28/2020 85169 Allergy Injection 2 Or More Comp leted 09/21/2020 60319 Allergy Injection 2 Or More Comp leted 08/31/2020 06363 Allergy Injection 2 Or More Comp leted 08/24/2020 41585 Allergy Injection 2 Or More Comp leted 08/17/2020 38011 Allergy Injection 2 Or More Comp leted 08/10/2020 16395 Allergy Injection 2 Or More Comp leted 08/03/2020 20755 Allergy Injection 2 Or More Comp leted 07/29/2020 43893 Allergy Injection 2 Or More Comp leted 07/22/2020 96109 Allergy Injection 2 Or More Comp leted 07/15/2020 70218 Allergy Injection 2 Or More Comp leted 06/24/2020 65566 Allergy Injection 2 Or More Comp leted 06/17/2020 07827 Allergy Injection 2 Or More Comp leted 06/10/2020 12427 Allergy Injection 2 Or More Comp leted 06/03/2020 52205 Allergy Injection 2 Or More Comp leted 05/27/2020 39398 Allergy Injection 2 Or More Comp leted 05/20/2020 78386 Allergy Injection 2 Or More Comp leted 05/13/2020 82060 Allergy Injection 2 Or More Comp leted 05/06/2020 74850 Allergy Injection 2 Or More Comp leted 04/29/2020 22243 Allergy Injection 2 Or More Comp leted 04/22/2020 43733 Allergy Injection 2 Or More Comp leted 04/15/2020 90950 Allergy Injection 2 Or More Comp leted 04/08/2020 95572 Allergy Injection 2 Or More Comp leted 04/01/2020 94723 Allergy Injection 2 Or More Comp leted Medical Devices Description No Information Available Encounters Type Date Location Provider Dx Diagnosis Office Visit 07/23/2020 8:25a Main Office MEGAN Rock J01 .10 Acute frontal sinusitis, unspecified R05 Cough Office Visit 06/14/2020 3:50p Main Office Pamela Max.Vicky R1 0.30 Lower abdominal pain, unspecified Assessments Date Code Description Provider 09/21/2020 J30.89 Other allergic rhinitis MEGAN Rock 08/31/2020 J30.89 Other allergic rhinitis MEGAN Rock 08/31/2020 Z20.828 Contact with and (fox spected) exposure to other viral communicable diseases MEGAN Rock 08/24/2020 J30.89 Other allergic rhinitis MEGAN Rock 08/17/2020 J30.9 Allergic rhinitis, unspecified Giovanni fritz A Sharif, PA 08/10/2020 J30.89 Other allergic rhinitis Wilfredo Olguin, PA 08/03/2020 J30.89 Other allergic rhinitis Malik Melye, PA 07/29/2020 J30.89 Other allergic rhinitis Ayla V illanueva, STOCK HANGER 07/23/2020 J01.10 Acute frontal sinusitis, unspeci fied Wilfredo Olguin, PA 07/23/2020 R05 Cough Wilfredo ely, PA 07/22/2020 J30.89 Other allergic rhinitis Vanessa K. Ring, PA 07/15/2020 J30.89 Other allergic rhinitis Ayla V illanueva, STOCK HANGER 06/24/2020 J30.89 Other allergic rhinitis Vanessa K. Ring, PA 06/17/2020 J30.89 Other allergic rhinitis Ayla V illanueva, STOCK HANGER 06/14/2020 R10.30 Lower abdominal pain, unspecifie d Bienvenido Connolly, P.A. 06/10/2020 J30.89 Other allergic rhinitis Vanessa K. Ring, PA 06/03/2020 J30.89 Other allergic rhinitis Ayla V illanueva, STOCK HANGER 05/27/2020 J30.89 Other allergic rhinitis Vanessa K. Ring, PA 05/20/2020 J30.89 Other allergic rhinitis Lissette Coronado, PA 05/13/2020 J30.89 Other allergic rhinitis Vanessa K. Ring, PA 05/06/2020 J30.89 Other allergic rhinitis Ayla V illanueva, STOCK HANGER 04/29/2020 J30.89 Other allergic rhinitis Bienvenido Connolly, P.A. 04/22/2020 J30.89 Other allergic rhinitis Ayla V illanueva, STOCK HANGER 04/15/2020 J30.89 Other allergic rhinitis Vanessa K. Ring, PA 04/08/2020 J30.89 Other allergic rhinitis Ayla V illanueva, STOCK HANGER 04/01/2020 J30.89 Other allergic rhinitis Vanessa K. Ring, PA Plan of Treatment No Information Available Functional Status Description No Information Available Mental Status Description No Information Available Referrals Description No Information Available
--- OUTSIDE RECORDS SUMMARY | 2020-12-07 14:01 | CCD | Continuity of Care Document ---
Author Author Alonzo AZEVEDO PA Organization Unknown Address [address] [place] [id number] Phone [phone] Care Team Providers Care Nutrition Representative Name Role Phone Kaci Milan NP AUTM [phone] [place] AUTM [place] AUTM [phone] Problems Active Problems Provider Date Allergic rhinitis CASSIDY Gimenez Onset: 07/15/20 10 Essential hypertension Imelda Hernandez [facility] Onset: 07/15 Hyperlipidemia Imelda Hernandez [facility] Onset: 07/15/20 10 Allergic rhinitis [...] Injection 2 Or More Injection Ayla Sanchez, TILE HELPER 07/29/2020 Allergy Injection 2 Or More Injection Vanessa K. Ring, PA 07/22/2020 Allergy Injection 2 Or More Injection Ayla Sanchez, TILE HELPER 07/15/2020 Allergy Injection 2 Or More Injection Vanessa K. Ring, PA 06/24/2020 Allergy Injection 2 Or More Injection Ayla Sanchez, TILE HELPER 06/17/2020 Allergy Injection 2 Or More Injection Vanessa K. Ring, PA 06/10/2020 Allergy Injection 2 Or More Injection Ayla Sanchez, TILE HELPER 06/03/2020 Allergy Injection 2 Or More Injection Vanessa K. Ring, PA 05/27/2020 Allergy Injection 2 Or More Injection Merna Coronado, PA 05/20/2020 Allergy Injection 2 Or More Injection Vanessa K. Ring, PA 05/13/2020 Allergy Injection 2 Or More Injection Ayla Sanchez, TILE HELPER 05/06/2020 Allergy Injection 2 Or More Injection Bienvenido Connolly, P.A. 04/29/2020 Allergy Injection 2 Or More Injection Ayla Daniel, TILE HELPER 04/22/2020 Allergy Injection 2 Or More Injection Vanessa Gen. Ring, PA 04/15/2020 Allergy Injection 2 Or More Injection Ayla Sanchez, TILE HELPER 04/08/2020 Allergy Injection 2 Or More Injection Vanessa Gen. Ring, PA 04/01/2020 Allergy Injection 2 Or More Injection Ayla Daniel, TILE HELPER 03/25/2020 Allergy Injection 2 Or More Injection [...] Injection 2 Or More Injection Ayla Sanchez, TILE HELPER 06/27/2019 Allergy Injection 2 Or More Injection [...] 03/22/2018 Allergy Injection 2 Or More Injection [facility] 03/01/2018 Allergy Injection 2 Or More Injection Vanessa K. Ring, PA 02/08/2018 Allergy Injection 2 Or More Injection [facility] 01/18/2018 Allergy Injection 2 Or [...] Injection 2 Or More Injection Imelda Hernandez, [facility] 08/09/2012 Allergy Injection 2 Or [...] Injection 2 Or More Injection Imelda Hernandez, [facility] 05/18/2011 Allergy Injection 2 Or [...] Injection 2 Or More Injection Imelda Hernandez, [facility] 07/29/2010 Allergy Injection 2 Or [...] Available Procedures Date Code Description Status 10/05/2020 70691 Allergy Injection 2 Or More Comp leted 09/28/2020 90806 Allergy Injection 2 Or More Comp leted 09/21/2020 44940 Allergy Injection 2 Or More Comp leted 08/31/2020 89024 Allergy Injection 2 Or More Comp leted 08/24/2020 20194 Allergy Injection 2 Or More Comp leted 08/17/2020 83027 Allergy Injection 2 Or More Comp leted 08/10/2020 29057 Allergy Injection 2 Or More Comp leted 08/03/2020 59314 Allergy Injection 2 Or More Comp leted 07/29/2020 15157 Allergy Injection 2 Or More Comp leted 07/22/2020 34166 Allergy Injection 2 Or More Comp leted 07/15/2020 34572 Allergy Injection 2 Or More Comp leted 06/24/2020 34134 Allergy Injection 2 Or More Comp leted 06/17/2020 31584 Allergy Injection 2 Or More Comp leted 06/10/2020 88929 Allergy Injection 2 Or More Comp leted 06/03/2020 11493 Allergy Injection 2 Or More Comp leted 05/27/2020 72121 Allergy Injection 2 Or More Comp leted 05/20/2020 17757 Allergy Injection 2 Or More Comp leted 05/13/2020 37834 Allergy Injection 2 Or More Comp leted 05/06/2020 39473 Allergy Injection 2 Or More Comp leted 04/29/2020 12124 Allergy Injection 2 Or More Comp leted 04/22/2020 79418 Allergy Injection 2 Or More Comp leted 04/15/2020 16544 Allergy Injection 2 Or More Comp leted 04/08/2020 45088 Allergy Injection 2 Or More Comp leted [...] J30.89 Other allergic rhinitis Ayla V illanueva, TILE HELPER 07/23/2020 J01.10 Acute frontal sinusitis, unspeci fied Wilfredo Azevedo, PA 07/23/2020 R05 Cough Wilfreod ely, PA 07/22/2020 J30.89 Other allergic rhinitis Vanessa K. Ring, PA 07/15/2020 J30.89 Other allergic rhinitis Ayla V illanueva, TILE HELPER 06/24/2020 J30.89 Other allergic rhinitis Vanessa K. Ring, PA 06/17/2020 J30.89 Other allergic rhinitis Ayla V illanueva, TILE HELPER 06/14/2020 R10.30 Lower abdominal pain, unspecifie d Bienvenido Connolly, P.A. 06/10/2020 J30.89 Other allergic rhinitis Vanessa K. Ring, PA 06/03/2020 J30.89 Other allergic rhinitis Ayla V illanueva, TILE HELPER 05/27/2020 J30.89 Other allergic rhinitis Vanessa K. Ring, PA 05/20/2020 J30.89 Other allergic rhinitis Lissette Coronado, PA 05/13/2020 J30.89 Other allergic rhinitis Vanessa K. Ring, PA 05/06/2020 J30.89 Other allergic rhinitis Ayla V illanueva, TILE HELPER 04/29/2020 J30.89 Other allergic rhinitis Bienvenido Connolly, P.A. 04/22/2020 J30.89 Other allergic rhinitis Ayla V illanueva, TILE HELPER 04/15/2020 J30.89 Other allergic rhinitis Vanessa K. Ring, PA 04/08/2020 J30.89 Other allergic rhinitis Ayla V illanueva, TILE HELPER Plan of Treatment No Information Available Functional Status Description No Information Available Mental Status Description No Information Available Referrals Description No Information Available
--- OUTSIDE RECORDS SUMMARY | 2020-12-07 14:02 | CCD | Continuity of Care Document ---
Author Author Alonzo OLGUIN PA Organization Unknown Address [address] [place] [id number] Phone [phone] Care Team Providers Care Laborer [employer] Name Role Phone Kaci Milan NP AUTM [phone] [facility] AUTM [phone] [employer] AUTM [phone] Problems Active Problems Provider Date Allergic rhinitis DENNISE Gimenez Onset: 07/15/20 10 Essential hypertension Imelda Hernandez [facility] Onset: 07/[address] [facility] Onset: 07/15/20 10 Allergic rhinitis Hector [...] Injection 2 Or More Injection Ayla Sanchez, [employer] 07/29/2020 Allergy Injection 2 Or More Injection Vanessa K. Ring, PA 07/22/2020 Allergy Injection 2 Or More Injection Ayla Sanchez, W[employer] 07/15/2020 Allergy Injection 2 Or More Injection Vanessa K. Ring, PA 06/24/2020 Allergy Injection 2 Or More Injection Ayla Sanchez, W[employer] 06/17/2020 Allergy Injection 2 Or More Injection Vanessa K. Ring, PA 06/10/2020 Allergy Injection 2 Or More Injection Ayla Sanchez, [employer] 06/03/2020 Allergy Injection 2 Or More Injection Vanessa K. Ring, PA 05/27/2020 Allergy Injection 2 Or More Injection Merna Coronado, PA 05/20/2020 Allergy Injection 2 Or More Injection Vanessa K. Ring, PA 05/13/2020 Allergy Injection 2 Or More Injection Ayla Sanchez, [employer] 05/06/2020 Allergy Injection 2 Or More Injection Bienvenido Connolly PCharles 04/29/2020 Allergy Injection 2 Or More Injection Ayla Sanchez, W[employer] 04/22/2020 Allergy Injection 2 Or More Injection Vanessa Gen. Ring, PA 04/15/2020 Allergy Injection 2 Or More Injection Ayla Sanchez, W[employer] 04/08/2020 Allergy Injection 2 Or More Injection Vanessa K. Ring, PA 04/01/2020 Allergy Injection 2 Or More Injection Ayla Sanchez, W[employer] 03/25/2020 Allergy Injection 2 Or More Injection Bienvenido Connolly, P.A. 03/18/2020 Allergy Injection 2 Or More Injection Wilfredo Olguin, PA 03/11/2020 Allergy Injection 2 Or More Injection Bienvenido Connolly, P.A. 03/05/2020 Allergy Injection 2 Or More Injection Wilfredo Olguin, PA 02/24/2020 Allergy Injection 2 Or More Injection Wilfredo Boonee, PA 02/17/2020 Allergy Injection 2 Or More Injection Wilfredo Boone[place], PA 02/11/2020 Allergy Injection 2 Or More Injection Bienvenido Connolly, P.A. 02/05/2020 Allergy Injection 2 Or More Injection Wilfredo Olguin, PA 01/29/2020 Allergy Injection 2 Or More Injection Bienvenido Connolly, P.A. 01/23/2020 Allergy Injection 2 Or More Injection Bienvenido Connolly, P.A. 12/29/2019 Allergy Injection 2 Or More Injection Wilfredo Olguin, PA 12/23/2019 Allergy Injection 2 Or More Injection Wilfredo [place], PA 12/16/2019 Allergy Injection 2 Or More Injection Bienvenido Connolly, P.A. 12/08/2019 Allergy Injection 2 Or More Injection Wilfredo [place], PA 12/02/2019 Allergy Injection 2 Or More Injection Malik Snehaiere, PA 11/25/2019 Allergy Injection 2 Or More Injection Malik Melye, PA 11/18/2019 Allergy Injection 2 Or More Injection Malik Melye, PA 11/11/2019 Allergy Injection 2 Or More Injection Bienvenido Connolly, P.A. 11/03/2019 Allergy Injection 2 Or More Injection Wilfredo Boone[place], PA 10/28/2019 Allergy Injection 2 Or More Injection Wilfredo [place], PA 10/21/2019 Allergy Injection 2 Or More Injection Malik Melye, PA 10/14/2019 Allergy Injection 2 Or More Injection Wilfredo Olguin, PA 10/09/2019 Allergy Injection 2 Or More Injection Malik Lettiere, PA 09/30/2019 Allergy Injection 2 Or More Injection Malik Lettiere, PA 09/02/2019 Allergy Injection 2 Or More Injection Bienvenido Connolly, P.A. 08/07/2019 Allergy Injection 2 Or More Injection Bienvenido Connolly, P.A. 07/18/2019 Allergy Injection 2 Or More Injection Ayla Sanchez, W[employer] 06/27/2019 Allergy Injection 2 Or More Injection Vanessa K. Ring, PA 06/06/2019 Allergy Injection 2 Or More Injection Vanessa K. Ring, PA 05/16/2019 Allergy Injection 2 Or More Injection Saranya Bonifacio Riley, PA 04/25/2019 Allergy Injection 2 Or [...] 03/22/2018 Allergy Injection 2 Or More Injection [facility] 03/01/2018 Allergy Injection 2 Or More Injection Vanessa Gen. [place], PA 02/08/2018 Allergy Injection 2 Or More Injection [facility] 01/18/2018 Allergy Injection 2 Or More Injection Malik Snehaiere, PA 12/22/2017 Allergy Injection 2 Or More Injection Malik Lettiere, PA 12/01/2017 Allergy Injection 2 Or More Injection Bienvenido Connolly, P.A. 11/04/2017 Allergy Injection 2 Or More Injection Malik Lettiere, PA 10/13/2017 Allergy Injection 2 Or More Injection Malik Lettiere, PA 09/22/2017 Allergy Injection 2 Or More Injection Malik Lettiere, PA 09/01/2017 Allergy Injection 2 Or More Injection Vanessa K. [place], PA 08/10/2017 Allergy Injection 2 Or More Injection Bienvenido Connolly, P.A. 07/15/2017 Allergy Injection 2 Or More Injection Vanessa Gen. [place], PA 06/22/2017 Allergy Injection 2 Or More Injection Vanessa Ana Cristina Conrad, PA 06/01/2017 Allergy Injection 2 Or More [...] Allergy Injection 2 Or More Injection Hector aHgan, P.A. 09/21/2012 Allergy Injection 2 Or More Injection Porter Martha, P.A. 09/01/2012 Allergy Injection 2 Or More Injection Imelda Hernandez, [facility] 08/09/2012 Allergy Injection 2 Or More Injection Porter Thomas, P.A. 07/22/2012 Allergy Injection 2 Or More Injection Porter Martha, P.A. 06/28/2012 Allergy Injection 2 Or More Injection Porter Martha, P.A. 06/07/2012 Allergy Injection 2 Or More [...] Injection 2 Or More Injection Imelda Hernandez, [facility] 05/18/2011 Allergy Injection 2 Or More [...] Injection 2 Or More Injection Imelda Hernandez, [facility] 07/29/2010 Allergy Injection 2 Or More [...] Information Available Procedures Date Code Description Status 09/21/2020 68566 Allergy Injection 2 Or More Comp leted 08/31/2020 73285 Allergy Injection 2 Or More Comp leted 08/24/2020 41493 Allergy Injection 2 Or More Comp leted 08/17/2020 21731 Allergy Injection 2 Or More Comp leted 08/10/2020 63930 Allergy Injection 2 Or More Comp leted 08/03/2020 13139 Allergy Injection 2 Or More Comp leted 07/29/2020 64386 Allergy Injection 2 Or More Comp leted 07/22/2020 28186 Allergy Injection 2 Or More Comp leted 07/15/2020 85094 Allergy Injection 2 Or More Comp leted 06/24/2020 29975 Allergy Injection 2 Or More Comp leted 06/17/2020 30722 Allergy Injection 2 Or More Comp leted 06/10/2020 42579 Allergy Injection 2 Or More Comp leted 06/03/2020 60329 Allergy Injection 2 Or More Comp leted 05/27/2020 15747 Allergy Injection 2 Or More Comp leted 05/20/2020 27509 Allergy Injection 2 Or More Comp leted 05/13/2020 12883 Allergy Injection 2 Or More Comp leted 05/06/2020 74543 Allergy Injection 2 Or More Comp leted 04/29/2020 87706 Allergy Injection 2 Or More Comp leted 04/22/2020 14038 Allergy Injection 2 Or More Comp leted 04/15/2020 76688 Allergy Injection 2 Or More Comp leted 04/08/2020 08314 Allergy Injection 2 Or More Comp leted 04/01/2020 50589 Allergy Injection 2 Or More Comp leted 03/25/2020 15182 Allergy Injection 2 Or More Comp leted Medical Devices Description No Information Available Encounters Type Date Location Provider Dx Diagnosis Office Visit 07/23/2020 8:25a Main Office MEGAN Rock J01 .10 Acute frontal sinusitis, unspecified R05 Cough Office Visit 06/14/2020 3:50p Main Office Pamela Max.Vicky R1 0.30 Lower abdominal pain, unspecified Assessments Date Code Description Provider 08/31/2020 J30.89 Other allergic rhinitis MEGAN Rock 08/31/2020 Z20.828 Contact with and (fox spected) exposure to other viral communicable diseases MEGAN Rock 08/24/2020 J30.89 Other allergic rhinitis MEGAN Rock 08/17/2020 J30.9 Allergic rhinitis, unspecified M MEGAN Day 08/10/2020 J30.89 Other allergic rhinitis MEGAN Rock 08/03/2020 J30.89 Other allergic rhinitis Wilfredo Olguin, PA 07/29/2020 J30.89 Other allergic rhinitis Ayla V illanueva, [employer] 07/23/2020 J01.10 Acute frontal sinusitis, unspeci fied Wilfredo Olguin, PA 07/23/2020 R05 Cough Wilfredo ely, PA 07/22/2020 J30.89 Other allergic rhinitis Vanessa K. Ring, PA 07/15/2020 J30.89 Other allergic rhinitis Ayla V illanueva, [employer] 06/24/2020 J30.89 Other allergic rhinitis Vanessa K. Ring, PA 06/17/2020 J30.89 Other allergic rhinitis Ayla V illanueva, W[employer] 06/14/2020 R10.30 Lower abdominal pain, unspecifie d Bienvenido Connolly, P.A. 06/10/2020 J30.89 Other allergic rhinitis Vanessa K. Ring, PA 06/03/2020 J30.89 Other allergic rhinitis Ayla V illanueva, [employer] 05/27/2020 J30.89 Other allergic rhinitis Vanessa K. Ring, PA 05/20/2020 J30.89 Other allergic rhinitis Lissette Coronado, PA 05/13/2020 J30.89 Other allergic rhinitis Vanessa K. Ring, PA 05/06/2020 J30.89 Other allergic rhinitis Ayla V illanueva, [employer] 04/29/2020 J30.89 Other allergic rhinitis Bienvenido Connolly, P.A. 04/22/2020 J30.89 Other allergic rhinitis Ayla V illanueva, [employer] 04/15/2020 J30.89 Other allergic rhinitis Vanessa K. Ring, PA 04/08/2020 J30.89 Other allergic rhinitis Ayla V illanueva, W[employer] 04/01/2020 J30.89 Other allergic rhinitis Vanessa K. Ring, PA 03/25/2020 J30.89 Other allergic rhinitis Ayla V illanueva, W[employer] Plan of Treatment No Information Available Functional Status Description No Information Available Mental Status Description No Information Available Referrals Description No Information Available
--- OUTSIDE RECORDS SUMMARY | 2020-12-07 14:02 | CCD | Continuity of Care Document ---
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 Onset: 2009 Acute suppurative otitis media without spontaneous rup ture of ear drum Hector Hgaan, P.A. Onset: 01/26/2011 Social History Type Date [...] Injection 2 Or More Injection Ayla Sanchez, [employer] 07/29/2020 Allergy Injection 2 Or More Injection Vanessa K. Ring, PA 07/22/2020 Allergy Injection 2 Or More Injection Ayla Sanchez, [employer] 07/15/2020 Allergy Injection 2 Or More Injection Vanessa K. Ring, PA 06/24/2020 Allergy Injection 2 Or More Injection Ayla Sanchez, [employer] 06/17/2020 Allergy Injection 2 Or More Injection Vanessa K. Ring, PA 06/10/2020 Allergy Injection 2 Or More Injection Ayla Sanchez, [employer] 06/03/2020 Allergy Injection 2 Or More Injection Vanessa K. Ring, PA 05/27/2020 Allergy Injection 2 Or More Injection Merna Coronado, PA 05/20/2020 Allergy Injection 2 Or More Injection Vanessa K. Ring, PA 05/13/2020 Allergy Injection 2 Or More Injection Ayla Sanchez, [employer] 05/06/2020 Allergy Injection 2 Or More Injection Bienvenido Connolly PCharles 04/29/2020 Allergy Injection 2 Or More Injection Ayla Sanchez, [employer] 04/22/2020 Allergy Injection 2 Or More Injection Vanessa Gen. Ring, PA 04/15/2020 Allergy Injection 2 Or More Injection Ayla Sanchez, [employer] 04/08/2020 Allergy Injection 2 Or More Injection Vanessa K. Ring, PA 04/01/2020 Allergy Injection 2 Or More Injection Ayla Sanchez, [employer] 03/25/2020 Allergy Injection 2 Or More Injection [...] Injection 2 Or More Injection Ayla Sanchez, [employer] 06/27/2019 Allergy Injection 2 Or More Injection [...] 03/22/2018 Allergy Injection 2 Or More Injection [facility] 03/01/2018 Allergy Injection 2 Or More Injection Vanessa Gen. [place], PA 02/08/2018 Allergy Injection 2 Or More Injection [facility] 01/18/2018 Allergy Injection 2 Or [...] Injection 2 Or More Injection Imelda Hernandez, [facility] 08/09/2012 Allergy Injection 2 Or [...] Injection 2 Or More Injection Imelda Hernandez, [facility] 05/18/2011 Allergy Injection 2 Or [...] Injection 2 Or More Injection Imelda Hernandez, [facility] 07/29/2010 Allergy Injection 2 Or [...] Available Procedures Date Code Description Status 09/21/2020 95500 Allergy Injection 2 Or More Comp leted 08/31/2020 03729 Allergy Injection 2 Or More Comp leted 08/24/2020 26563 Allergy Injection 2 Or More Comp leted 08/17/2020 69685 Allergy Injection 2 Or More Comp leted 08/10/2020 74053 Allergy Injection 2 Or More Comp leted 08/03/2020 09699 Allergy Injection 2 Or More Comp leted 07/29/2020 35734 Allergy Injection 2 Or More Comp leted 07/22/2020 99195 Allergy Injection 2 Or More Comp leted 07/15/2020 64875 Allergy Injection 2 Or More Comp leted 06/24/2020 68497 Allergy Injection 2 Or More Comp leted 06/17/2020 40597 Allergy Injection 2 Or More Comp leted 06/10/2020 61488 Allergy Injection 2 Or More Comp leted 06/03/2020 93857 Allergy Injection 2 Or More Comp leted 05/27/2020 83118 Allergy Injection 2 Or More Comp leted 05/20/2020 72139 Allergy Injection 2 Or More Comp leted 05/13/2020 30285 Allergy Injection 2 Or More Comp leted 05/06/2020 86316 Allergy Injection 2 Or More Comp leted 04/29/2020 82899 Allergy Injection 2 Or More Comp leted 04/22/2020 47443 Allergy Injection 2 Or More Comp leted 04/15/2020 47870 Allergy Injection 2 Or More Comp leted 04/08/2020 54362 Allergy Injection 2 Or More Comp leted 04/01/2020 79808 Allergy Injection 2 Or More Comp leted 03/25/2020 33535 Allergy Injection 2 Or More Comp leted [...] MEGAN Day 08/10/2020 J30.89 Other allergic rhinitis Wilfredo Olguin, PA 08/03/2020 J30.89 Other allergic rhinitis Malik Melye, PA 07/29/2020 J30.89 Other allergic rhinitis Ayla V illanueva, [employer] 07/23/2020 J01.10 Acute frontal sinusitis, unspeci fied Wilfredo Olguin, PA 07/23/2020 R05 Cough Wilfredo ely, PA 07/22/2020 J30.89 Other allergic rhinitis Vanessa K. Ring, PA 07/15/2020 J30.89 Other allergic rhinitis Ayla V illanueva, [employer] 06/24/2020 J30.89 Other allergic rhinitis Vanessa K. Ring, PA 06/17/2020 J30.89 Other allergic rhinitis Ayla V illanueva, [employer] 06/14/2020 R10.30 Lower abdominal pain, unspecifie d Bienvenido Connolly, P.A. 06/10/2020 J30.89 Other allergic rhinitis Vanessa K. Ring, PA 06/03/2020 J30.89 Other allergic rhinitis Ayla V illanueva, [employer] 05/27/2020 J30.89 Other allergic rhinitis Vanessa K. Ring, PA 05/20/2020 J30.89 Other allergic rhinitis Lissette Coronado, PA 05/13/2020 J30.89 Other allergic rhinitis Vanessa K. Ring, PA 05/06/2020 J30.89 Other allergic rhinitis Ayla V illanueva, [employer] 04/29/2020 J30.89 Other allergic rhinitis Bienvenido Connolly, P.A. 04/22/2020 J30.89 Other allergic rhinitis Ayla V illanueva, [employer] 04/15/2020 J30.89 Other allergic rhinitis Vanessa K. Ring, PA 04/08/2020 J30.89 Other allergic rhinitis Ayla V illanueva, [employer] 04/01/2020 J30.89 Other allergic rhinitis Vanessa K. Ring, PA 03/25/2020 J30.89 Other allergic rhinitis Ayla V illanueva, [employer] Plan of Treatment No Information Available Functional Status Description No Information Available Mental Status Description No Information Available Referrals Description No Information Available
--- OUTSIDE RECORDS SUMMARY | 2020-12-07 14:03 | CCD ---
Author Author [facility] Organization [facility] Address Unknown Phone Unavailable Care Team Providers Care Tele Tech Name Role Phone Elissa Suero MD Unavailable Unavailable Elissa Suero MD Unavailable Unavailable Elissa Suero MD Unavailable Unavailable Elissa Suero MD Unavailable Unavailable Elissa Suero MD Unavailable Unavailable Elissa Suero MD Unavailable Unavailable Elissa Suero MD Unavailable Unavailable Elissa uSero MD Unavailable Unavailable Elissa Suero MD Unavailable Unavailable Eilssa Suero MD Unavailable Unavailable Elissa Suero MD Unavailable Unavailable Elissa Suero MD Unavailable Unavailable Elissa Suero MD Unavailable Unavailable Elissa Suero MD Unavailable Unavailable Elissa Suero MD Unavailable Unavailable Vaneenenaam, Elissa Angelo MD Unavailable Unavailable Vaneenenaam, Elissa Angelo MD Unavailable Unavailable Vaneenenaam, Elissa Angelo MD Unavailable Unavailable Vaneenenaam, Elissa Angelo MD Unavailable Unavailable Vaneenenaam, Elissa Angelo MD Unavailable Unavailable Vaneenenaam, Elissa Angelo MD Unavailable Unavailable Vaneenenaam, Elissa Angelo MD Unavailable Unavailable Vaneenenaam, Elissa Angelo MD Unavailable Unavailable Vaneenenaam, Elissa Angelo MD Unavailable Unavailable Vaneenenaam, Elissa Angelo MD Unavailable Unavailable Vaneenenaam, Elissa Angelo MD Unavailable Unavailable Vaneenenaam, Elissa Angelo MD Unavailable Unavailable Vaneenenaam, Elissa Angelo MD Unavailable Unavailable Vaneendevinam, Elissa Angelo MD Unavailable Unavailable Vaneenenaam, Elissa Angelo MD Unavailable Unavailable Vaneendevinam, Elissa Angelo MD Unavailable Unavailable Vaneendevinam, Elissa Angelo MD Unavailable Unavailable Vaneendevinam, Elissa Angelo MD Unavailable Unavailable Vaneendevinam, Elissa Angelo MD Unavailable Unavailable Vantonja, Elissa Angelo MD Unavailable Unavailable Vantonja, Elissa Angelo MD Unavailable Unavailable Vaneenyessenia, Elissa Angelo MD Unavailable Unavailable Vaneenyessenia, Elissa Angelo MD Unavailable Unavailable Vaneenyessenia, Elissa Angelo MD Unavailable Unavailable Vaneendevinam, Elissa Angelo MD Unavailable Unavailable Vaneenyessenia, Elissa Angelo MD Unavailable Unavailable Vantonja, Elissa Angelo MD Unavailable Unavailable Pio, Elissa Angelo MD Unavailable Unavailable Vanamparoam, Elissa Angelo MD Unavailable Unavailable Dille, E Raysa DDS Unavailable Unavailable Dille, E Raysa DDS Unavailable Unavailable Dille, E Raysa DDS Unavailable Unavailable Dille, E Raysa DDS Unavailable Unavailable VIANEY, ENA PA Unavailable Unavailable VIANEY, ENA PA Unavailable Unavailable VIANEY, ENA PA Unavailable Unavailable VIANEY, ENA PA Unavailable Unavailable VIANEY, ENA PA Unavailable Unavailable VIANEY, ENA PA Unavailable Unavailable VIANEY, ENA PA Unavailable Unavailable VIANEY, ENA PA Unavailable Unavailable VIANEY, ENA PA Unavailable Unavailable VIANEY, ENA PA Unavailable Unavailable VIANEY, ENA PA Unavailable Unavailable VIANEY, ENA PA Unavailable Unavailable VIANEY, ENA PA Unavailable Unavailable VIANEY, ENA PA Unavailable Unavailable VIANEY, ENA PA Unavailable Unavailable VIANEY, ENA PA Unavailable Unavailable VIANEY, ENA PA Unavailable Unavailable VIANEY, ENA PA Unavailable Unavailable VIANEY, ENA PA Unavailable Unavailable VIANEY, ENA PA Unavailable Unavailable VIANEY, ENA PA Unavailable Unavailable VIANEY, ENA PA Unavailable Unavailable VIANEY, ENA PA Unavailable Unavailable VIANEY, ENA PA Unavailable Unavailable VIANEY, ENA PA Unavailable Unavailable VIANEY, ENA PA Unavailable Unavailable VIANEY, ENA PA Unavailable Unavailable VIANEY, ENA PA Unavailable Unavailable VIANEY, ENA PA Unavailable Unavailable VIANEY, ENA PA Unavailable Unavailable VIANEY, ENA PA Unavailable Unavailable VIANEY, ENA PA Unavailable Unavailable VIANEY, ENA PA Unavailable Unavailable VIANEY, ENA PA Unavailable Unavailable VIANEY, ENA PA Unavailable Unavailable VIANEY, ENA PA Unavailable Unavailable VIANEY, ENA PA Unavailable Unavailable VIANEY, ENA PA Unavailable Unavailable Sanchez, Ayla DYNAMICS AX CONSULTANT Unavailable Unavailable Sanchez, Ayla DYNAMICS AX CONSULTANT Unavailable Unavailable Sanchez, Ayla DYNAMICS AX CONSULTANT Unavailable Unavailable Sanchez, Ayla DYNAMICS AX CONSULTANT Unavailable Unavailable Sanchez, Ayla DYNAMICS AX CONSULTANT Unavailable Unavailable Sanchez, Ayla DYNAMICS AX CONSULTANT Unavailable Unavailable Sanchez, Ayla DYNAMICS AX CONSULTANT Unavailable Unavailable Sanchez, Ayla DYNAMICS AX CONSULTANT Unavailable Unavailable Sanchez, Ayla DYNAMICS AX CONSULTANT Unavailable Unavailable Sanchez, Ayla DYNAMICS AX CONSULTANT Unavailable Unavailable Sanchez, Ayla DYNAMICS AX CONSULTANT Unavailable Unavailable Fransico, L Sujata DYNAMICS AX CONSULTANT Unavailable Unavailable Fransico, L Sujata DYNAMICS AX CONSULTANT Unavailable Unavailable Fransico, L Sujata DYNAMICS AX CONSULTANT Unavailable Unavailable Fransico, L Sujata DYNAMICS AX CONSULTANT Unavailable Unavailable Fransico, L Sujata DYNAMICS AX CONSULTANT Unavailable Unavailable Fransico, L Sujata DYNAMICS AX CONSULTANT Unavailable Unavailable Fransico, L Sujata DYNAMICS AX CONSULTANT Unavailable Unavailable Fransico, L Sujata DYNAMICS AX CONSULTANT Unavailable Unavailable Fransico, L Sujata DYNAMICS AX CONSULTANT Unavailable Unavailable Fransico, L Sujata DYNAMICS AX CONSULTANT Unavailable Unavailable Fransico, L Sujata DYNAMICS AX CONSULTANT Unavailable Unavailable Fransico, L Sujata DYNAMICS AX CONSULTANT Unavailable Unavailable Fransico, L Sujata DYNAMICS AX CONSULTANT Unavailable Unavailable Fransico, L Sujata DYNAMICS AX CONSULTANT Unavailable Unavailable Fransico, L Sujata DYNAMICS AX CONSULTANT Unavailable Unavailable Fransico, L Sujata DYNAMICS AX CONSULTANT Unavailable Unavailable Fransico, L Sujata DYNAMICS AX CONSULTANT Unavailable Unavailable Fransico, L Sujata DYNAMICS AX CONSULTANT Unavailable Unavailable Fransico, L Sujata DYNAMICS AX CONSULTANT Unavailable Unavailable Fransico, L Sujata DYNAMICS AX CONSULTANT Unavailable Unavailable Fransico, L Sujata DYNAMICS AX CONSULTANT Unavailable Unavailable Fransico, L Sujata DYNAMICS AX CONSULTANT Unavailable Unavailable Nafisa AZEVEDO PA Unavailable Unavailable Nafisa AZEVEDO PA Unavailable Unavailable LETTIERE, A KANDACE PA Unavailable Unavailable LETTIERE, A KANDACE PA Unavailable Unavailable LETTIERE, A KANDACE PA Unavailable Unavailable LETTIERE, A KANDACE PA Unavailable Unavailable LETTIERE, A KANDACE PA Unavailable Unavailable LETTIERE, A KANDACE PA Unavailable Unavailable LETTIERE, A KANDACE PA Unavailable Unavailable LETTIERE, A KANDACE PA Unavailable Unavailable LETTIERE, A KANDACE PA Unavailable Unavailable LETTIERE, A KANDACE PA Unavailable Unavailable LETTIERE, A KANDACE PA Unavailable Unavailable LETTIERE, A KANDACE PA Unavailable Unavailable LETTIERE, A KANDACE PA Unavailable Unavailable LETTIERE, A KANDACE PA Unavailable Unavailable LETTIERE, A KANDACE PA Unavailable Unavailable LETTIERE, A KANDACE PA Unavailable Unavailable LETTIERE, A KANDACE PA Unavailable Unavailable LETTIERE, A KANDACE PA Unavailable Unavailable LETTIERE, A KANDACE PA Unavailable Unavailable LETTIERE, A KANDACE PA Unavailable Unavailable LETTIERE, A KANDACE PA Unavailable Unavailable LETTIERE, A KANDACE PA Unavailable Unavailable LETTIERE, A KANDACE PA Unavailable Unavailable LETTIERE, A KANDACE PA Unavailable Unavailable LETTIERE, A KANDACE PA Unavailable Unavailable LETTIERE, A KANDACE PA Unavailable Unavailable LETTIERE, A KANDACE PA Unavailable Unavailable Re-disclosure Warning The records that you are about to access may contain information from federally-assisted alcohol or drug abuse programs. If such information is present, then the following federally mandated warning applies: This information has been disclosed to you from records protected by federal confidentiality rules (42 CFR part 2). The federal rules prohibit you from making any further disclosure of this information unless further disclosure is expressly permitted by the written consent of the person to whom it pertains or as otherwise permitted by 42 CFR part 2. A general authorization for the release of medical or other information is NOT sufficient for this purpose. The Federal rules restrict any use of the information to criminally investigate or prosecute any alcohol or drug abuse patient.The records that you are about to access may contain highly sensitive health information, the redisclosure of which is protected by Article 27-F of the [place] State Public Health law. If you continue you may have access to information: Regarding HIV / AIDS; Provided by facilities licensed or operated by the [facility] Office of Mental Health; or Provided by the [facility] Office for People With Developmental Disabilities. If such information is present, then the following [facility] mandated warning applies: This information has been disclosed to you from confidential records which are protected by state law. State law prohibits you from making any further disclosure of this information without the specific written consent of the person to whom it pertains, or as otherwise permitted by law. Any unauthorized further disclosure in violation of state law may result in a fine or long-term sentence or both. A general authorization for the release of medical or other information is NOT sufficient authorization for further disc losure. Family History Family Member Name Family Member Gender Family Member Status Date o f Status Description Data Source(s) Unknown Male Problem [facility] ([facility] () Unknown Male Problem [facility] ([facility]) Unknown Male Problem [facility] ([facility]) Unknown Male Problem [facility] ([facility] () Unknown Female Problem [facility] ([facility] Unknown Female Problem [facility] ([facility]) Unknown Unknown Problem [facility] ([facility] Encounters Encounter Providers Location Date Indications Data Source(s ) Outpatient Attender: KANDACE braun 07/23/2020 08:25:00 AM EDT [facility] ([facility]) Outpatient Attender: ENA gomes 06/14/2020 03:50:00 PM EDT [facility] ([facility]) Outpatient Attender: Raysa Ames DDS [facility] 06/13/2020 10:15:00 A M EDT [facility] Outpatient Attender: Raysa Ames DDS [facility] 04/12/2020 08:50:00 A M EDT [facility] Outpatient Attender: Raysa mAes DDS [facility] 03/19/2020 10:57:01 A M EDT [facility] Outpatient Attender: Raysa Ames DDS [facility] 03/19/2020 10:55:00 A M EDT [facility] Outpatient Attender: Sujata Bateman NP Main Office 02/08/2020 08:30:00 AM EDT [facility] ([facility] Outpatient Attender: Ayla salazar 01/27/2020 07:30:00 AM EST [facility] ([facility]) Outpatient Referrer: Elissa Suero MD 01/24/2020 02: 52:00 PM [facility] Outpatient Attender: KANDACE Velez aparna 01/18/2020 07:45:00 AM EST [facility] ([facility]) Outpatient Attender: ENA Camacho ry 01/02/2020 12:20:00 PM EST [facility] ([facility]) Outpatient Attender: Raysa PITTMANC 01/02/2020 09:43:00 A [facility] Outpatient Attender: KANDACE vogty 12/31/2019 08:45:00 AM EST [facility] ([facility]) Outpatient Attender: Raysa AMATO 12/27/2019 09:12:02 A [facility] Outpatient Attender: Raysa PITTMANC 12/27/2019 09:05:02 A [facility] Outpatient Attender: Raysa PITTMANC 12/27/2019 09:04:01 A [facility] Outpatient Attender: Raysa PITTMANC 12/27/2019 08:35:02 A [facility] Outpatient Attender: Raysa PITTAMNC 12/27/2019 08:34:00 A [facility] Outpatient Attender: Raysa PITTMANC 12/27/2019 08:32:00 A [facility] Outpatient Attender: KANDACE vogty 12/02/2019 07:40:00 AM EST [facility] ([facility]) Outpatient Attender: Raysa AMATO 11/29/2019 12:24:00 P [facility] Outpatient Attender: Raysa PITTMANC 11/29/2019 12:22:00 P [facility] Outpatient Attender: Raysa AMATO 11/29/2019 12:20:00 P [facility] Outpatient Attender: Raysa AMATO 11/29/2019 12:19:01 P [facility] Outpatient Attender: Raysa PITTMAN 11/29/2019 09:24:02 A [facility] Outpatient Attender: Raysa PITTMAN 11/29/2019 09:24:01 A [facility] Outpatient Attender: Raysa PITTMAN 11/29/2019 09:22:02 A [facility] Outpatient Attender: Raysa PITTMAN 11/29/2019 09:13:00 A [facility] Outpatient Attender: Raysa PITTMAN 11/29/2019 08:53:00 A [facility] Immunizations Vaccine Date Status Description Data Source(s) INFLUENZA VIRUS VACCINE QUADRIVALENT (6 MOS AN D UP) 11/12/2020 12:00:00 AM EST completed [facility] INFLUENZA VIRUS VACCINE QUADRIVALENT (36 MOS U P)/PF 12/21/2019 12:00:00 AM EST completed [facility] Medications Medication Brand Name Start Date Product Form Dose Route Admi nistrative Instructions Pharmacy Instructions Status Indications Reaction Description Data Source(s) 4 mg 12/05/2020 12:00:00 AM EST tablet,disintegrating 3 0 DISSOLVE ONE TABLET ON TONGUE EVERY 8 HOURS NEEDED FOR NAUSEA DISSOLVE ONE TABLET ON TONGUE EVERY 8 HOURS NEEDED FOR NAUSEA SOLD: 12/05/2020 [facility] 50 mg 12/05/2020 12:00:00 AM EST tablet 28 TAKE ONE TABLET BY MOUTH EVERY 6 HOURS NEEDED FOR PAIN MAXIMUM DAILY DOSE = FOUR TABLETS TAKE ONE TABLET BY MOUTH EVERY 6 HOURS NEEDED FOR PAIN MAXIMUM DAILY DOSE = FOUR TABLETS SOLD: 12/05/2020 [facility] 0.4 mg 12/05/2020 12:00:00 AM EST capsule 14 TAKE ONE CAPSULE BY MOUTH EVERY DAY FOR 14 DAYS TAKE ONE CAPSULE BY MOUTH EVERY DAY FOR 14 DAYS SOLD: 12/05/2020 [facility] Allergy Injection 2 Or More 11/30/2020 12:00:00 AM EST completed [facility] ([facility]) Medication administered onsite Allergy Injection 2 Or More 11/19/2020 12:00:00 AM EST completed [facility] ([facility]) Medication administered onsite Allergy Injection 2 Or More 11/09/2020 12:00:00 AM EST completed [facility] ([facility]) Medication administered onsite 20 mg 11/09/2020 12:00:00 AM EST tablet 60 TAKE TWO TABLETS BY MOUTH EVERY DAY TAKE TWO TABLETS BY MOUTH EVERY DAY SOLD: 11/12/2020 [facility] 20 mg 11/09/2020 12:00:00 AM EST tablet 36 TAKE TWO TABLETS BY MOUTH EVERY DAY TAKE TWO TABLETS BY MOUTH EVERY DAY SOLD: 12/05/2020 [facility] 50 mcg/actuation 11/05/2020 12:00:00 AM EST spray,suspension 16 SPRAY ONE SPRAY IN EACH NOSTRIL EVERY DAY SPRAY ONE SPRAY IN EACH NOSTRIL EVERY DAY SOLD: 11/12/2020 [facility] 50 mcg/actuation 11/05/2020 12:00:00 AM EST spray,suspension 16 SPRAY ONE SPRAY IN EACH NOSTRIL EVERY DAY SPRAY ONE SPRAY IN EACH NOSTRIL EVERY DAY SOLD: 12/05/2020 [facility] Allergy Injection 2 Or More 11/02/2020 12:00:00 AM EST completed [facility] ([facility]) Medication administered onsite Allergy Injection 2 Or More 10/26/2020 12:00:00 AM EST completed [facility] ([facility]) Medication administered onsite Allergy Injection 2 Or More 10/19/2020 12:00:00 AM EST completed [facility] ([facility]) Medication administered onsite Allergy Injection 2 Or More 10/12/2020 12:00:00 AM EST completed [facility] ([facility]) Medication administered onsite montelukast 10 MG Oral Tablet MONTELUKAST SODIUM 10/10/2020 12:0 0:00 AM EST tablet 17 TAKE ONE TABLET BY MOUTH EVERY D AY TAKE ONE TABLET BY MOUTH EVERY DAY SOLD: 11/12/2020 [facility] montelukast 10 MG Oral Tablet MONTELUKAST SODIUM 10/10/2020 12:0 0:00 AM EST tablet 30 TAKE ONE TABLET BY MOUTH EVERY D AY TAKE ONE TABLET BY MOUTH EVERY DAY SOLD: 11/24/2020 [facility] 40 mg 10/10/2020 12:00:00 AM EST capsule,delayed release (DR/EC) 30 TAKE ONE CAPSULE BY MOUTH EVERY DAY TAKE ONE CAPSULE BY MOUTH EVERY DAY SOLD: 11/21/2020 [facility] montelukast 10 MG Oral Tablet MONTELUKAST SODIUM 10/10/2020 12:0 0:00 AM EST tablet 30 TAKE ONE TABLET BY MOUTH EVERY D AY TAKE ONE TABLET BY MOUTH EVERY DAY SOLD: 10/14/2020 [facility] 50 mcg/actuation 10/10/2020 12:00:00 AM EST spray,suspension 16 SPRAY TWO SPRAYS IN TO EACH NOSTRIL EVERY DAY SPRAY TWO SPRAYS IN TO EACH NOSTRIL EVER Y DAY SOLD: 10/12/2020 [facility] 40 mg 10/10/2020 12:00:00 AM EST capsule,delayed release (DR/EC) 30 TAKE ONE CAPSULE BY MOUTH EVERY DAY TAKE ONE CAPSULE BY MOUTH EVERY DAY SOLD: 10/12/2020 [facility] Allergy Injection 2 Or More 10/05/2020 12:00:00 AM EST completed [facility] ([facility]) Medication administered onsite Allergy Injection 2 Or More 09/28/2020 12:00:00 AM EST completed [facility] ([facility]) Medication administered onsite 875-125 mg 09/27/2020 12:00:00 AM EST tablet 28 TAKE ONE TABLET BY MOUTH TWICE A DAY TAKE ONE TABLET BY MOUTH TWICE A DAY SOLD: 09/27/2020 [facility] Trazodone Hydrochloride 100 MG Oral Tablet TRAZODONE HCL 09/27/2020 12:00:00 AM EST tablet 30 TAKE ONE TABLET BY MOUTH AT BEDTIME TAKE ONE TABLET BY MOUTH AT BEDTIME SOLD: 10/12/2020 [facility] 5 mg 09/27/2020 12:00:00 AM EST tablet 30 TAKE ONE TABLET BY MOUTH EVERY DAY TAKE ONE TABLET BY MOUTH EVERY DAY SOLD: 12/02/2020 [facility] 5 mg 09/27/2020 12:00:00 AM EST tablet 30 TAKE ONE TABLET BY MOUTH EVERY DAY TAKE ONE TABLET BY MOUTH EVERY DAY SOLD: 10/31/2020 [facility] 5 mg 09/27/2020 12:00:00 AM EST tablet 30 TAKE ONE TABLET BY MOUTH EVERY DAY TAKE ONE TABLET BY MOUTH EVERY DAY SOLD: 10/02/2020 [facility] Allergy Injection 2 Or More 09/21/2020 12:00:00 AM EDT completed [facility] ([facility]) Medication administered onsite 40 mg 09/14/2020 12:00:00 AM EDT capsule,delayed release (DR/EC) 30 TAKE ONE CAPSULE BY MOUTH EVERY DAY TAKE ONE CAPSULE BY MOUTH EVERY DAY SOLD: 09/17/2020 [facility] atorvastatin 10 MG Oral Tablet ATORVASTATIN CALCIUM 09/14/2020 1 2:00:00 AM EDT tablet 30 TAKE ONE TABLET BY MOUTH AT BEDT KAILASH TAKE ONE TABLET BY MOUTH AT BEDTIME SOLD: 09/17/2020 [facility] atorvastatin 10 MG Oral Tablet ATORVASTATIN CALCIUM 09/14/2020 1 2:00:00 AM EDT tablet 30 TAKE ONE TABLET BY MOUTH AT BEDT KAILASH TAKE ONE TABLET BY MOUTH AT BEDTIME SOLD: 11/21/2020 [facility] atorvastatin 10 MG Oral Tablet ATORVASTATIN CALCIUM 09/14/2020 1 2:00:00 AM EDT tablet 30 TAKE ONE TABLET BY MOUTH AT BEDT KAILASH TAKE ONE TABLET BY MOUTH AT BEDTIME SOLD: 10/31/2020 [facility] Allergy Injection 2 Or More 08/31/2020 12:00:00 AM EDT completed [facility] ([facility]) Medication administered onsite Allergy Injection 2 Or More 08/24/2020 12:00:00 AM EDT completed [facility] ([facility]) Medication administered onsite 20 mg 08/17/2020 12:00:00 AM EDT tablet 60 TAKE TWO TABLETS BY MOUTH EVERY DAY TAKE TWO TABLETS BY MOUTH EVERY DAY SOLD: 09/17/2020 [facility] 20 mg 08/17/2020 12:00:00 AM EDT tablet 60 TAKE TWO TABLETS BY MOUTH EVERY DAY TAKE TWO TABLETS BY MOUTH EVERY DAY SOLD: 10/31/2020 [facility] Allergy Injection 2 Or More 08/17/2020 12:00:00 AM EDT completed [facility] ([facility]) Medication administered onsite Famotidine 20 MG Oral Tablet FAMOTIDINE 08/17/2020 12:00:00 AM EDT tab let 60 TAKE TWO TABLETS BY MOUTH EVERY DAY TAKE TWO TABLETS BY MOUTH EVERY DAY SOLD: 08/20/2020 [facility] Allergy Injection 2 Or More 08/10/2020 12:00:00 AM EDT completed [facility] ([facility]) Medication administered onsite Allergy Injection 2 Or More 08/03/2020 12:00:00 AM EDT completed [facility] ([facility]) Medication administered onsite Allergy Injection 2 Or More 07/29/2020 12:00:00 AM EDT completed [facility] ([facility], [facility]) Medication administered onsite 875-125 mg 07/23/2020 12:00:00 AM EDT tablet 20 TAKE ONE TABLET BY MOUTH TWICE A DAY FOR 10 DAYS TAKE ONE TABLET BY MOUTH TWICE A DAY FOR 10 DAYS SOLD: 07/23/2020 [facility] Amoxicillin 875 MG / Clavulanate 125 MG Oral Tablet Am oxicillin/Clavulanate Potassium 07/23/2020 12:00:00 AM EDT ORAL active [facility] ([facility]) Allergy Injection 2 Or More 07/22/2020 12:00:00 AM EDT completed [facility] ([facility]) Medication administered onsite 50 mcg/actuation 07/17/2020 12:00:00 AM EDT spray,suspension 16 SPRAY TWO SPRAYS IN EACH NOSTRIL EVERY DAY SPRAY TWO SPRAYS IN EACH NOSTRIL EVERY DAY SOLD: 07/22/2020 [facility] 40 mg 07/17/2020 12:00:00 AM EDT tablet 30 TAKE ONE TABLET BY MOUTH EVERY DAY TAKE ONE TABLET BY MOUTH EVERY DAY SOLD: 09/17/2020 [facility] 40 mg 07/17/2020 12:00:00 AM EDT tablet 30 TAKE ONE TABLET BY MOUTH EVERY DAY TAKE ONE TABLET BY MOUTH EVERY DAY SOLD: 11/21/2020 [facility] 40 mg 07/17/2020 12:00:00 AM EDT tablet 30 TAKE ONE TABLET BY MOUTH EVERY DAY TAKE ONE TABLET BY MOUTH EVERY DAY SOLD: 08/20/2020 [facility] 40 mg 07/17/2020 12:00:00 AM EDT tablet 30 TAKE ONE TABLET BY MOUTH EVERY DAY TAKE ONE TABLET BY MOUTH EVERY DAY SOLD: 10/31/2020 [facility] 40 mg 07/17/2020 12:00:00 AM EDT tablet 30 TAKE ONE TABLET BY MOUTH EVERY DAY TAKE ONE TABLET BY MOUTH EVERY DAY SOLD: 07/22/2020 [facility] Allergy Injection 2 Or More 07/15/2020 12:00:00 AM EDT completed [facility] ([facility]) Medication administered onsite 100 mg 07/05/2020 12:00:00 AM EDT tablet extended release 24 hr 30 TAKE ONE TABLET BY MOUTH EVERY DAY TAKE ONE TABLET BY MOUTH EVERY DAY SOLD: 09/12/2020 [facility] 100 mg 07/05/2020 12:00:00 AM EDT tablet extended release 24 hr 30 TAKE ONE TABLET BY MOUTH EVERY DAY TAKE ONE TABLET BY MOUTH EVERY DAY SOLD: 10/14/2020 [facility] 100 mg 07/05/2020 12:00:00 AM EDT tablet extended release 24 hr 30 TAKE ONE TABLET BY MOUTH EVERY DAY TAKE ONE TABLET BY MOUTH EVERY DAY SOLD: 11/14/2020 [facility] 100 mg 07/05/2020 12:00:00 AM EDT tablet extended release 24 hr 30 TAKE ONE TABLET BY MOUTH EVERY DAY TAKE ONE TABLET BY MOUTH EVERY DAY SOLD: 07/07/2020 [facility] 5 mg 06/26/2020 12:00:00 AM EDT tablet 30 TAKE ONE TABLET BY MOUTH EVERY DAY TAKE ONE TABLET BY MOUTH EVERY DAY SOLD: 08/26/2020 [facility] 15 mg 06/26/2020 12:00:00 AM EDT tablet 30 TAKE ONE TABLET BY MOUTH EVERY DAY TAKE ONE TABLET BY MOUTH EVERY DAY SOLD: 06/26/2020 [facility] 40 mg 06/26/2020 12:00:00 AM EDT tablet 30 TAKE ONE TABLET BY MOUTH EVERY DAY TAKE ONE TABLET BY MOUTH EVERY DAY SOLD: 06/26/2020 [facility] 5 mg 06/26/2020 12:00:00 AM EDT tablet 30 TAKE ONE TABLET BY MOUTH EVERY DAY TAKE ONE TABLET BY MOUTH EVERY DAY SOLD: 07/26/2020 [facility] 10 mg 06/26/2020 12:00:00 AM EDT tablet 30 TAKE ONE TABLET BY MOUTH EVERY DAY TAKE ONE TABLET BY MOUTH EVERY DAY SOLD: 06/26/2020 [facility] 5 mg 06/26/2020 12:00:00 AM EDT tablet 30 TAKE ONE TABLET BY MOUTH EVERY DAY TAKE ONE TABLET BY MOUTH EVERY DAY SOLD: 06/26/2020 [facility] Allergy Injection 2 Or More 06/24/2020 12:00:00 AM EDT completed [facility] ([facility] Medication administered onsite 10 mg 06/18/2020 12:00:00 AM EDT suppository 12 INSERT ONE SUPPOSITORY RECTALLY EVERY DAY NEEDED INSERT ONE SUPPOSITORY RECTALLY EVERY DA Y NEEDED SOLD: 06/18/2020 [facility] Allergy Injection 2 Or More 06/17/2020 12:00:00 AM EDT completed [facility] ([facility]) Medication administered onsite 500 mg 06/15/2020 12:00:00 AM EDT tablet 20 TAKE ONE TABLET BY MOUTH TWICE A DAY UNTIL GONE TAKE ONE TABLET BY MOUTH TWICE A DAY UNTIL GONE SOLD: 2019 [facility] Metronidazole 500 MG Oral Tablet METRONIDAZOLE 06/15/2020 12:0 0:00 AM EDT tablet 30 TAKE ONE TABLET BY M OUTH THREE TIMES A DAY WITH FOOD UNTIL GONE DO NOT DRINK ALCOHOL TAKE ONE TABLET BY MOUTH THREE TIMES A D AY WITH FOOD UNTIL GONE DO NOT DRINK ALCOHOL SOLD: 06/15/2020 [facility] 4 mg 06/15/2020 12:00:00 AM EDT tablet,disintegrating 1 6 DISSOLVE ONE TABLET ON TONGUE EVERY 6 TO 8 HOURS NEEDED FOR NAUSEA AND VOMITING DISSOLVE ONE TABLET ON TONGUE EVERY 6 TO 8 HOURS NEEDED FOR NAUSEA AND VOMITING SOLD: 06/15/2020 [facility] 5-325 mg 06/15/2020 12:00:00 AM EDT tablet 15 TAKE ONE TABLET BY MOUTH THREE TIMES A DAY NEEDED FOR PAIN MAXIMUM DAILY DOSE = THREE TABLETS TAKE ONE TABLET BY MOUTH THREE TIMES A DAY NEEDED FOR PAIN MAXIMUM DAILY DOSE = THREE TABLETS SOLD: 06/15/2020 [facility] Allergy Injection 2 Or More 06/10/2020 12:00:00 AM EDT completed [facility] ([facility]) Medication administered onsite Allergy Injection 2 Or More 06/03/2020 12:00:00 AM EDT completed [facility] ([facility]) Medication administered onsite 40 mg 05/31/2020 12:00:00 AM EDT tablet 30 TAKE ONE TABLET BY MOUTH EVERY DAY TAKE ONE TABLET BY MOUTH EVERY DAY SOLD: 05/31/2020 [facility] Allergy Injection 2 Or More 05/27/2020 12:00:00 AM EDT completed [facility] ([facility]) Medication administered onsite Allergy Injection 2 Or More 05/20/2020 12:00:00 AM EDT completed [facility] ([facility]) Medication administered onsite montelukast 10 MG Oral Tablet MONTELUKAST SODIUM 05/14/2020 12:0 0:00 AM EDT tablet 30 TAKE ONE TABLET BY MOUTH EVERY D AY TAKE ONE TABLET BY MOUTH EVERY DAY SOLD: 09/17/2020 [facility] 10 mg 05/14/2020 12:00:00 AM EDT tablet 30 TAKE ONE TABLET BY MOUTH AT BEDTIME TAKE ONE TABLET BY MOUTH AT BEDTIME SOLD: 05/27/2020 [facility] 10 mg 05/14/2020 12:00:00 AM EDT tablet 30 TAKE ONE TABLET BY MOUTH AT BEDTIME TAKE ONE TABLET BY MOUTH AT BEDTIME SOLD: 06/26/2020 [facility] atorvastatin 10 MG Oral Tablet ATORVASTATIN CALCIUM 05/14/2020 1 2:00:00 AM EDT tablet 30 TAKE ONE TABLET BY MOUTH AT BEDT KAILASH TAKE ONE TABLET BY MOUTH AT BEDTIME SOLD: 08/20/2020 [facility] montelukast 10 MG Oral Tablet MONTELUKAST SODIUM 05/14/2020 12:0 0:00 AM EDT tablet 30 TAKE ONE TABLET BY MOUTH EVERY D AY TAKE ONE TABLET BY MOUTH EVERY DAY SOLD: 08/20/2020 [facility] montelukast 10 MG Oral Tablet MONTELUKAST SODIUM 05/14/2020 12:0 0:00 AM EDT tablet 30 TAKE ONE TABLET BY MOUTH EVERY D AY TAKE ONE TABLET BY MOUTH EVERY DAY SOLD: 06/26/2020 [facility] montelukast 10 MG Oral Tablet MONTELUKAST SODIUM 05/14/2020 12:0 0:00 AM EDT tablet 30 TAKE ONE TABLET BY MOUTH EVERY D AY TAKE ONE TABLET BY MOUTH EVERY DAY SOLD: 05/27/2020 [facility] Allergy Injection 2 Or More 05/13/2020 12:00:00 AM EDT completed [facility] ([facility]) Medication administered onsite 50 mcg/actuation 05/11/2020 12:00:00 AM EDT spray,suspension 16 SPRAY ONE SPRAY IN EACH NOSTRIL EVERY DAY SPRAY ONE SPRAY IN EACH NOSTRIL EVERY DAY SOLD: 05/27/2020 [facility] 50 mcg/actuation 05/11/2020 12:00:00 AM EDT spray,suspension 16 SPRAY ONE SPRAY IN EACH NOSTRIL EVERY DAY SPRAY ONE SPRAY IN EACH NOSTRIL EVERY DAY SOLD: 06/26/2020 [facility] 50 mcg/actuation 05/11/2020 12:00:00 AM EDT spray,suspension 16 SPRAY ONE SPRAY IN EACH NOSTRIL EVERY DAY SPRAY ONE SPRAY IN EACH NOSTRIL EVERY DAY SOLD: 09/17/2020 [facility] 50 mcg/actuation 05/11/2020 12:00:00 AM EDT spray,suspension 16 SPRAY ONE SPRAY IN EACH NOSTRIL EVERY DAY SPRAY ONE SPRAY IN EACH NOSTRIL EVERY DAY SOLD: 08/20/2020 [facility] Allergy Injection 2 Or More 05/06/2020 12:00:00 AM EDT completed [facility] ([facility]) Medication administered onsite Allergy Injection 2 Or More 04/29/2020 12:00:00 AM EDT completed [facility] ([facility]) Medication administered onsite Allergy Injection 2 Or More 04/22/2020 12:00:00 AM EDT completed [facility] ([facility]) Medication administered onsite Allergy Injection 2 Or More 04/15/2020 12:00:00 AM EDT completed [facility] ([facility]) Medication administered onsite 40 mg 04/12/2020 12:00:00 AM EDT tablet 30 TAKE ONE TABLET BY MOUTH EVERY DAY TAKE ONE TABLET BY MOUTH EVERY DAY SOLD: 06/26/2020 [facility] 40 mg 04/12/2020 12:00:00 AM EDT tablet 30 TAKE ONE TABLET BY MOUTH EVERY DAY TAKE ONE TABLET BY MOUTH EVERY DAY SOLD: 05/27/2020 [facility] 40 mg 04/12/2020 12:00:00 AM EDT tablet 30 TAKE ONE TABLET BY MOUTH EVERY DAY TAKE ONE TABLET BY MOUTH EVERY DAY SOLD: 04/16/2020 [facility] Allergy Injection 2 Or More 04/08/2020 12:00:00 AM EDT completed [facility] ([facility]) Medication administered onsite Allergy Injection 2 Or More 04/01/2020 12:00:00 AM EDT completed [facility] ([facility]) Medication administered onsite 100 mg 03/30/2020 12:00:00 AM EDT tablet extended release 24 hr 30 TAKE ONE TABLET BY MOUTH EVERY DAY TAKE ONE TABLET BY MOUTH EVERY DAY SOLD: 05/03/2020 [facility] 100 mg 03/30/2020 12:00:00 AM EDT tablet extended release 24 hr 30 TAKE ONE TABLET BY MOUTH EVERY DAY TAKE ONE TABLET BY MOUTH EVERY DAY SOLD: 03/31/2020 [facility] 50 mcg/actuation 03/30/2020 12:00:00 AM EDT spray,suspension 16 SPRAY ONE SPRAY IN EACH NOSTRIL EVERY DAY SPRAY ONE SPRAY IN EACH NOSTRIL EVERY DAY SOLD: 05/03/2020 [facility] 50 mcg/actuation 03/30/2020 12:00:00 AM EDT spray,suspension 16 SPRAY ONE SPRAY IN EACH NOSTRIL EVERY DAY SPRAY ONE SPRAY IN EACH NOSTRIL EVERY DAY SOLD: 03/31/2020 [facility] 100 mg 03/30/2020 12:00:00 AM EDT tablet extended release 24 hr 30 TAKE ONE TABLET BY MOUTH EVERY DAY TAKE ONE TABLET BY MOUTH EVERY DAY SOLD: 08/12/2020 [facility] 100 mg 03/30/2020 12:00:00 AM EDT tablet extended release 24 hr 30 TAKE ONE TABLET BY MOUTH EVERY DAY TAKE ONE TABLET BY MOUTH EVERY DAY SOLD: 06/11/2020 [facility] 500 mg 03/26/2020 12:00:00 AM EDT tablet 20 TAKE ONE TABLET BY MOUTH TWICE A DAY TAKE ONE TABLET BY MOUTH TWICE A DAY SOLD: 03/26/2020 [facility] Allergy Injection 2 Or More 03/25/2020 12:00:00 AM EDT completed [facility] ([facility]) Medication administered onsite Allergy Injection 2 Or More 03/18/2020 12:00:00 AM EDT completed [facility] ([facility]) Medication administered onsite 20 mg 03/15/2020 12:00:00 AM EDT tablet 60 TAKE TWO TABLETS BY MOUTH EVERY DAY TAKE TWO TABLETS BY MOUTH EVERY DAY SOLD: 03/17/2020 [facility] Famotidine 20 MG Oral Tablet FAMOTIDINE 03/15/2020 12:00:00 AM EDT tab let 60 TAKE TWO TABLETS BY MOUTH EVERY DAY TAKE TWO TABLETS BY MOUTH EVERY DAY SOLD: 04/16/2020 [facility] 20 mg 03/15/2020 12:00:00 AM EDT tablet 60 TAKE TWO TABLETS BY MOUTH EVERY DAY TAKE TWO TABLETS BY MOUTH EVERY DAY SOLD: 06/26/2020 [facility] Allergy Injection 2 Or More 03/11/2020 12:00:00 AM EDT completed [facility] ([facility]) Medication administered onsite Allergy Injection 2 Or More 03/05/2020 12:00:00 AM EDT completed [facility] ([facility]) Medication administered onsite INHALER, ASSIST DEVICES 03/01/2020 12:00:00 AM EDT spacer 1 USE WITH INHALED MEDICATONS NEEDED USE WITH INHALED MEDICATONS NEEDED SOLD: 03/01/2020 [facility] Mini Aerosol Chamber 03/01/2020 12:00:00 AM EDT active [facility] ([facility]) 90 mcg/actuation 03/01/2020 12:00:00 AM EDT HFA aerosol inha ler 18 INHALE TWO PUFFS BY MOUTH EVERY 4 HOURS NEEDED INHALE TWO PUFFS BY MOUTH EVERY 4 HOURS NEEDED SOLD: 03/01/2020 [facility] 50 mg 02/24/2020 12:00:00 AM EDT tablet extended release 24 hr 30 TAKE ONE TABLET BY MOUTH EVERY DAY TAKE ONE TABLET BY MOUTH EVERY DAY SOLD: 03/25/2020 [facility] Allergy Injection 2 Or More 02/24/2020 12:00:00 AM EDT completed [facility] ([facility]) Medication administered onsite 50 mg 02/24/2020 12:00:00 AM EDT tablet extended release 24 hr 30 TAKE ONE TABLET BY MOUTH EVERY DAY TAKE ONE TABLET BY MOUTH EVERY DAY SOLD: 02/24/2020 [facility] 875-125 mg 02/24/2020 12:00:00 AM EDT tablet 20 TAKE ONE TABLET BY MOUTH TWICE A DAY TAKE ONE TABLET BY MOUTH TWICE A DAY SOLD: 02/24/2020 [facility] 40 mg 02/17/2020 12:00:00 AM EDT capsule,delayed release (DR/EC) 30 TAKE ONE CAPSULE BY MOUTH EVERY DAY TAKE ONE CAPSULE BY MOUTH EVERY DAY SOLD: 03/17/2020 [facility] 40 mg 02/17/2020 12:00:00 AM EDT capsule,delayed release (DR/EC) 30 TAKE ONE CAPSULE BY MOUTH EVERY DAY TAKE ONE CAPSULE BY MOUTH EVERY DAY SOLD: 06/26/2020 [facility] 40 mg 02/17/2020 12:00:00 AM EDT capsule,delayed release (DR/EC) 30 TAKE ONE CAPSULE BY MOUTH EVERY DAY TAKE ONE CAPSULE BY MOUTH EVERY DAY SOLD: 02/18/2020 [facility] 10 mg 02/17/2020 12:00:00 AM EDT tablet 30 TAKE ONE TABLET BY MOUTH AT BEDTIME TAKE ONE TABLET BY MOUTH AT BEDTIME SOLD: 04/16/2020 [facility] 10 mg 02/17/2020 12:00:00 AM EDT tablet 30 TAKE ONE TABLET BY MOUTH AT BEDTIME TAKE ONE TABLET BY MOUTH AT BEDTIME SOLD: 02/18/2020 [facility] 40 mg 02/17/2020 12:00:00 AM EDT capsule,delayed release (DR/EC) 30 TAKE ONE CAPSULE BY MOUTH EVERY DAY TAKE ONE CAPSULE BY MOUTH EVERY DAY SOLD: 05/27/2020 [facility] Allergy Injection 2 Or More 02/17/2020 12:00:00 AM EDT completed [facility] ([facility]) Medication administered onsite 10 mg 02/17/2020 12:00:00 AM EDT tablet 30 TAKE ONE TABLET BY MOUTH AT BEDTIME TAKE ONE TABLET BY MOUTH AT BEDTIME SOLD: 03/17/2020 [facility] 40 mg 02/17/2020 12:00:00 AM EDT capsule,delayed release (DR/EC) 30 TAKE ONE CAPSULE BY MOUTH EVERY DAY TAKE ONE CAPSULE BY MOUTH EVERY DAY SOLD: 08/20/2020 [facility] 40 mg 02/17/2020 12:00:00 AM EDT capsule,delayed release (DR/EC) 30 TAKE ONE CAPSULE BY MOUTH EVERY DAY TAKE ONE CAPSULE BY MOUTH EVERY DAY SOLD: 04/16/2020 [facility] Allergy Injection 2 Or More 02/11/2020 12:00:00 AM EDT completed [facility] ([facility]) Medication administered onsite Allergy Injection 2 Or More 02/05/2020 12:00:00 AM EDT completed [facility] ([facility]) Medication administered onsite Allergy Injection 2 Or More 01/29/2020 12:00:00 AM EST completed [facility] ([facility]) Medication administered onsite Allergy Injection 2 Or More 01/23/2020 12:00:00 AM EST completed [facility] ([facility]) Medication administered onsite 875-125 mg 01/18/2020 12:00:00 AM EST tablet 14 TAKE ONE TABLET BY MOUTH TWICE A DAY FOR 7 DAYS TAKE ONE TABLET BY MOUTH TWICE A DAY FOR 7 DAYS SOLD: 01/18/2020 [facility] 30-600 mg 01/18/2020 12:00:00 AM EST tablet extended release 12 hr 14 TAKE ONE TABLET BY MOUTH EVERY MORNING AND 1 EVERY EVENING TAKE ONE TABLET BY MOUTH EVERY MORNING AND 1 EVERY EVENING SOLD: 01/18/2020 [facility] 12 HR Dextromethorphan Hydrobromide 30 M G / Guaifenesin 600 MG Extended Release Oral Tablet [Mucinex DM] Mucinex DM 01/18/2020 12:00:00 AM EST completed [facility] ([facility]) Levofloxacin 500 MG Oral Tablet [Levaquin] Levaquin 01/18 12:00:00 AM EST completed [facility] ([facility]) Amoxicillin 875 MG / Clavulanate 125 MG Oral Tablet Am oxicillin/Clavulanate Potassium 01/18/2020 12:00:00 AM EST ORAL completed [facility] ([facility]) montelukast 10 MG Oral Tablet MONTELUKAST SODIUM 01/17/2020 12:0 0:00 AM EST tablet 30 TAKE ONE TABLET BY MOUTH EVERY D AY TAKE ONE TABLET BY MOUTH EVERY DAY SOLD: 01/23/2020 [facility] montelukast 10 MG Oral Tablet MONTELUKAST SODIUM 01/17/2020 12:0 0:00 AM EST tablet 30 TAKE ONE TABLET BY MOUTH EVERY D AY TAKE ONE TABLET BY MOUTH EVERY DAY SOLD: 05/03/2020 [facility] montelukast 10 MG Oral Tablet MONTELUKAST SODIUM 01/17/2020 12:0 0:00 AM EST tablet 30 TAKE ONE TABLET BY MOUTH EVERY D AY TAKE ONE TABLET BY MOUTH EVERY DAY SOLD: 03/19/2020 [facility] montelukast 10 MG Oral Tablet MONTELUKAST SODIUM 01/17/2020 12:0 0:00 AM EST tablet 30 TAKE ONE TABLET BY MOUTH EVERY D AY TAKE ONE TABLET BY MOUTH EVERY DAY SOLD: 02/20/2020 [facility] 40 mg 01/17/2020 12:00:00 AM EST tablet 30 TAKE ONE TABLET BY MOUTH EVERY DAY TAKE ONE TABLET BY MOUTH EVERY DAY SOLD: 01/23/2020 [facility] 40 mg 01/17/2020 12:00:00 AM EST tablet 30 TAKE ONE TABLET BY MOUTH EVERY DAY TAKE ONE TABLET BY MOUTH EVERY DAY SOLD: 02/20/2020 [facility] 10 mg 01/14/2020 12:00:00 AM EST tablet 30 TAKE ONE TABLET BY MOUTH AT BEDTIME TAKE ONE TABLET BY MOUTH AT BEDTIME SOLD: 01/23/2020 [facility] 10 mg 01/14/2020 12:00:00 AM EST tablet 30 TAKE ONE TABLET BY MOUTH AT BEDTIME TAKE ONE TABLET BY MOUTH AT BEDTIME SOLD: 02/20/2020 [facility] 10 mg 01/14/2020 12:00:00 AM EST tablet 30 TAKE ONE TABLET BY MOUTH AT BEDTIME TAKE ONE TABLET BY MOUTH AT BEDTIME SOLD: 05/03/2020 [facility] 10 mg 01/14/2020 12:00:00 AM EST tablet 30 TAKE ONE TABLET BY MOUTH AT BEDTIME TAKE ONE TABLET BY MOUTH AT BEDTIME SOLD: 03/19/2020 [facility] 20 mg 01/13/2020 12:00:00 AM EST tablet 14 TAKE ONE TABLET BY MOUTH TWICE A DAY TAKE ONE TABLET BY MOUTH TWICE A DAY SOLD: 01/13/2020 [facility] 90 mcg/actuation 01/09/2020 12:00:00 AM EST HFA aerosol inha ler 18 INHALE TWO PUFFS BY MOUTH THREE TIMES A DAY FOR 10 DAYS INHALE TWO PUFFS BY MOUTH THREE TIMES A DAY FOR 10 DAYS SOLD: 01/09/2020 [facility] 500 mg 01/09/2020 12:00:00 AM EST tablet 10 TAKE ONE TABLET BY MOUTH EVERY DAY FOR 10 DAYS TAKE ONE TABLET BY MOUTH EVERY DAY FOR 10 DAYS SOLD: 020 [facility] Doxycycline Monohydrate 100 [address] Caps[address] Doxy[address] [facility] hydrate 01/02/2020 12:00:00 AM EST ORAL completed [facility] ([facility]) 100 mg 01/02/2020 12:00:00 AM EST capsule 20 TAKE ONE CAPSULE BY MOUTH TWICE A DAY TAKE ONE CAPSULE BY MOUTH TWICE A DAY SOLD: 01/02/2020 [facility] 75 mg 12/31/2019 12:00:00 AM EST capsule 10 TAKE ONE CAPSULE BY MOUTH TWICE A DAY FOR 5 DAYS TAKE ONE CAPSULE BY MOUTH TWICE A DAY FOR 5 DAYS SOLD: 12/31/2019 [facility] Oseltamivir 75 MG Oral Capsule Oseltamivir Phosphate 12/31/2019 12:00:00 AM EST ORAL completed [facility] ([facility]) Allergy Injection 2 Or More 12/29/2019 12:00:00 AM EST completed [facility] ([facility] Medication administered onsite Allergy Injection 2 Or More 12/23/2019 12:00:00 AM EST completed [facility] ([facility], [facility]) Medication administered onsite 50 mcg/actuation 12/22/2019 12:00:00 AM EST spray,suspension 16 SPRAY ONE SPRAY IN EACH NOSTRIL EVERY DAY SPRAY ONE SPRAY IN EACH NOSTRIL EVERY DAY SOLD: 01/23/2020 [facility] 50 mcg/actuation 12/22/2019 12:00:00 AM EST spray,suspension 16 SPRAY ONE SPRAY IN EACH NOSTRIL EVERY DAY SPRAY ONE SPRAY IN EACH NOSTRIL EVERY DAY SOLD: 12/26/2019 [facility] 50 mcg/actuation 12/22/2019 12:00:00 AM EST spray,suspension 16 SPRAY ONE SPRAY IN EACH NOSTRIL EVERY DAY SPRAY ONE SPRAY IN EACH NOSTRIL EVERY DAY SOLD: 03/01/2020 [facility] 40 mg 12/19/2019 12:00:00 AM EST tablet 30 TAKE ONE TABLET BY MOUTH EVERY DAY TAKE ONE TABLET BY MOUTH EVERY DAY SOLD: 12/26/2019 [facility] Allergy Injection 2 Or More 12/16/2019 12:00:00 AM EST completed [facility] ([facility], [facility]) Medication administered onsite Allergy Injection 2 Or More 12/08/2019 12:00:00 AM EST completed [facility] ([facility], [facility]) Medication administered onsite 875-125 mg 12/02/2019 12:00:00 AM EST tablet 28 TAKE ONE TABLET BY MOUTH TWICE A DAY FOR 14 DAYS TAKE ONE TABLET BY MOUTH TWICE A DAY FOR 14 DAYS SOLD: 12/02/2019 [facility] Allergy Injection 2 Or More 12/02/2019 12:00:00 AM EST completed [facility] ([facility], [facility]) Medication administered onsite Amoxicillin 875 MG / Clavulanate 125 MG Oral Tablet Am oxicillin/Clavulanate Potassium 12/02/2019 12:00:00 AM EST ORAL completed [facility] ([facility]) Allergy Injection 2 Or More 11/25/2019 12:00:00 AM EST completed [facility] ([facility]) Medication administered onsite Famotidine 20 MG Oral Tablet FAMOTIDINE 11/25/2019 12:00:00 AM EST tab let 60 TAKE TWO TABLETS BY MOUTH EVERY DAY TAKE TWO TABLETS BY MOUTH EVERY DAY SOLD: 01/23/2020 [facility] 20 mg 11/25/2019 12:00:00 AM EST tablet 60 TAKE TWO TABLETS BY MOUTH EVERY DAY TAKE TWO TABLETS BY MOUTH EVERY DAY SOLD: 02/18/2020 [facility] Famotidine 20 MG Oral Tablet FAMOTIDINE 11/25/2019 12:00:00 AM EST tab let 60 TAKE TWO TABLETS BY MOUTH EVERY DAY TAKE TWO TABLETS BY MOUTH EVERY DAY SOLD: 11/26/2019 [facility] Allergy Injection 2 Or More 11/18/2019 12:00:00 AM EST completed [facility] ([facility]) Medication administered onsite Allergy Injection 2 Or More 11/11/2019 12:00:00 AM EST completed [facility] ([facility]) Medication administered onsite Allergy Injection 2 Or More 11/03/2019 12:00:00 AM EST completed [facility] ([facility]) Medication administered onsite 40 mg 10/31/2019 12:00:00 AM EST tablet 30 TAKE ONE TABLET BY MOUTH EVERY DAY TAKE ONE TABLET BY MOUTH EVERY DAY SOLD: 11/26/2019 [facility] 40 mg 10/31/2019 12:00:00 AM EST tablet 30 TAKE ONE TABLET BY MOUTH EVERY DAY TAKE ONE TABLET BY MOUTH EVERY DAY SOLD: 11/01/2019 [facility] 40 mg 10/31/2019 12:00:00 AM EST tablet 30 TAKE ONE TABLET BY MOUTH EVERY DAY TAKE ONE TABLET BY MOUTH EVERY DAY SOLD: 12/26/2019 [facility] montelukast 10 MG Oral Tablet MONTELUKAST SODIUM 10/28/2019 12:0 0:00 AM EST tablet 30 TAKE ONE TABLET BY MOUTH EVERY D AY TAKE ONE TABLET BY MOUTH EVERY DAY SOLD: 04/16/2020 [facility] montelukast 10 MG Oral Tablet MONTELUKAST SODIUM 10/28/2019 12:0 0:00 AM EST tablet 30 TAKE ONE TABLET BY MOUTH EVERY D AY TAKE ONE TABLET BY MOUTH EVERY DAY SOLD: 11/26/2019 [facility] montelukast 10 MG Oral Tablet MONTELUKAST SODIUM 10/28/2019 12:0 0:00 AM EST tablet 30 TAKE ONE TABLET BY MOUTH EVERY D AY TAKE ONE TABLET BY MOUTH EVERY DAY SOLD: 02/18/2020 [facility] montelukast 10 MG Oral Tablet MONTELUKAST SODIUM 10/28/2019 12:0 0:00 AM EST tablet 30 TAKE ONE TABLET BY MOUTH EVERY D AY TAKE ONE TABLET BY MOUTH EVERY DAY SOLD: 12/26/2019 [facility] montelukast 10 MG Oral Tablet MONTELUKAST SODIUM 10/28/2019 12:0 0:00 AM EST tablet 30 TAKE ONE TABLET BY MOUTH EVERY D AY TAKE ONE TABLET BY MOUTH EVERY DAY SOLD: 10/31/2019 [facility] Allergy Injection 2 Or More 10/28/2019 12:00:00 AM EST completed [facility] ([facility]) Medication administered onsite montelukast 10 MG Oral Tablet MONTELUKAST SODIUM 10/28/2019 12:0 0:00 AM EST tablet 30 TAKE ONE TABLET BY MOUTH EVERY D AY TAKE ONE TABLET BY MOUTH EVERY DAY SOLD: 03/17/2020 [facility] Allergy Injection 2 Or More 10/21/2019 12:00:00 AM EST completed [facility] ([facility]) Medication administered onsite Allergy Injection 2 Or More 10/14/2019 12:00:00 AM EST completed [facility] ([facility]) Medication administered onsite Allergy Injection 2 Or More 10/09/2019 12:00:00 AM EST completed [facility] ([facility]) Medication administered onsite 50 mcg/actuation 09/26/2019 12:00:00 AM EST spray,suspension 16 SPRAY ONE SPRAY IN EACH NOSTRIL EVERY DAY SPRAY ONE SPRAY IN EACH NOSTRIL EVERY DAY SOLD: 11/26/2019 [facility] 50 mcg/actuation 09/26/2019 12:00:00 AM EST spray,suspension 16 SPRAY ONE SPRAY IN EACH NOSTRIL EVERY DAY SPRAY ONE SPRAY IN EACH NOSTRIL EVERY DAY SOLD: 10/31/2019 [facility] 40 mg 08/23/2019 12:00:00 AM EDT capsule,delayed release (DR/EC) 30 TAKE ONE CAPSULE BY MOUTH EVERY DAY TAKE ONE CAPSULE BY MOUTH EVERY DAY SOLD: 01/23/2020 [facility] 40 mg 08/23/2019 12:00:00 AM EDT capsule,delayed release (DR/EC) 30 TAKE ONE CAPSULE BY MOUTH EVERY DAY TAKE ONE CAPSULE BY MOUTH EVERY DAY SOLD: 10/31/2019 [facility] 40 mg 08/23/2019 12:00:00 AM EDT capsule,delayed release (DR/EC) 30 TAKE ONE CAPSULE BY MOUTH EVERY DAY TAKE ONE CAPSULE BY MOUTH EVERY DAY SOLD: 11/26/2019 [facility] 40 mg 08/23/2019 12:00:00 AM EDT capsule,delayed release (DR/EC) 30 TAKE ONE CAPSULE BY MOUTH EVERY DAY TAKE ONE CAPSULE BY MOUTH EVERY DAY SOLD: 12/26/2019 [facility] 10 mg 08/08/2019 12:00:00 AM EDT tablet 30 TAKE ONE TABLET BY MOUTH AT BEDTIME TAKE ONE TABLET BY MOUTH AT BEDTIME SOLD: 10/16/2019 [facility] 10 mg 08/08/2019 12:00:00 AM EDT tablet 30 TAKE ONE TABLET BY MOUTH AT BEDTIME TAKE ONE TABLET BY MOUTH AT BEDTIME SOLD: 12/26/2019 [facility] 10 mg 08/08/2019 12:00:00 AM EDT tablet 30 TAKE ONE TABLET BY MOUTH AT BEDTIME TAKE ONE TABLET BY MOUTH AT BEDTIME SOLD: 11/24/2019 [facility] 150 mg 08/08/2019 12:00:00 AM EDT tablet 60 TAKE ONE TABLET BY MOUTH TWICE A DAY TAKE ONE TABLET BY MOUTH TWICE A DAY SOLD: 10/16/2019 [facility] 10 mg 08/08/2019 12:00:00 AM EDT tablet 30 TAKE ONE TABLET BY MOUTH AT BEDTIME TAKE ONE TABLET BY MOUTH AT BEDTIME SOLD: 02/09/2020 [facility] Azelastine HCL (Nasal) Azelastine HCL (Nasal) 06/29/2019 12:00:00 AM E DT completed [facility] ([facility]) 40 mg 06/10/2019 12:00:00 AM EDT tablet 7 TAKE ONE TABLET BY MOUTH EVERY DAY TAKE ONE TABLET BY MOUTH EVERY DAY SOLD: 10/23/2019 [facility] 40 mg 06/10/2019 12:00:00 AM EDT tablet 30 TAKE ONE TABLET BY MOUTH EVERY DAY TAKE ONE TABLET BY MOUTH EVERY DAY SOLD: 03/17/2020 [facility] Insurance Providers Payer name Policy type / Coverage type Policy ID Covered alliance party ID Covered alliance party's relationship to l[place] Policy [place] Plan Information [employer] COMM[employer]AN MCDHMO [id number] SP [id number] [employer] COMM[employer]ITY PLAN MCDHMO [id number] SP [id number] [employer] Essential Plan P [id number] S [id number] [employer](MCAID) O [id number] S [id number] Self Pay P UNAVAILABLE S UNAVAILA BLE Managed Care - [facility] P [id number] S [id number] Medicaid S [id number] S [id number] [employer] COMMUNITY PLAN MCDHMO [id number] [id number] [facility] (HMO) [id number] Self [id number] [facility] (HMO) [id number] Self [id number] [employer]-Med[employer] [id number] [employer] COMMUNITY PLAN MCDO [id number] SP [id number] [facility] (HMO) [id number] Self [id number] [employer] [id number] Self [id number] [facility] Community Plan Commercial [id number] Self [id number] [facility] (HMO) [id number] Self [id number] [facility] (HMO[facility] [id number] Self [id number] [facility] (HMO) [id number] Self [id number] Managed Care - [employer] P [id number] S [id number] [facility] Comm Plan Medicaid F [id number] SELF [id number] [facility] Comm Plan Medicaid F [id number] SELF [id number] [facility] (H[facility]) [id number] Self [id number] Managed Care - [facility] P [id number] S [id number] [facility] (HMO) [id number] Self [id number] [facility] (HMO) [id number] Self [id number] [employer] Medigap Part B [id number] Self [id number] [facility] Health Maintenance Organization (HMO) [id number] Self [id number] [facility] ([facility] [id number] Self [id number] [facility] Organization (HMO) [id number] Self [id number] [facility] O [id number] S [id number] [facility] Organization (HMO) [id number] Self [id number] [facility] [place] [facility] (HMO) [id number] [facility] [place] Health Maintenance Organization (HMO) [id number] Self [id number] [facility] Community Plan Commercial [id number] Self [id number] [employer] (pr) Medigap Part B [id number] Self [id number] [facility] (HMO) [id number] Self [id number] MEDICAID M [id number] [facility] Community Plan Commercial [id number] Self [id number] [facility] Community Plan Commercial [id number] Self [id number] [facility] Community Plan Commercial [id number] Self [id number] [facility] Community Plan Commercial [id number] Self [id number] [facility] Organization (HMO) [id number] Self [id number] [facility] [facility] Maintenance Organization (HMO) [id number] Self [id number] [facility] Plan Commercial [id number] Self [id number] [employer] Medigap Part B [id number] Self [id number] [facility] Health Maintenance Organization (HMO) [id number] Self [id number] [employer] Commercial [id number] Self [id number] Community Plan Commercial [id number] Self [id number] [employer] Commercial Self Community Plan Commercial Self [place] Medigap Part B Self [employer] Med[employer]ap Part B Self [facility] Health Maintenance Organization (HMO) Self [employer] [id number] SP [id number] D Managed Care [facility] P [id number] S [id number] Medicaid Dental S [id number] S [id number] [employer] PPO P [id number] S [id number] [employer] P [id number] S [id number] [employer]-O/P [id number] 18 [id number] Problems, Conditions, and Diagnoses Code Display Name Description Problem Type Effective Dates Data Source(s) 525.64 Fractured dental restorative material wi th loss of material Fractured dental restorative material with loss of material 11/29/2019 09:23:40 AM EST [facility] Surgeries/Procedures Procedure Description Date Indications Data Source(s) PROF NISA ALLG IMMNTX X W/PRV ALLGIC XTRCS NJXS 2020 12:00:00 AM EST [facility] ([facility]) Allergy Mixed Antigens 11/21/2020 12:00:00 AM EST [facility] ([facility]) PROF SVCS ALLG IMMNTX X W/PRV ALLGIC XTRCS NJXS 2019 12:00:00 AM EST [facility] ([facility]) PROF SVCS ALLG IMMNTX X W/PRV ALLGIC XTRCS NJXS 2019 12:00:00 AM EST [facility] ([facility]) PROF SVCS ALLG IMMNTX X W/PRV ALLGIC XTRCS NJXS 2019 12:00:00 AM EST [facility] ([facility]) PROF SVCS ALLG IMMNTX X W/PRV ALLGIC XTRCS NJXS 2019 12:00:00 AM EST [facility] ([facility]) PROF SVCS ALLG IMMNTX X W/PRV ALLGIC XTRCS NJXS 2019 12:00:00 AM EST [facility] ([facility]) PROF SVCS ALLG IMMNTX X W/PRV ALLGIC XTRCS NJXS 2019 12:00:00 AM EST [facility] ([facility]) PROF SVCS ALLG IMMNTX X W/PRV ALLGIC XTRCS NJXS 2019 12:00:00 AM EST [facility] ([facility]) PROF SVCS ALLG IMMNTX X W/PRV ALLGIC XTRCS NJXS 2019 12:00:00 AM EST [facility] ([facility]) PROF SVCS ALLG IMMNTX X W/PRV ALLGIC XTRCS NJXS 2019 12:00:00 AM EDT MED[facility] ([facility]) PROF SVCS ALLG IMMNTX X W/PRV ALLGIC XTRCS NJXS 2019 12:00:00 AM EDT [facility] ([facility]) PROF SVCS ALLG IMMNTX X W/PRV ALLGIC XTRCS NJXS 2019 12:00:00 AM EDT MED[facility] ([facility]) PROF SVCS ALLG IMMNTX X W/PRV ALLGIC XTRCS NJXS 2019 12:00:00 AM EDT [facility] ([facility]) PROF SVCS ALLG IMMNTX X W/PRV ALLGIC XTRCS NJXS 2019 12:00:00 AM EDT MED[facility] ([facility]) PROF SVCS ALLG IMMNTX X W/PRV ALLGIC XTRCS NJXS 2019 12:00:00 AM EDT [facility] ([facility]) PROF SVCS ALLG IMMNTX X W/PRV ALLGIC XTRCS NJXS 2019 12:00:00 AM EDT [facility] ([facility]) PROF SVCS ALLG IMMNTX X W/PRV ALLGIC XTRCS NJXS 2019 12:00:00 AM EDT MED[facility] ([facility]) PROF SVCS ALLG IMMNTX X W/PRV ALLGIC XTRCS NJXS 2019 12:00:00 AM EDT MED[facility] ([facility]) Allergy Mixed Antigens 07/04/2020 12:00:00 AM EDT [facility] ([facility]) PROF SVCS ALLG IMMNTX X W/PRV ALLGIC XTRCS NJXS 2019 12:00:00 AM EDT [facility] ([facility]) PROF SVCS ALLG IMMNTX X W/PRV ALLGIC XTRCS NJXS 2019 12:00:00 AM EDT MED[facility] ([facility]) PROF SVCS ALLG IMMNTX X W/PRV ALLGIC XTRCS NJXS 2019 12:00:00 AM EDT MED[facility] ([facility]) PROF SVCS ALLG IMMNTX X W/PRV ALLGIC XTRCS NJXS 2019 12:00:00 AM EDT MED[facility] ([facility]) PROF SVCS ALLG IMMNTX X W/PRV ALLGIC XTRCS NJXS 2019 12:00:00 AM EDT MED[facility] ([facility]) PROF SVCS ALLG IMMNTX X W/PRV ALLGIC XTRCS NJXS 2019 12:00:00 AM EDT MED[facility] ([facility]) PROF SVCS ALLG IMMNTX X W/PRV ALLGIC XTRCS NJXS 2019 12:00:00 AM EDT MED[facility] ([facility]) PROF SVCS ALLG IMMNTX X W/PRV ALLGIC XTRCS NJXS 2019 12:00:00 AM EDT MED[facility] ([facility]) PROF SVCS ALLG IMMNTX X W/PRV ALLGIC XTRCS NJXS 2019 12:00:00 AM EDT MED[facility] ([facility]) PROF SVCS ALLG IMMNTX X W/PRV ALLGIC XTRCS NJXS 2019 12:00:00 AM EDT MED[facility] ([facility]) PROF SVCS ALLG IMMNTX X W/PRV ALLGIC XTRCS NJXS 2019 12:00:00 AM EDT MED[facility] ([facility]) PROF SVCS ALLG IMMNTX X W/PRV ALLGIC XTRCS NJXS 2019 12:00:00 AM EDT MED[facility] ([facility]) PROF SVCS ALLG IMMNTX X W/PRV ALLGIC XTRCS NJXS 2019 12:00:00 AM EDT MED[facility] ([facility]) PROF SVCS ALLG IMMNTX X W/PRV ALLGIC XTRCS NJXS 2019 12:00:00 AM EDT [facility] ([facility]) PROF SVCS ALLG IMMNTX X W/PRV ALLGIC XTRCS NJXS 2019 12:00:00 AM EDT MED[facility] ([facility]) PROF SVCS ALLG IMMNTX X W/PRV ALLGIC XTRCS NJXS 2019 12:00:00 AM EDT MED[facility] ([facility]) PROF SVCS ALLG IMMNTX X W/PRV ALLGIC XTRCS NJXS 2019 12:00:00 AM EDT [facility] ([facility]) PROF SVCS ALLG IMMNTX X W/PRV ALLGIC XTRCS NJXS 2019 12:00:00 AM EDT [facility] ([facility]) PROF SVCS ALLG IMMNTX X W/PRV ALLGIC XTRCS NJXS 2019 12:00:00 AM EDT MED[facility] ([facility]) PROF SVCS ALLG IMMNTX X W/PRV ALLGIC XTRCS NJXS 2019 12:00:00 AM EDT [facility] ([facility]) PROF SVCS ALLG IMMNTX X W/PRV ALLGIC XTRCS NJXS 2019 12:00:00 AM EDT [facility] ([facility]) PROF SVCS ALLG IMMNTX X W/PRV ALLGIC XTRCS NJXS 2019 12:00:00 AM EST [facility] ([facility]) DESTRUCTION BENIGN LESIONS UP TO 14 01/27/2020 12:00:0 0 AM EST [facility] ([facility]) PROF SVCS ALLG IMMNTX X W/PRV ALLGIC XTRCS NJXS 2019 12:00:00 AM EST [facility] ([facility]) PRESSURIZED/NONPRESSURIZED INHALATION TREATMENT 2019 12:00:00 AM EST [facility] ([facility]) PROF SVCS ALLG IMMNTX X W/PRV ALLGIC XTRCS NJXS 2019 12:00:00 AM EST [facility] ([facility]) PROF SVCS ALLG IMMNTX X W/PRV ALLGIC XTRCS NJXS 2019 12:00:00 AM EST [facility] ([facility]) PROF SVCS ALLG IMMNTX X W/PRV ALLGIC XTRCS NJXS 2019 12:00:00 AM EST [facility] ([facility]) PROF SVCS ALLG IMMNTX X W/PRV ALLGIC XTRCS NJXS 2019 12:00:00 AM EST [facility] ([facility]) Allergy Mixed Antigens 12/07/2019 12:00:00 AM EST [facility] ([facility]) PROF SVCS ALLG IMMNTX X W/PRV ALLGIC XTRCS NJXS 2019 12:00:00 AM EST [facility] ([facility]) PROF SVCS ALLG IMMNTX X W/PRV ALLGIC XTRCS NJXS 2019 12:00:00 AM EST [facility] ([facility]) PROF SVCS ALLG IMMNTX X W/PRV ALLGIC XTRCS NJXS 2018 12:00:00 AM EST [facility] ([facility]) PROF SVCS ALLG IMMNTX X W/PRV ALLGIC XTRCS NJXS 2018 12:00:00 AM EST [facility] ([facility]) PROF SVCS ALLG IMMNTX X W/PRV ALLGIC XTRCS NJXS 2018 12:00:00 AM EST [facility] ([facility]) PROF SVCS ALLG IMMNTX X W/PRV ALLGIC XTRCS NJXS 2018 12:00:00 AM EST [facility] ([facility]) PROF SVCS ALLG IMMNTX X W/PRV ALLGIC XTRCS NJXS 2018 12:00:00 AM EST [facility] ([facility]) PROF PAULA ALLG IMMNTX X W/PRV ALLGIC XTRCS NJXS 2018 12:00:00 AM EST [facility] ([facility]) PROF PAULA ALLG IMMNTX X W/PRV ALLGIC XTRCS NJXS 2018 12:00:00 AM EST [facility] ([facility], [facility]) Results ID Date Data Source [id number] 12/31/2019 10:46:00 AM EST [facility] ([facility]) Name Value Range Interpretation Code Description Data Valarie rce(s) Supporting Document(s) Group A Strep Culture Laboratory test result MED[facility] ([facility], [facility]) rx Tamiflu ID Date Data Source [id number] 12/27/2019 08:22:10 AM EST [facility] Current Problems: Fractured dental teri rative material with loss of material (ICD-525.64) (ZWT16-E44.531)DENTAL CARIES EXTENDING INTO DENTINE (ICD-521.02) (NEB37-U26.62)Dental caries (ICD-521.00) (KOY31-J96.9)bronchitis (ICD-466.0) (CXF74-Y19.9)Hypertension (ICD-401.9) (ZNB36-Q22)Current Medications: * ZYRTEC * LISINOPRIL Current Allergies: * SEASONAL (Moderate) Dental Chart: Procedures:Type - CDT Code - Description B - (D2335) Resin, 4 or more surfaces or involving incisal angle (anterior) on Tooth # 9 on Tooth Surface MIFL (Performed by Raysa Ames DDS) Chart Alert:[facility] Prophy 1 per 6 month periodchild through age 12adult 13+next avail- has an apt 02/25/2017Exam 1 per 6 month periodnext avail- has an apt 02/25/2017Fl2 1 per 6 month periodthrough age 20next availBwx 4 films per 6 month periodnext avail- 02/25/2017Panorex 1 every 3 yearsnext avail 08/17/2018fmx taken 08/02/15Sealants every 5 yearsage 5-15pre authorization needed for perio with charting and fmx Chart Notes:elan (Dec 27 2019 9:11AM): [facility](N/C Per Pt.)CC: Sharpness near #9 by palatal gums. No LA . Operative: #9-FMIL Etch placed and rinsed, futurabond placed and light cured, A3.5 Voco grandioso composite material placed and light cured. no caries to excavate area prepped with highspeed and blue football samantha bur. Occlusion checked and polished. POI given to pt. assisted by RADHAMES. No complications. pt. was cooperative. NV: Recall Raysa Ames DDS by elan (12/27/2019 9:11 AM): Tooth Notes and Watches:- Tooth 10 Watch: DistalPetty Riley by rick (10/08/2017 8:18 AM): - Tooth 22 Den tition: changed from Permanent to Primary- Tooth 26 Watch: distalRaysa Ames DDS by elan (10/22/2016 8:22 AM): - Tooth 3 Watch: MesialPetty Riley by rick (10/19/2018 8:08 AM): - Tooth 31 Note: check lingual for decayPetty Riley by elan (10/19/2018 9:06 AM): - Tooth 5 Watch: Jolene Franco by becky (08/01/2015 10:39 AM): - Tooth M Note: Raysa Ames DDS by elan (04/30/2017 9:03 AM): Pt broke off the christian, per Dr Ames hold on extraction (pt denies any discomfort) and we want to hold the space. Petty Riley by rick (04/08/2018 8:32 AM): Name Value Range Interpretation Code Description Data Valarie rce(s) Supporting Document(s) ID Date Data Source [id number] 11/29/2019 09:01:[address] [facility] Current Problems: Fractured dental teri rative material with loss of material (ICD-525.64) ([id number]-D31.531)DENTAL CARIES EXTENDING INTO DENTINE (ICD-521.02) (YMW00-O89.62)Dental caries (ICD-521.00) (ULS44-Z83.9)bronchitis (ICD-466.0) (RUH53-F27.9)Hypertension (ICD-401.9) (NEG53-B30)Current Medications: * ZYRTEC * LISINOPRIL Current Allergies: * SEASONAL (Moderate) Dental Chart: Procedures:Type - CDT Code - Description B - (D0220) Intraoral, periapical, first radiographic image on Tooth # 9 (Performed by Raysa Ames DDS) B - (D0140) Limited oral evaluation - problem focused on Tooth # 9 (Performed by Raysa Ames DDS) Treatments:Type - CDT Code - Description T - (D2335) Resin, 4 or more surfaces or involving incisal angle (anterior) on Tooth # 9 on Tooth Surface MIFL (Performed by Raysa Ames DDS) Chart Alert:[facility] Prophy 1 per 6 month periodchild through age 12adult 13+next avail- has an apt 02/25/2017Exam 1 per 6 month periodnext avail- has an apt 02/25/2017Fl2 1 per 6 month periodthrough age 20next availBwx 4 films per 6 month periodnext avail- 02/25/2017Panorex 1 every 3 yearsnext avail 08/17/2018fmx taken 08/02/15Sealants every 5 yearsage 5-15pre authorization needed for perio with charting and fmx Chart Notes:elan (Nov 29 2019 9:23AM): S: CC: "I broke my front tooth a few weeks ago when I was eating some steak. It is not bothering me, but I want to get it looked at before it does."O: RMHx (-)per pt. HPI: a few weeks PL: 0.BP: 122/85. PA taken of #9. #9 has lost restorative material. No signs of infection., No pain. A: DDS recommends to have #9-MFIL to be restored. DX:#9-MFIL lost christian. P: Scheduled christian appt.. Informed Pt about new pain management policy of the clinic regarding about narcotic,told pt to alternate Ibuprophen 600- 800mg and tylenol 500mg every 4 to 6 hrs for pain when neededAssisted By:AM.NV: christian for one hour.Raysa Ames DDS by elan (11/29/2019 9:23 AM): Tooth Notes and Watches:- Tooth 10 Watch: DistalPetty Riley by rick (10/08/2017 8:18 AM): - Tooth 22 Dentition: changed from Permanent to Primary- Tooth 26 Watch: Raysa Cortes DDS by elan (10/22/2016 8:22 AM): - Tooth 3 Watch: MesialPetty Riley (10/19/2018 8:08 AM): - Tooth 31 Note: check lingual for decayPetty Riley by elan (10/19/2018 9:06 AM): - Tooth 5 Watch: D Jolene Horton by becky (08/01/2015 10:39 AM): - Tooth M Note: Ryasa Ames DDS by elan (04/30/2017 9:03 AM): Pt broke off the christian, per Dr Ames hold on extraction (pt denies any discomfort) and we want to hold the space. Petty Riley by rick (04/08/2018 8:32 AM): Assessment & Plan Problems:Added: Fractured dental restorative material with loss of material (ICD-525.64) (XQE54-T74.531)Medications:ZYRTECLISINOPRILAllergies:* SEASONAL (Moderate) Name Value Range Interpretation Code Description Data Valarie rce(s) Supporting Document(s) Procedure Social History Code Duration Value Status Description Data Source(s ) Smoking 10/11/2020 12:00:00 AM EST Patient is a former smoker completed Patient is a former smoker [facility] ([facility]) Smoking 07/23/2020 12:00:00 AM EDT Patient is a former smoker completed Patient is a former smoker [facility] ([facility], [facility]) Vital Signs ID Date Data Source UNK Name Value Range Interpretation Code Description Data Source(s) Body mass index (BMI) [Ratio] 36.6 kg/m2 36.6 k g/m2 [facility] ([facility]) Oxygen saturation in Arterial blood by Pulse oximetry 99 % 99 % [facility] ([facility]) Body weight 255.12 [lb_av] 255.12 [lb_av] MEDEN T ([facility]) Body height 70 [in_i] 70 [in_i] [facility] 5'10" Diastolic blood pressure 86 mm[Hg] 86 mm[Hg] [facility] ([facility]) Systolic blood pressure 144 mm[Hg] 144 mm[Hg] M EDENT ([facility]) Heart rate 53 /min 53 /min [facility] Respiratory rate 18 /min 18 /min [facility] ( [facility]) Body mass index (BMI) [Ratio] 36.6 kg/m2 36.6 k g/m2 [facility] ([facility], [facility]) Body height 70 [in_i] 70 [in_i] [facility] ([facility]) 5'10" Body weight 255.00 [lb_av] 255.00 [lb_av] MEDEN T ([facility], [facility]) Body temperature 99.4 [degF] 99.4 [degF] MED[facility] ([facility], [facility]) Oxygen saturation in Arterial blood by Pulse oximetry 98 % 98 % [facility] ([facility], [facility]) Respiratory rate 16 /min 16 /min [facility] ( [facility]) Heart rate 61 /min 61 /min [facility] ([facility], [facility]) Diastolic blood pressure 91 mm[Hg] 91 mm[Hg] [facility] ([facility], [facility]) Systolic blood pressure 141 mm[Hg] 141 mm[Hg] M EDENT ([facility], [facility]) Body mass index (BMI) [Ratio] 35.1 kg/m2 35.1 k g/m2 [facility] ([facility], [facility]) Body height 70 [in_i] 70 [in_i] MED[facility] ([facility]) 5'10" Body weight 245.00 [lb_av] 245.00 [lb_av] MEDEN T ([facility], [facility]) Body temperature 98.8 [degF] 98.8 [degF] MEDENT ([facility]) Oxygen saturation in Arterial blood by Pulse oximetry 98 % 98 % [facility] ([facility], [facility]) Respiratory rate 20 /min 20 /min MED[facility] ( [facility], [facility]) Heart rate 71 /min 71 /min [facility] ([facility]) Diastolic blood pressure 90 mm[Hg] 90 mm[Hg] [facility] ([facility], [facility]) Systolic blood pressure 155 mm[Hg] 155 mm[Hg] M EDENT ([facility], [facility]) Body mass index (BMI) [Ratio] 36.4 kg/m2 36.4 k g/m2 [facility] ([facility]) Body temperature 96.7 [degF] 96.7 [degF] [facility] ([facility]) Body weight 254.00 [lb_av] 254.00 [lb_av] MEDEN T ([facility]) Body height 70 [in_i] 70 [in_i] [facility] 5'10" Heart rate 78 /min 78 /min [facility] ([facility] Diastolic blood pressure 96 mm[Hg] 96 mm[Hg] [facility] ([facility] Systolic blood pressure 130 mm[Hg] 130 mm[Hg] M EDENT ([facility] Body mass index (BMI) [Ratio] 35.9 kg/m2 35.9 k g/m2 [facility] ([facility] Body weight 250.00 [lb_av] 250.00 [lb_av] MEDEN T ([facility] Body height 70 [in_i] 70 [in_i] [facility] ([facility] 5'10" Oxygen saturation in Arterial blood by Pulse oximetry 97 % 97 % [facility] ([facility] Body mass index (BMI) [Ratio] 35.1 kg/m2 35.1 k g/m2 [facility] ([facility]) Body height 70 [in_i] 70 [in_i] MED[facility] ([facility], [facility]) 5'10" Body weight 245.00 [lb_av] 245.00 [lb_av] MEDEN T ([facility], [facility]) Body temperature 97.3 [degF] 97.3 [degF] MED[facility] ([facility], [facility]) Oxygen saturation in Arterial blood by Pulse oximetry 99 % 99 % [facility] ([facility], [facility]) Respiratory rate 16 /min 16 /min MED[facility] ( [facility], [facility]) Heart rate 67 /min 67 /min [facility] ([facility], [facility]) Diastolic blood pressure 102 mm[Hg] 102 mm[Hg] MED[facility] ([facility], [facility]) Systolic blood pressure 192 mm[Hg] 192 mm[Hg] M EDENT ([facility], [facility]) Body mass index (BMI) [Ratio] 35.1 kg/m2 35.1 k g/m2 [facility] ([facility], [facility]) Body height 70 [in_i] 70 [in_i] MED[facility] ([facility]) 5'10" Body weight 245.00 [lb_av] 245.00 [lb_av] MEDEN T ([facility], [facility]) Body temperature 99.4 [degF] 99.4 [degF] MEDENT ([facility], [facility]) Oxygen saturation in Arterial blood by Pulse oximetry 99 % 99 % MED[facility] ([facility], [facility]) Respiratory rate 18 /min 18 /min MED[facility] ( [facility], [facility]) Heart rate 70 /min 70 /min [facility] ([facility]) Diastolic blood pressure 92 mm[Hg] 92 mm[Hg] MED[facility] ([facility], [facility]) Systolic blood pressure 156 mm[Hg] 156 mm[Hg] M EDENT ([facility], [facility]) Body mass index (BMI) [Ratio] 35.1 kg/m2 35.1 k g/m2 [facility] ([facility], [facility]) Body height 70 [in_i] 70 [in_i] [facility] ([facility]) 5'10" Body weight 245.00 [lb_av] 245.00 [lb_av] MEDEN T ([facility], [facility]) Body temperature 99.0 [degF] 99.0 [degF] MEDENT ([facility], [facility]) Oxygen saturation in Arterial blood by Pulse oximetry 97 % 97 % [facility] ([facility]) Respiratory rate 14 /min 14 /min MED[facility] ( [facility], [facility]) Heart rate 76 /min 76 /min [facility] ([facility]) Diastolic blood pressure 100 mm[Hg] 100 mm[Hg] MED[facility] ([facility], [facility]) Systolic blood pressure 148 mm[Hg] 148 mm[facility]Hg] [facility] Body mass index (BMI) [Ratio] 35.1 kg/m2 35.1 k g/m2 [facility] ([facility], [facility]) Body height 70 [in_i] 70 [in_i] MED[facility] ([facility]) 5'10" Body weight 245.00 [lb_av] 245.00 [lb_av] MEDEN T ([facility], [facility]) Body temperature 98.9 [degF] 98.9 [degF] MED[facility] ([facility]) Oxygen saturation in Arterial blood by Pulse oximetry 97 % 97 % [facility] ([facility], [facility]) Respiratory rate 17 /min 17 /min [facility] ( [facility]) Heart rate 108 /min 108 /min [facility] ([facility]) Diastolic blood pressure 97 mm[Hg] 97 mm[Hg] [facility] ([facility]) Systolic blood pressure 152 mm[Hg] 152 mm[Hg] M EDENT ([facility], [facility]) Body mass index (BMI) [Ratio] 35.1 kg/m2 35.1 k g/m2 [facility] ([facility]) Body height 70 [in_i] 70 [in_i] MED[facility] ([facility], [facility]) 5'10" Body weight 245.00 [lb_av] 245.00 [lb_av] MEDEN T ([facility], [facility]) Body temperature 98.8 [degF] 98.8 [degF] [facility] ([facility]) Oxygen saturation in Arterial blood by Pulse oximetry 95 % 95 % [facility] ([facility]) Respiratory rate 16 /min 16 /min [facility] ( [facility]) Heart rate 68 /min 68 /min [facility] ([facility]) Diastolic blood pressure 95 mm[Hg] 95 mm[Hg] [facility] ([facility]) Systolic blood pressure 148 mm[Hg] 148 mm[Hg] M EDENT ([facility]) Body mass index (BMI) [Ratio] 36.3 kg/m2 36.3 k g/m2 [facility] ([facility]) Oxygen saturation in Arterial blood by Pulse oximetry 98 % 98 % [facility] ([facility]) Body weight 253.12 [lb_av] 253.12 [lb_av] MEDEN T ([facility]) Body height 70 [in_i] 70 [in_i] [facility] ([facility] 5'10" Diastolic blood pressure 90 mm[Hg] 90 mm[Hg] [facility] ([facility]) Systolic blood pressure 138 mm[Hg] 138 mm[Hg] M EDENT ([facility]) Heart rate 69 /min 69 /min [facility] ([facility] Respiratory rate 14 /min 14 /min [facility] ( [facility])
[2020-12-07 14:26] VITALS: BP 150/90
== END 2020-12-07 14:24 | disposition home or self-care (01) ==
LOC: M ED 12:21
DX: N23 Unspecified renal colic (principal); I10 Essential (primary) hypertension; E78.5 Hyperlipidemia, unspecified; Z87.442 Personal history of urinary calculi; K21.9 Gastro-esophageal reflux disease without esophagitis; N28.1 Cyst of kidney, acquired; F17.220 Nicotine dependence, chewing tobacco, uncomplicated; Z79.899 Other long term (current) drug therapy

== ENCOUNTER → 2020-12-31 | Outpatient (REF) | payer OTHER ==
[~2020-12-31] MED LIST changes: +AMLO1TAB25; +ATOR1TAB19; +FAMO1TAB11; +METO1TAB33; +ONDA4TAB6; +TAMS1CAP17; +TRAM50TA2
[2020-12-31 19:23] LABS: APPEARANCE, URINE CLOUDY (CLEAR); BACTERIA, URINE AUTO NEGATIVE (NEGATIVE); BILIRUBIN, URINE AUTO NEGATIVE (NEGATIVE); BLOOD, URINE BLOOD NEGATIVE (NEGATIVE); COLOR, URINE YELLOW (YELLOW); GLUCOSE, URINE (UA) AUTO NEGATIVE (NEGATIVE); KETONE, URINE AUTO NEGATIVE (NEGATIVE); LEUKOCYTE ESTERASE, URINE AUTO NEGATIVE (NEGATIVE); NITRITE, URINE AUTO NEGATIVE (NEGATIVE); PROTEIN, URINE AUTO NEGATIVE (NEGATIVE); RBC, URINE AUTO 0 /HPF (0-3); SPECIFIC GRAVITY URINE AUTO 1.017 (1.002-1.035); SQUAMOUS EPITHELIAL CELL UR AU 0 /HPF (0-6); UROBILINOGEN, URINE AUTO 0.2 mg/dL (0.0-2.0); WBC, URINE AUTO 0 /HPF (0-3)
== END ==
LOC: M SMT 17:03
PROVIDERS: ATTEND Nurse Practitioner Women's Health
DX: N20.1 Calculus of ureter (principal)

== ENCOUNTER → 2021-02-11 | Outpatient (CLI) | payer OTHER ==
--- NOTE | 2021-02-13 01:20 | ECWPNPC ---
PATIENT NAME: TYE OSULLIVAN : 1965 GENDER: MALE VISIT DATE: 02/11/2021 DISCHARGE DATE: 02/11/21 0946 VISIT LOCKED DATE TIME: PHYSICIAN: APOLINAR CELIS RESOURCE: APOLINAR CELIS REASON FOR APPOINTMENT 1. CHRONIC BACK PAIN HISTORY OF PRESENT ILLNESS DEPRESSION SCREENING: PHQ-2 (2015 EDITION) LITTLE INTEREST OR PLEASURE IN DOING THINGS?NOT AT ALL FEELING DOWN, DEPRESSED, OR HOPELESS?NOT AT ALL TOTAL SCORE0 55-YEAR-OLD MALE IN FOR INITIAL PAIN CONSULT REGARDING LOW BACK PAIN. HE RATES HIS PAIN CURRENTLY AT A 4 OUT OF 10 AND DESCRIBES IT ACHING, AND CONTINUOUS. HE STATES THE LOW BACK PAIN HAS BEEN PRESENT FOR SEVERAL YEARS. HE IS CURRENTLY TAKING GABAPENTIN WHICH HE ADMITS IS HELPFUL HOWEVER HE WISHES IT WOULD LAST LONGER THROUGHOUT THE NIGHT. GENERAL: - - -. FALL RISK SCREENING: SCREENING : NO FALLS REPORTED IN THE LAST YEAR , : NO FALLS REPORTED IN THE LAST YEAR. PAIN SCREENING: PATIENT HAS A COMPLAINT OF ACUTE OR CHRONIC PAIN :YES LOCATION OF PAIN:LOW BACK INTENSITY OF PAIN (SCALE OF 1 TO 10):4 WHAT DOES YOUR PAIN FEEL LIKE:ACHING, CONTINOUS DURATION:CONTINOUS, CONSTANT, STEADY PAIN IS INCREASED BY:ACTIVITIES, PROLONGED STANDING PAIN IS DECREASED BY:USE OF PAIN MEDICATIONS, OTHERS HEAT NURSING NOTE: - - -. PAIN CENTER INTAKE QUESTIONS: DO YOU HAVE A HISTORY OF MRSA? :YES DO YOU TAKE A BLOOD THINNERS? :NO DO YOU HAVE ANY BLEEDING DISORDERS? :NO ANY NEW NUMBNESS OR WEAKNESS IN YOUR LEGS OR ARMS? :NO ANY PACEMAKER,DEFIBRILLATOR, OR DORSAL COLUMN STIMULATOR? :NO DO YOU HAVE ANY RASHES OR OPEN SORES? :NO ARE YOU ALLERGIC TO IV DYE? :NO ARE YOU DIABETIC? :NO ANY NEW PROBLEMS WITH YOUR MEDICATIONS? :NO HAVE YOU RECEIVED A VACCINE IN THE PAST 30 DAYS? :YES IF SO WHAT VACCINE AND WHEN? ALLERGY SHOTS DO YOU PLAN TO RECEIVE A VACCINE IN THE NEXT 21 DAYS? :YES IF SO WHAT VACCINE AND WHEN? ALLERGY SHOTS DO YOU NEED ANY PRESCRIPTION? :NO DO YOU TAKE ANY IMMUNOSUPPRESSIVE MEDICATIONS? :NO CURRENT MEDICATIONS TAKING GABAPENTIN 300 MG CAPSULE 1 CAPSULE ORALLY THREE TIMES DAILY TAKING ATORVASTATIN CALCIUM 10 MG TABLET 1 TABLET ORALLY ONCE A DAY TAKING LISINOPRIL 40 MG TABLET 1 TABLET ORALLY ONCE A DAY TAKING MONTELUKAST SODIUM 10 MG TABLET 1 TABLET ORALLY ONCE A DAY TAKING OMEPRAZOLE 40 MG CAPSULE DELAYED RELEASE 1 CAPSULE ORALLY ONCE A DAY TAKING CETIRIZINE HCL 10 MG TABLET 1 TABLET ORALLY ONCE A DAY TAKING FLUTICASONE PROPIONATE 50 MCG/ACT SUSPENSION 1 SPRAY IN EACH NOSTRIL NASALLY ONCE A DAY TAKING AMLODIPINE BESYLATE 5 MG TABLET 1 TABLET ORALLY ONCE A DAY TAKING FAMOTIDINE 20 MG TABLET 1 TABLET AT BEDTIME NEEDED ORALLY ONCE A DAY TAKING METOPROLOL SUCCINATE 100 MG CAPSULE ER 24 HOUR SPRINKLE 1 CAPSULE ORALLY ONCE A DAY NOT-TAKING KETOROLAC TROMETHAMINE 10 MG TABLET 1 TABLET WITH FOOD OR MILK NEEDED ORALLY EVERY 6 HRS MEDICATION LIST REVIEWED AND RECONCILED WITH THE PATIENT PAST MEDICAL HISTORY KIDNEY STONE HTN CHRONIC BACK PAIN GERD HYPERLIPIDEMIA MIGRAINE ALLERGIC RHINITIS SLEEP APNEA ALLERGIES SEASONAL: CONGESTION SURGICAL HISTORY CYST REMOVAL A CHILD HERNIA REPAIR 2018 PILONIDAL CYSTECTOMY 06/2018 PILONIDAL CYSTECTOMY 11/2020 FAMILY HISTORY FATHER: MOTHER: ALIVE, DIAGNOSED WITH HYPERTENSION, DIABETES 2 BROTHER(S) , 3 SISTER(S) - HEALTHY. 2 SON(S) , 2 DAUGHTER(S) - HEALTHY. DENIES FAMILY HX OF PANCREATIC CANCER OR MELANOMAMOTHER HAS CHF, HTN, DIABETES. SOCIAL HISTORY GENERAL: TOBACCO USE ARE YOU A:FORMER SMOKER HOW LONG HAS IT BEEN SINCE YOU LAST SMOKED?> 10 YEARS LATEX QUESTIONNAIRE LATEX ALLERGY : HAVE YOU EVER DEVELOPED ANY TYPE OF REACTION AFTER HANDLING LATEX PRODUCTS SUCH RUBBER GLOVES, CONDOMS, DIAPHRAGMS, BALLOONS, SOCKS, OR UNDERWEAR?NO LATEX ALLERGY : HAVE YOU EVER DEVELOPED ANY TYPE OF REACTION DURING OR AFTER DENTAL APPOINTMENT, VAGINAL/RECTAL EXAMINATION, SURGICAL PROCEDURE, OR ANY OTHER EXPOSURE?NO LATEX RISK : HAVE YOU EVER HAD ANY DIFFICULTY BREATHING OR HIVES AFTER EATING OR HANDLING ANY FRUITS, OR VEGETABLES; SUCH KIWI, BANANAS, STONE FRUITS, OR CHESTNUTSNO LATEX RISK : DO YOU HAVE A PREVIOUS PERSONAL HISTORY OF MORE THAN NINE SURGERIES, SPINA BIFIDA, OR REPEATED CATHERIZATIONS? NO LATEX RISK : ARE YOU FREQUENTLY EXPOSED TO LATEX PRODUCTS IN YOUR OCCUPATION?NO DATE ASKED : 02/11/2021 ALCOHOL USE: YES, OCCASIONAL. ALCOHOL SCREENING DID YOU HAVE A DRINK CONTAINING ALCOHOL IN THE PAST YEAR?YES HOW OFTEN DID YOU HAVE SIX OR MORE DRINKS ON ONE OCCASION IN THE PAST YEAR?NEVER (0 POINTS) HOW MANY DRINKS DID YOU HAVE ON A TYPICAL DAY WHEN YOU WERE DRINKING IN THE PAST YEAR?1 OR 2 (0 POINTS) HOW OFTEN DID YOU HAVE A DRINK CONTAINING ALCOHOL IN THE PAST YEAR?MONTHLY OR LESS (1 POINT) POINTS1 INTERPRETATIONNEGATIVE RECREATIONAL DRUG USE DRUG USE?NO CAFFEINE CAFFEINE USE?YES 2 CUP DAILY SEXUAL HX HAD SEX IN THE LAST 12 MONTHS (VAGINAL, ORAL, OR ANAL)?YES WITHWOMEN ONLY PREVENTION STRATEGIES DISCUSSED:OTHER USE PROTECTION?NO HAVE YOU EVER HAD AN STD?NO HINDUISM HINDUISM NO ADVENTISM BELIEFS THAT WOULD IMPACT HEALTH CARE. LANGUAGE LANGUAGES SPOKEN:BELARUSIAN LEARNING BARRIERS / SPECIAL NEEDS CHANGE FROM LAST VISIT?NO BARRIERS TO LEARNING?NO HEARING IMPAIRED?NO VISION IMPAIRED?YES :CORRECTIVE LENSES COGNITIVELY IMPAIRED?NO READINESS TO LEARN?YES LEARNING PREFERENCES?NO LEARNING CAPABILITIES PRESENT?YES EMOTIONAL BARRIERS?NO SPECIAL DEVICES?NO BOILER OR ENGINE OPERATOR NEEDED?NO OCCUPATION: [employer]. DIET: REGULAR. EXERCISE: NO REGULAR EXERCISE. MARITAL STATUS: . HOSPITALIZATION/MAJOR DIAGNOSTIC PROCEDURE SURGICAL REVIEW OF SYSTEMS CONSTITUTIONAL: ANY RECENT FEVER NO . CHILLS NO . WEIGHT CHANGE OF UNKNOWN REASONS NO . MUSCULOSKELETAL: ANY UNUSUAL JOINT PAIN OR SWELLING NOT MENTIONED NO . SYSTEMIC LUPUS NO . ANY NEUROMUSCULAR DISORDER NOT MENTIONED NO . LYME DISEASE NO . GASTROENTEROLOGY: ANY NEW CHANGE IN BOWEL CONTROL? NO . HISTORY OF LIVER DISORDER NOT MENTIONED NO . HISTORY OF UNUSUAL ABDOMINAL PAIN OR CRAMPING NOT MENTIONED NO . NO CONSTIPATION. GENITOURINARY: ANY NEW CHANGE IN BLADDER CONTROL? NO . ANY RENAL/KIDNEY CONDITON NOT MENTIONED NO . NEUROLOGY: HISTORY OF TBI NOT MENTIONED NO . OTHER NEW NUMBNESS OR PAIN PATTERNS NOT MENTIONED NO . NEW ONSET DIZZINESS OR NEUROLOGICAL CHANGES NOT MENTIONED NO . HISTORY OF SEVERE HEADACHES NOT MENTIONED NO . HISTORY OF STROKE OR NEUROLOGICAL DISORDER NOT MENTIONED NO . CARDIOLOGY: HEART SURGERY NO . CONGESTIVE HEART FAILURE/FLUID OVERLOAD NOT MENTIONED NO . HISTORY OF CHEST PAIN,IRREGULAR HEART BEAT NOT MENTIONED NO . RESPIRATORY: SHORTNESS OF BREATH ON EXERTION, WHEEZES, UNUSUAL COUGH NOT MENTIONED NO . ENDOCRINOLOGY: ADRENAL GLAND OR THYROID DISORDERS NOT MENTIONED NO . UNUSUAL URINATION, DIZZINESS OR LETHARGY NOT MENTIONED NO . VITAL SIGNS WT 253.6 LBS, HT 70 IN, BMI 36.38 INDEX, BP 135/85 MM HG, HR 56 /MIN, RR 20 /MIN, TEMP 98.5 F, OXYGEN SAT % 99%, SAFE IN ENV? (Y/N) YES, REVIEWED BY: ROC CHIRINOS MA. EXAMINATION GENERAL EXAMINATION: GENERALNO ACUTE DISTRESS, WELL NOURISHED AND HYDRATED. PSYCHAPPROPRIATE MOOD AND AFFECT . LUNGS:CLEAR TO AUSCULTATION BILATERALLY, NO WHEEZES, RHONCHI, RALES. HEART:NO MURMURS, REGULAR RATE AND RHYTHM. BACK:DENIES POINT TENDERNESS ALONG LUMBAR SPINE, SURROUNDING SKIN SHOWS NO ERYTHEMA, ECCHYMOSIS, INCREASED WARMTH, AND/OR SKIN ERUPTIONS NOTED. POSITIVE MODIFIED SLR RIGHT SIDE . MUSCULOSKELETAL:EQUAL STRENGTH OF THE LOWER EXTREMITIES BILATERALLY . ASSESSMENTS LOW BACK PAIN - M54.5 (PRIMARY) TREATMENT LOW BACK PAIN INCREASE GABAPENTIN CAPSULE, 400 MG, 1 CAPSULE, ORALLY, THREE TIMES DAILY, 30 DAYS, 90 [facility] MRI SPINE, L.S. WITHOUT [id number] NOTES: 55-YEAR-OLD MALE IN FOR INITIAL PAIN CONSULT REGARDING LOW BACK PAIN. WHEN ASKED PATIENT ADMITS THAT HE HAS NOT HAD AN MRI IN SEVERAL YEARS. GIVEN PRESENTING SYMPTOMS AND RESULTS OF PHYSICAL EXAMINATION RECOMMENDED INCREASING GABAPENTIN TO 400 MG 3 TIMES A DAY AND OBTAINING AN MRI FOR FURTHER EVALUATION. PATIENT HAS EXPRESSED UNDERSTANDING OF AND WAS IN AGREEMENT WITH TREATMENT PLAN. GIVEN TIME TO ASK QUESTIONS AND EXPRESS CONCERNS. PROCEDURE CODES FA211 ESTABILISHED PATIENT [facility] CHARGE DISPOSITION & COMMUNICATION FOLLOW UP POST IMAGING (REASON: MRI LUMBAR SPINE WITHOUT CONTRAST) ELECTRONICALLY SIGNED BY YUE OSORIO ON 02/12/2021 AT 08:34 AM EDT DISCLAIMER : THIS IS A VISIT SUMMARY EXTRACTED FROM THE [employer] CHART. IT IS NOT A COPY OF THE [employer] PROGRESS NOTE. ERICA
== END ==
LOC: M PAIN 08:30
PROVIDERS: ATTEND Family Medicine
DX: M54.5 Low back pain (principal); I10 Essential (primary) hypertension; K21.9 Gastro-esophageal reflux disease without esophagitis; E78.5 Hyperlipidemia, unspecified; G43.909 Migraine, unspecified, not intractable, without status migrainosus; G47.30 Sleep apnea, unspecified; J30.2 Other seasonal allergic rhinitis; Z87.891 Personal history of nicotine dependence; Z79.899 Other long term (current) drug therapy

== ENCOUNTER → 2021-03-17 | Outpatient (CLI) | payer OTHER | LOC: M LABSMTC 09:08 | PROVIDERS: ATTEND Anesthesiology | DX: Z01.812 Encounter for preprocedural laboratory examination (principal); Z11.52 Encounter for screening for COVID-19 ==

== ENCOUNTER 2021-03-22 10:12 | Day surgery (SDC) | payer OTHER ==
[~2021-03-22] VITALS: Ht 177.8 cm; Wt 112.4 kg
[~2021-03-22 10:12] MED LIST changes: -AMLO1TAB25; +AMLO1TAB25 PO; +AUGM875T28 PO; -FAMO1TAB11; +FAMO1TAB11 PO; +GABA-845 PO; +LISI40TA4; +NS 1,000 ML IV ONE
--- NOTE | 2021-03-22 11:36 | ROOR ---
Patient Name: Alonzo Gibson Procedure Date: 03/22/2021 11:11 AM Date of : 1965 Age: 55 Room: [facility] Gender: Male Note Status: Finalized Procedure: Colonoscopy Indications: High risk colon cancer surveillance: Personal history of colonic polyps, Last colonoscopy: November 2015 Providers: Kobe SOLIS MD Referring MD: MEGAN Maldonado Requesting Provider: Medicines: Monitored Anesthesia Care Complications: No immediate complications. Procedure: Pre-Anesthesia Assessment: - The heart rate, respiratory rate, oxygen saturations, blood pressure, adequacy of pulmonary ventilation, and response to care were monitored throughout the procedure. The Colonoscope was introduced through the anus and advanced to the terminal ileum, with identification of the appendiceal orifice and IC valve. The colonoscopy was performed without difficulty. The patient tolerated the procedure well. The quality of the bowel preparation was good. Findings: The perianal and digital rectal examinations were normal. Two sessile polyps were found in the proximal transverse colon. The polyps were 4 to 5 mm in size. These polyps were removed with a cold snare. Resection and retrieval were complete. Mild sigmoid diverticulosis and small internal hemorrhoids. The exam was otherwise without abnormality on direct and retroflexion views. Impression: - Two 4 to 5 mm polyps in the proximal transverse colon, removed with a cold snare. Resected and retrieved. - Mild sigmoid diverticulosis and small internal hemorrhoids. - The examination was otherwise normal on direct and retroflexion views. Recommendation: - Repeat colonoscopy in 5 years for surveillance. Procedure Code(s): --- Professional --- 03580, Colonoscopy, flexible; with removal of tumor(s), polyp(s), or other lesion(s) by snare technique Diagnosis Code(s): --- Professional --- K63.5, Polyp of colon Z86.010, Personal history of colonic polyps CPT copyright 2019 [employer]. All rights reserved. The codes documented in this report are preliminary and upon information systems administrator review may be revised to meet current compliance requirements. Kobe Solis MD Kobe SOLIS MD 03/22/2021 11:36:07 AM Electronically signed by Kobe SOLIS MD Number of Addenda: 0 Note Initiated On: 03/22/2021 11:11 AM Estimated Blood Loss: Estimated blood loss: none.
[2021-03-22 11:58] VITALS: BP 126/79
[2021-03-22] MEDS ORDERED: LIDOCAINE 2% 100MG/5ML SDV (FOR ANES.) As Ordered ONE (11:58)
[2021-03-22] MEDS ORDERED: propofoL 200 MG/20 ML VIAL As Ordered ONE (11:58)
== END 2021-03-22 12:00 | disposition home or self-care (01) ==
LOC: M OPP 10:12
PROVIDERS: ATTEND Internal Medicine Gastroenterology
DX: Z12.11 Encounter for screening for malignant neoplasm of colon (principal); Z86.010 Personal history of colon polyps; Z80.0 Family history of malignant neoplasm of digestive organs; D12.3 Benign neoplasm of transverse colon; D12.5 Benign neoplasm of sigmoid colon; K57.30 Diverticulosis of large intestine without perforation or abscess without bleeding; K64.8 Other hemorrhoids; K21.9 Gastro-esophageal reflux disease without esophagitis

== ENCOUNTER → 2021-04-24 | Outpatient (CLI) | payer OTHER ==
[~2021-04-24] MED LIST changes: +GABA-283 PO; -GABA-845 PO; -NS 1,000 ML IV ONE
--- NOTE | 2021-04-24 14:50 | REPVR ---
PROCEDURE INFORMATION: Exam: MR Lumbar Spine Without Contrast. Exam date and time: 04/24/2021 11:44 AM Age: 55 years old Clinical indication: Low back pain TECHNIQUE: Imaging protocol: Multiplanar magnetic resonance images of the lumbar spine without contrast. COMPARISON: No relevant prior studies available. FINDINGS: Normal lumbar lordosis. Alignment anatomic. Bone marrow signal normal. No MR evidence of acute fracture, dislocation or subluxation. Vertebral body heights maintained. Conus terminates at approximately the L1 level. No abnormal signal within the visualized spinal cord. No fluid collection or soft tissue mass. Disc desiccation at L5-S1. Mild multilevel spondylosis, characterized by disc space narrowing, osteophytosis, shallow disc bulges and facet/ligamentous hypertrophy, most pronounced at L5-S1, where there is moderate bilateral neural foraminal narrowing and probable mass effect on the exiting bilateral L4 nerve roots. IMPRESSION: Multilevel degenerative disc disease, most pronounced at L5-S1, as described above. Electronically signed by: Wilfredo Geiger On 04/24/2021 14:49:41 PM
== END ==
LOC: M PLARAD 11:00
PROVIDERS: ATTEND Family Medicine
DX: M51.37 Other intervertebral disc degeneration, lumbosacral region (principal); M54.5 Low back pain

== ENCOUNTER → 2021-05-16 | Outpatient (CLI) | payer OTHER ==
[~2021-05-16] MED LIST changes: +OMEP40CA4 PO; -OMEP40CA97 PO
--- NOTE | 2021-05-18 03:51 | ECWPNPC ---
PATIENT NAME: TYE OSULLIVAN : 1965 GENDER: MALE VISIT DATE: 05/16/2021 DISCHARGE DATE: 05/16/21 1034 VISIT LOCKED DATE TIME: PHYSICIAN: APOLINAR CELIS RESOURCE: APOLINAR CELIS REASON FOR APPOINTMENT 1. MRI REVIEW HISTORY OF PRESENT ILLNESS GENERAL: HPI 55-YEAR-OLD MALE IN FOR CHRONIC PAIN FOLLOW-UP. HE RATES HIS PAIN CURRENTLY A 3 OUT OF 10 AND DESCRIBES IT ACHING AND CONTINUOUS. PATIENT HAD MRI PERFORMED RECENTLY WHICH WILL BE REVIEWED WITH PATIENT TODAY.. -. FALL RISK SCREENING: SCREENING : NO FALLS REPORTED IN THE LAST YEAR. PAIN SCREENING: PATIENT HAS A COMPLAINT OF ACUTE OR CHRONIC PAIN :YES LOCATION OF PAIN:LOW BACK INTENSITY OF PAIN (SCALE OF 1 TO 10):3 WHAT DOES YOUR PAIN FEEL LIKE:ACHING, CONTINOUS DURATION:CONTINOUS, TRANSIENT PAIN IS INCREASED BY:ACTIVITIES, PROLONGED STANDING PAIN IS DECREASED BY:SITTING NURSING NOTE: -. PAIN CENTER INTAKE QUESTIONS: DO YOU HAVE A HISTORY OF MRSA? :YES DO YOU TAKE A BLOOD THINNERS? :NO DO YOU HAVE ANY BLEEDING DISORDERS? :NO ANY NEW NUMBNESS OR WEAKNESS IN YOUR LEGS OR ARMS? :NO ANY PACEMAKER,DEFIBRILLATOR, OR DORSAL COLUMN STIMULATOR? :NO DO YOU HAVE ANY RASHES OR OPEN SORES? :NO ARE YOU ALLERGIC TO IV DYE? :NO ARE YOU DIABETIC? :NO ANY NEW PROBLEMS WITH YOUR MEDICATIONS? :NO HAVE YOU RECEIVED A VACCINE IN THE PAST 30 DAYS? :YES IF SO WHAT VACCINE AND WHEN? ALLERGY SHOTS DO YOU PLAN TO RECEIVE A VACCINE IN THE NEXT 21 DAYS? :YES IF SO WHAT VACCINE AND WHEN? ALLERGY SHOTS DO YOU NEED ANY PRESCRIPTION? :NO DO YOU TAKE ANY IMMUNOSUPPRESSIVE MEDICATIONS? :NO CURRENT MEDICATIONS TAKING ATORVASTATIN CALCIUM 10 MG TABLET 1 TABLET ORALLY ONCE A DAY TAKING LISINOPRIL 40 MG TABLET 1 TABLET ORALLY ONCE A DAY TAKING MONTELUKAST SODIUM 10 MG TABLET 1 TABLET ORALLY ONCE A DAY TAKING OMEPRAZOLE 40 MG CAPSULE DELAYED RELEASE 1 CAPSULE ORALLY ONCE A DAY TAKING CETIRIZINE HCL 10 MG TABLET 1 TABLET ORALLY ONCE A DAY TAKING FLUTICASONE PROPIONATE 50 MCG/ACT SUSPENSION 1 SPRAY IN EACH NOSTRIL NASALLY ONCE A DAY TAKING AMLODIPINE BESYLATE 5 MG TABLET 1 TABLET ORALLY ONCE A DAY TAKING FAMOTIDINE 20 MG TABLET 1 TABLET AT BEDTIME NEEDED ORALLY ONCE A DAY TAKING METOPROLOL SUCCINATE 100 MG CAPSULE ER 24 HOUR SPRINKLE 1 CAPSULE ORALLY ONCE A DAY TAKING GABAPENTIN 400 MG CAPSULE 1 CAPSULE ORALLY THREE TIMES DAILY NOT-TAKING KETOROLAC TROMETHAMINE 10 MG TABLET 1 TABLET WITH FOOD OR MILK NEEDED ORALLY EVERY 6 HRS MEDICATION LIST REVIEWED AND RECONCILED WITH THE PATIENT PAST MEDICAL HISTORY KIDNEY STONE HTN CHRONIC BACK PAIN GERD HYPERLIPIDEMIA MIGRAINE ALLERGIC RHINITIS SLEEP APNEA ALLERGIES SEASONAL: CONGESTION SOCIAL HISTORY GENERAL: TOBACCO USE ARE YOU A:FORMER SMOKER HOW LONG HAS IT BEEN SINCE YOU LAST SMOKED?> 10 YEARS LATEX QUESTIONNAIRE LATEX ALLERGY : HAVE YOU EVER DEVELOPED ANY TYPE OF REACTION AFTER HANDLING LATEX PRODUCTS SUCH RUBBER GLOVES, CONDOMS, DIAPHRAGMS, BALLOONS, SOCKS, OR UNDERWEAR?NO LATEX ALLERGY : HAVE YOU EVER DEVELOPED ANY TYPE OF REACTION DURING OR AFTER DENTAL APPOINTMENT, VAGINAL/RECTAL EXAMINATION, SURGICAL PROCEDURE, OR ANY OTHER EXPOSURE?NO LATEX RISK : HAVE YOU EVER HAD ANY DIFFICULTY BREATHING OR HIVES AFTER EATING OR HANDLING ANY FRUITS, OR VEGETABLES; SUCH KIWI, BANANAS, STONE FRUITS, OR CHESTNUTSNO LATEX RISK : DO YOU HAVE A PREVIOUS PERSONAL HISTORY OF MORE THAN NINE SURGERIES, SPINA BIFIDA, OR REPEATED CATHERIZATIONS? NO LATEX RISK : ARE YOU FREQUENTLY EXPOSED TO LATEX PRODUCTS IN YOUR OCCUPATION?NO DATE ASKED : 05/16/2021 ALCOHOL USE: YES, OCCASIONAL. ALCOHOL SCREENING DID YOU HAVE A DRINK CONTAINING ALCOHOL IN THE PAST YEAR?YES HOW OFTEN DID YOU HAVE SIX OR MORE DRINKS ON ONE OCCASION IN THE PAST YEAR?NEVER (0 POINTS) HOW MANY DRINKS DID YOU HAVE ON A TYPICAL DAY WHEN YOU WERE DRINKING IN THE PAST YEAR?1 OR 2 (0 POINTS) HOW OFTEN DID YOU HAVE A DRINK CONTAINING ALCOHOL IN THE PAST YEAR?MONTHLY OR LESS (1 POINT) POINTS1 INTERPRETATIONNEGATIVE RECREATIONAL DRUG USE DRUG USE?NO CAFFEINE CAFFEINE USE?YES 2 CUP DAILY SEXUAL HX HAD SEX IN THE LAST 12 MONTHS (VAGINAL, ORAL, OR ANAL)?YES WITHWOMEN ONLY PREVENTION STRATEGIES DISCUSSED:OTHER USE PROTECTION?NO HAVE YOU EVER HAD AN STD?NO CATHOLIC CATHOLIC NO ANGLICAN BELIEFS THAT WOULD IMPACT HEALTH CARE. LANGUAGE LANGUAGES SPOKEN:[place] LEARNING BARRIERS / SPECIAL NEEDS CHANGE FROM LAST VISIT?NO BARRIERS TO LEARNING?NO HEARING IMPAIRED?NO VISION IMPAIRED?YES :CORRECTIVE LENSES COGNITIVELY IMPAIRED?NO READINESS TO LEARN?YES LEARNING PREFERENCES?NO LEARNING CAPABILITIES PRESENT?YES EMOTIONAL BARRIERS?NO SPECIAL DEVICES?NO SALAD COUNTER ATTENDANT NEEDED?NO OCCUPATION: [employer]. DIET: REGULAR. EXERCISE: NO REGULAR EXERCISE. MARITAL STATUS: . REVIEW OF SYSTEMS CONSTITUTIONAL: ANY RECENT FEVER NO . CHILLS NO . WEIGHT CHANGE OF UNKNOWN REASONS NO . GASTROENTEROLOGY: NEW UNEXPLAINABLE CHANGES IN BOWEL CONTROL NO . CONSTIPATION NO . GENITOURINARY: ANY NEW CHANGE IN BLADDER CONTROL? NO . NEUROLOGY: NEW ONSET DIZZINESS OR NEUROLOGICAL CHANGES NOT MENTIONED NO . NEW NUMBNESS OR PAIN PATTERNS NOT MENTIONED AND PERTINENT TO TODAY'S VISIT NO . CARDIOLOGY: NEW CHEST PRESSURE NO . PATIENT DENIES NO . RESPIRATORY: UNEXPLAINABLE COUGH NO . NEW SHORTNESS OF BREATH NO . VITAL SIGNS WT 254.6 LBS, HT 70 IN, BMI 36.53 INDEX, BP 159/81 MM HG, HR 72 /MIN, RR 20 /MIN, TEMP 98.2 F, OXYGEN SAT % 99%, SAFE IN ENV? (Y/N) YES, NA INITIALS TN 09:49, REVIEWED BY: ROC CHIRINOS MA. EXAMINATION GENERAL EXAMINATION: GENERALNO ACUTE DISTRESS, WELL NOURISHED AND HYDRATED. PSYCHAPPROPRIATE MOOD AND AFFECT . LUNGS:CLEAR TO AUSCULTATION BILATERALLY, NO WHEEZES, RHONCHI, RALES. HEART:NO MURMURS, REGULAR RATE AND RHYTHM. ASSESSMENTS LOW BACK PAIN - M54.5 (PRIMARY) TREATMENT LOW BACK PAIN START CELEBREX CAPSULE, 100 MG, 1 CAPSULE WITH FOOD, ORALLY, ONCE A DAY, 30 DAY(S), 30 REFILL GABAPENTIN CAPSULE, 400 MG, 1 CAPSULE, ORALLY, THREE TIMES DAILY, 90 DAYS, 270, REFILLS 3 NOTES: 55-YEAR-OLD MALE IN FOR CHRONIC PAIN FOLLOW-UP. MRI WAS REVIEWED WITH PATIENT TODAY AND POTENTIAL PROCEDURES WERE DISCUSSED HOWEVER PATIENT DECLINED THEM AT THIS TIME. GIVEN PRESENTING SYMPTOMS RECOMMEND STARTING CELEBREX 100 MG DAILY WITH FOLLOW-UP IN 1 MONTH TO DETERMINE EFFICACY OF TREATMENT. PATIENT HAS EXPRESSED UNDERSTANDING OF AND WAS IN AGREEMENT WITH TREATMENT PLAN. GIVEN TIME ASKED QUESTIONS AND EXPRESS CONCERNS. CLINICAL NOTES: CELEBREX INFORMATION PRINTED AND PROVIDED TO PATIENT. PATIENT VERBALIZED AN UNDERSTANDING. FREDDIE CHIRINOS MA. PROCEDURE CODES FA211 ESTABILISHED PATIENT [facility] CHARGE DISPOSITION & COMMUNICATION FOLLOW UP 4 WEEKS (REASON: NEW MEDICATION ) ELECTRONICALLY SIGNED BY YUE OSORIO ON 05/17/2021 AT 09:18 AM EDT DISCLAIMER : THIS IS A VISIT SUMMARY EXTRACTED FROM THE [employer] CHART. IT IS NOT A COPY OF THE [employer] PROGRESS NOTE. MTDD
== END ==
LOC: M PAIN 09:45
PROVIDERS: ATTEND Family Medicine
DX: M54.5 Low back pain (principal); I10 Essential (primary) hypertension; K21.9 Gastro-esophageal reflux disease without esophagitis; E78.5 Hyperlipidemia, unspecified; G43.909 Migraine, unspecified, not intractable, without status migrainosus; J30.2 Other seasonal allergic rhinitis; G47.30 Sleep apnea, unspecified; Z87.891 Personal history of nicotine dependence; Z79.899 Other long term (current) drug therapy

== ENCOUNTER → 2021-06-13 | Outpatient (CLI) | payer OTHER ==
[~2021-06-13] MED LIST changes: +CIPR-249 PO; +FLAG500T PO
--- NOTE | 2021-06-15 03:12 | ECWPNPC ---
PATIENT NAME: TYE OSULLIVAN : 1965 GENDER: MALE VISIT DATE: 06/13/2021 DISCHARGE DATE: 06/13/21 1128 VISIT LOCKED DATE TIME: PHYSICIAN: APOLINAR CELIS RESOURCE: APOLINAR CELIS REASON FOR APPOINTMENT 1. NEW MEDICATION HISTORY OF PRESENT ILLNESS PAIN CENTER INTAKE QUESTIONS: DO YOU HAVE A HISTORY OF MRSA? :YES DO YOU TAKE A BLOOD THINNERS? :NO DO YOU HAVE ANY BLEEDING DISORDERS? :NO ANY NEW NUMBNESS OR WEAKNESS IN YOUR LEGS OR ARMS? :NO ANY PACEMAKER,DEFIBRILLATOR, OR DORSAL COLUMN STIMULATOR? :NO DO YOU HAVE ANY RASHES OR OPEN SORES? :NO ARE YOU ALLERGIC TO IV DYE? :NO ARE YOU DIABETIC? :NO ANY NEW PROBLEMS WITH YOUR MEDICATIONS? :NO HAVE YOU RECEIVED A VACCINE IN THE PAST 30 DAYS? :YES SHINGLES VACCINATION 05/28/2021 IF SO WHAT VACCINE AND WHEN? ALLERGY SHOTS DO YOU PLAN TO RECEIVE A VACCINE IN THE NEXT 21 DAYS? :YES IF SO WHAT VACCINE AND WHEN? ALLERGY SHOTS DO YOU NEED ANY PRESCRIPTION? :NO DO YOU TAKE ANY IMMUNOSUPPRESSIVE MEDICATIONS? :NO GENERAL: HPI 55-YEAR-OLD MALE IN FOR CHRONIC PAIN FOLLOW-UP. AT LAST CLINIC VISIT PATIENT WAS STARTED ON CELEBREX AND HE ADMITS TODAY THAT THIS WAS SOMEWHAT BENEFICIAL. HE RATES HIS PAIN CURRENTLY AT A 2 OUT OF 10 BUT FURTHER STATES IT AVERAGES A 4-5 OUT OF 10. HE DESCRIBES HIS PAIN ACHING AND CONTINUOUS.. -. FALL RISK SCREENING: SCREENING : NO FALLS REPORTED IN THE LAST YEAR. PAIN SCREENING: PATIENT HAS A COMPLAINT OF ACUTE OR CHRONIC PAIN :YES LOCATION OF PAIN:LOW BACK INTENSITY OF PAIN (SCALE OF 1 TO 10):2 AVERAGE 4 OR 5 WHAT DOES YOUR PAIN FEEL LIKE:ACHING, CONTINOUS DURATION:CONTINOUS, CONSTANT, MAINLY DURING THE DAY PAIN IS INCREASED BY:ACTIVITIES, PROLONGED STANDING PAIN IS DECREASED BY:SITTING NURSING NOTE: -. CURRENT MEDICATIONS TAKING ATORVASTATIN CALCIUM 10 MG TABLET 1 TABLET ORALLY ONCE A DAY TAKING LISINOPRIL 40 MG TABLET 1 TABLET ORALLY ONCE A DAY TAKING MONTELUKAST SODIUM 10 MG TABLET 1 TABLET ORALLY ONCE A DAY TAKING OMEPRAZOLE 40 MG CAPSULE DELAYED RELEASE 1 CAPSULE ORALLY ONCE A DAY TAKING CETIRIZINE HCL 10 MG TABLET 1 TABLET ORALLY ONCE A DAY TAKING FLUTICASONE PROPIONATE 50 MCG/ACT SUSPENSION 1 SPRAY IN EACH NOSTRIL NASALLY ONCE A DAY TAKING AMLODIPINE BESYLATE 5 MG TABLET 1 TABLET ORALLY ONCE A DAY TAKING FAMOTIDINE 20 MG TABLET 1 TABLET AT BEDTIME NEEDED ORALLY ONCE A DAY TAKING METOPROLOL SUCCINATE 100 MG CAPSULE ER 24 HOUR SPRINKLE 1 CAPSULE ORALLY ONCE A DAY TAKING CELEBREX 100 MG CAPSULE 1 CAPSULE WITH FOOD ORALLY ONCE A DAY TAKING GABAPENTIN 400 MG CAPSULE 1 CAPSULE ORALLY THREE TIMES DAILY NOT-TAKING KETOROLAC TROMETHAMINE 10 MG TABLET 1 TABLET WITH FOOD OR MILK NEEDED ORALLY EVERY 6 HRS MEDICATION LIST REVIEWED AND RECONCILED WITH THE PATIENT PAST MEDICAL HISTORY KIDNEY STONE HTN CHRONIC BACK PAIN GERD HYPERLIPIDEMIA MIGRAINE ALLERGIC RHINITIS SLEEP APNEA ALLERGIES SEASONAL: CONGESTION SOCIAL HISTORY GENERAL: TOBACCO USE ARE YOU A:FORMER SMOKER HOW LONG HAS IT BEEN SINCE YOU LAST SMOKED?> 10 YEARS LATEX QUESTIONNAIRE LATEX ALLERGY : HAVE YOU EVER DEVELOPED ANY TYPE OF REACTION AFTER HANDLING LATEX PRODUCTS SUCH RUBBER GLOVES, CONDOMS, DIAPHRAGMS, BALLOONS, SOCKS, OR UNDERWEAR?NO LATEX ALLERGY : HAVE YOU EVER DEVELOPED ANY TYPE OF REACTION DURING OR AFTER DENTAL APPOINTMENT, VAGINAL/RECTAL EXAMINATION, SURGICAL PROCEDURE, OR ANY OTHER EXPOSURE?NO LATEX RISK : HAVE YOU EVER HAD ANY DIFFICULTY BREATHING OR HIVES AFTER EATING OR HANDLING ANY FRUITS, OR VEGETABLES; SUCH KIWI, BANANAS, STONE FRUITS, OR CHESTNUTSNO LATEX RISK : DO YOU HAVE A PREVIOUS PERSONAL HISTORY OF MORE THAN NINE SURGERIES, SPINA BIFIDA, OR REPEATED CATHERIZATIONS? NO LATEX RISK : ARE YOU FREQUENTLY EXPOSED TO LATEX PRODUCTS IN YOUR OCCUPATION?NO DATE ASKED : 06/13/2021 ALCOHOL USE: YES, OCCASIONAL. ALCOHOL SCREENING DID YOU HAVE A DRINK CONTAINING ALCOHOL IN THE PAST YEAR?YES HOW OFTEN DID YOU HAVE SIX OR MORE DRINKS ON ONE OCCASION IN THE PAST YEAR?NEVER (0 POINTS) HOW MANY DRINKS DID YOU HAVE ON A TYPICAL DAY WHEN YOU WERE DRINKING IN THE PAST YEAR?1 OR 2 (0 POINTS) HOW OFTEN DID YOU HAVE A DRINK CONTAINING ALCOHOL IN THE PAST YEAR?MONTHLY OR LESS (1 POINT) POINTS1 INTERPRETATIONNEGATIVE RECREATIONAL DRUG USE DRUG USE?NO CAFFEINE CAFFEINE USE?YES 2 CUP DAILY SEXUAL HX HAD SEX IN THE LAST 12 MONTHS (VAGINAL, ORAL, OR ANAL)?YES WITHWOMEN ONLY PREVENTION STRATEGIES DISCUSSED:OTHER USE PROTECTION?NO HAVE YOU EVER HAD AN STD?NO YAZIDISM YAZIDISM NO WORSHIP BELIEFS THAT WOULD IMPACT HEALTH CARE. LANGUAGE LANGUAGES SPOKEN:MAORI LEARNING BARRIERS / SPECIAL NEEDS CHANGE FROM LAST VISIT?NO BARRIERS TO LEARNING?NO HEARING IMPAIRED?NO VISION IMPAIRED?YES :CORRECTIVE LENSES COGNITIVELY IMPAIRED?NO READINESS TO LEARN?YES LEARNING PREFERENCES?NO LEARNING CAPABILITIES PRESENT?YES EMOTIONAL BARRIERS?NO SPECIAL DEVICES?NO PIPELINE INTEGRITY ENGINEER NEEDED?NO OCCUPATION: [employer]. DIET: REGULAR. EXERCISE: NO REGULAR EXERCISE. MARITAL STATUS: . REVIEW OF SYSTEMS CONSTITUTIONAL: ANY RECENT FEVER NO . CHILLS NO . WEIGHT CHANGE OF UNKNOWN REASONS NO . GASTROENTEROLOGY: NEW UNEXPLAINABLE CHANGES IN BOWEL CONTROL NO . CONSTIPATION NO . GENITOURINARY: ANY NEW CHANGE IN BLADDER CONTROL? NO . NEUROLOGY: NEW ONSET DIZZINESS OR NEUROLOGICAL CHANGES NOT MENTIONED NO . NEW NUMBNESS OR PAIN PATTERNS NOT MENTIONED AND PERTINENT TO TODAY'S VISIT NO . CARDIOLOGY: NEW CHEST PRESSURE NO . PATIENT DENIES NO . RESPIRATORY: UNEXPLAINABLE COUGH NO . NEW SHORTNESS OF BREATH NO . VITAL SIGNS WT 264.0 LBS, HT 70 IN, BMI 37.88 INDEX, BP 139/78 MM HG, HR 58 /MIN, RR 18 /MIN, TEMP 98.2 F, OXYGEN SAT % 97%, SAFE IN ENV? (Y/N) YES, NA INITIALS AW 1056, REVIEWED BY: ROC CHIRINOS MA. EXAMINATION GENERAL EXAMINATION: GENERALNO ACUTE DISTRESS, WELL NOURISHED AND HYDRATED. PSYCHAPPROPRIATE MOOD AND AFFECT . LUNGS:CLEAR TO AUSCULTATION BILATERALLY, NO WHEEZES, RHONCHI, RALES. HEART:NO MURMURS, REGULAR RATE AND RHYTHM. ASSESSMENTS LOW BACK PAIN - M54.5 (PRIMARY) TREATMENT LOW BACK PAIN INCREASE CELEBREX CAPSULE, 100 MG, 1 CAPSULE WITH FOOD, ORALLY, TWICE A DAY, 30 DAY(S), 60 CAPSULE, REFILLS 2 NOTES: 55-YEAR-OLD MALE IN FOR CHRONIC PAIN FOLLOW-UP. GIVEN PRESENTING SYMPTOMS RECOMMEND INCREASING CELEBREX TO 100 MG TWICE DAILY WITH FOLLOW-UP IN 2 MONTHS. PATIENT HAS EXPRESSED UNDERSTANDING OF AND WAS IN AGREEMENT WITH TREATMENT PLAN. GIVEN TIME ASKED QUESTIONS AND EXPRESS CONCERNS. PROCEDURE CODES FA211 ESTABILISHED PATIENT [facility] FACILITY CHARGE DISPOSITION & COMMUNICATION FOLLOW UP 2 MONTHS (REASON: MEDICATION INCREASE) ELECTRONICALLY SIGNED BY YUE OSORIO ON 06/14/2021 AT 08:47 AM EDT DISCLAIMER : THIS IS A VISIT SUMMARY EXTRACTED FROM THE [employer] CHART. IT IS NOT A COPY OF THE [employer] PROGRESS NOTE. MTDD
== END ==
LOC: M PAIN 11:00
PROVIDERS: ATTEND Family Medicine
DX: M54.5 Low back pain (principal); G89.29 Other chronic pain; K21.9 Gastro-esophageal reflux disease without esophagitis; G43.909 Migraine, unspecified, not intractable, without status migrainosus; G47.30 Sleep apnea, unspecified; Z86.14 Personal history of Methicillin resistant Staphylococcus aureus infection; Z87.891 Personal history of nicotine dependence; Z79.899 Other long term (current) drug therapy

== ENCOUNTER 2021-06-17 11:33 | Emergency (ER) | payer OTHER ==
[~2021-06-17] VITALS: Ht 177.8 cm; Wt 118.6 kg
[~2021-06-17 11:33] MED LIST changes: -CIPR-249 PO; -FLAG500T PO
[2021-06-17 15:19] LABS: BASO % 0.2 % (0.0-1.0); EOS # 0.1 10^3/uL (0.0-0.5); EOS % 0.6 % (0.0-3.0); HEMATOCRIT 42.4 % (42.0-52.0); HEMOGLOBIN 13.8 g/dl (13.5-17.5); LYMPH # 3.9 10^3/uL (1.5-5.0); LYMPH % 30.5 % (24.0-44.0); MEAN CORPUSCULAR HEMOGLOBIN 30.7 pg (27.0-33.0); MEAN CORPUSCULAR HGB CONC 32.5 g/dl (32.0-36.5); MEAN CORPUSCULAR VOLUME 94.4 fl (80.0-96.0); MONO # 1.1 10^3/uL (0.0-0.8); MONO % 8.3 % (2.0-8.0); NEUTROPHILS # 7.7 10^3/uL (1.5-8.5); NEUTROPHILS % 60.1 % (36.0-66.0); PLATELET COUNT, AUTOMATED 242 10^3/uL (150-450); RED BLOOD COUNT 4.49 10^6/uL (4.30-6.10); WHITE BLOOD COUNT 12.8 10^3/uL (4.0-10.0)
[2021-06-17] MEDS ORDERED: ISOVUE-370 76% 100ML VIAL As Ordered ONE (15:33)
--- NOTE | 2021-06-17 15:50 | REP ---
INDICATION: LLq pain, hx of diverticul. COMPARISON: Comparison CT abdomen pelvis 07 December 2020.. TECHNIQUE: Helical scanning was acquired and 4 mm axial images are re-formatted. Coronal and sagittal MPR images were generated and reviewed. The contrast enhancement dose is 100 mL of intravenous Isovue 370. FINDINGS: Preliminary digital online communications specialist radiograph is unremarkable. The lung bases are clear on axial CT images. The liver is normal in size homogeneous and low in density consistent with diffuse fatty infiltration. No abnormality is noted in the gallbladder. The spleen is normal in size homogeneous in texture. There is a small accessory splenule anterior to the spleen in the left upper quadrant. Normal adrenal glands are observed bilaterally. The kidneys enhance symmetrically and are morphologically intact apart from small cysts in the left kidney and a lower pole cyst on the right measuring 5.8 cm in greatest diameter. There is a peripheral hyperdense cyst in the lower pole on the left unchanged from the December 07, 2020 study. No retroperitoneal mass or adenopathy is seen. No abnormality is noted in the pancreas or gallbladder. Pelvic CT images demonstrate a segment of mural thickening in the sigmoid colon involved by diverticulosis. There is pericolonic fat streaking and diverticular air extending just beyond the lumen of the sigmoid colon. The findings are consistent with acute diverticulitis of the sigmoid colon. There is no evidence of free air or abscess. Normal appendix is seen. Study is otherwise unremarkable. IMPRESSION: Acute diverticulitis of the sigmoid colon. No free air or abscess seen. <Electronically signed by Rian Savage > 06/17/21 0414
[2021-06-17 15:51] LABS: ALBUMIN 3.6 GM/DL (3.2-5.2); BILIRUBIN,DIRECT 0.3 MG/DL (0.0-0.2); BILIRUBIN,TOTAL 1.1 MG/DL (0.2-1.0); TOTAL PROTEIN 6.8 GM/DL (6.4-8.2)
[2021-06-17] MEDS ORDERED: FLAG500T PO (16:19)
[2021-06-17] MEDS ORDERED: CIPR-249 PO (16:19)
[2021-06-17] MEDS ORDERED: CIPROFLOXACIN 400 MG in IV 1 EA IV ONE (16:20)
[2021-06-17] MEDS ORDERED: metroNIDAZOLE (FLAGYL) 500MG TABLET PO ONE (16:20)
[2021-06-17 17:45] VITALS: BP 139/88
== END 2021-06-17 17:47 | disposition home or self-care (01) ==
LOC: M ED 11:33
DX: K57.32 Diverticulitis of large intestine without perforation or abscess without bleeding (principal); I10 Essential (primary) hypertension; K27.9 Peptic ulcer, site unspecified, unspecified as acute or chronic, without hemorrhage or perforation; E78.5 Hyperlipidemia, unspecified; Z79.899 Other long term (current) drug therapy; Z87.19 Personal history of other diseases of the digestive system
CPT/HCPCS: 74177; 80047; 80076; 81001; 83690; 85025; 96365; 99284; J0744; Q9967

== ENCOUNTER → 2021-08-01 | Outpatient (CLI) | payer OTHER ==
[~2021-08-01] MED LIST changes: +CIPR-249 PO; +FLAG500T PO
[2021-08-01 11:38] LABS: BASO % 0.2 % (0.0-1.0); EOS # 0.1 10^3/uL (0.0-0.5); EOS % 0.7 % (0.0-3.0); HEMATOCRIT 43.1 % (42.0-52.0); HEMOGLOBIN 14.1 g/dl (13.5-17.5); LYMPH # 2.9 10^3/uL (1.5-5.0); LYMPH % 23.8 % (24.0-44.0); MEAN CORPUSCULAR HEMOGLOBIN 30.7 pg (27.0-33.0); MEAN CORPUSCULAR HGB CONC 32.7 g/dl (32.0-36.5); MEAN CORPUSCULAR VOLUME 93.9 fl (80.0-96.0); MONO # 1.3 10^3/uL (0.0-0.8); MONO % 10.8 % (2.0-8.0); NEUTROPHILS # 7.8 10^3/uL (1.5-8.5); NEUTROPHILS % 64.2 % (36.0-66.0); PLATELET COUNT, AUTOMATED 275 10^3/uL (150-450); RED BLOOD COUNT 4.59 10^6/uL (4.30-6.10); WHITE BLOOD COUNT 12.2 10^3/uL (4.0-10.0)
[2021-08-01 12:15] LABS: ALBUMIN 3.8 GM/DL (3.2-5.2); ALT/SGPT 61 U/L (12-78); BILIRUBIN,TOTAL 1.3 MG/DL (0.2-1.0); BLOOD UREA NITROGEN 16 MG/DL (7-18); CALCIUM LEVEL 8.7 MG/DL (8.5-10.1); CARBON DIOXIDE LEVEL 28 MEQ/L (21-32); CHLORIDE LEVEL 107 MEQ/L (98-107); CHOLESTEROL LEVEL 132 MG/DL (<200); CHOLESTEROL RISK RATIO 3.882 (<5); GLOMERULAR FILTRATION RATE > 60.0 (>56); GLUCOSE, FASTING 96 MG/DL (70-100); HDL CHOLESTEROL 34 MG/DL (>40); LDL CHOLESTEROL 65 MG/DL (<100); NON-HDL-C 98 MG/DL; SODIUM LEVEL 140 MEQ/L (136-145); TOTAL PROTEIN 7.1 GM/DL (6.4-8.2); TRIGLYCERIDES LEVEL 167 MG/DL (<150)
== END ==
LOC: M WUC 08:50
PROVIDERS: ATTEND Physician Assistant Medical
DX: R53.83 Other fatigue (principal); I10 Essential (primary) hypertension; E78.2 Mixed hyperlipidemia

== ENCOUNTER → 2021-08-16 | Outpatient (CLI) | payer OTHER | LOC: M PAIN 10:45 | PROVIDERS: ATTEND Anesthesiology | DX: M47.816 Spondylosis without myelopathy or radiculopathy, lumbar region (principal); I10 Essential (primary) hypertension; K21.9 Gastro-esophageal reflux disease without esophagitis; E78.5 Hyperlipidemia, unspecified; G43.909 Migraine, unspecified, not intractable, without status migrainosus; J30.2 Other seasonal allergic rhinitis; G47.30 Sleep apnea, unspecified; Z87.891 Personal history of nicotine dependence; Z79.899 Other long term (current) drug therapy ==

== ENCOUNTER → 2021-12-20 | Outpatient (CLI) | payer OTHER | LOC: M PAIN 09:30 | PROVIDERS: ATTEND Nurse Practitioner Family | DX: M47.816 Spondylosis without myelopathy or radiculopathy, lumbar region (principal); I10 Essential (primary) hypertension; K21.9 Gastro-esophageal reflux disease without esophagitis; E78.5 Hyperlipidemia, unspecified; G43.909 Migraine, unspecified, not intractable, without status migrainosus; J30.9 Allergic rhinitis, unspecified; G47.30 Sleep apnea, unspecified; Z87.891 Personal history of nicotine dependence; Z79.899 Other long term (current) drug therapy; J30.1 Allergic rhinitis due to pollen ==

== ENCOUNTER → 2022-02-19 | Outpatient (CLI) | payer OTHER ==
[2022-02-19 09:40] LABS: BASO % 0.4 % (0.0-1.0); EOS # 0.1 10^3/uL (0.0-0.5); EOS % 1.3 % (0.0-3.0); HEMATOCRIT 41.8 % (42.0-52.0); HEMOGLOBIN 13.7 g/dl (13.5-17.5); LYMPH # 3.9 10^3/uL (1.5-5.0); LYMPH % 37.8 % (24.0-44.0); MEAN CORPUSCULAR HEMOGLOBIN 30.9 pg (27.0-33.0); MEAN CORPUSCULAR HGB CONC 32.8 g/dl (32.0-36.5); MEAN CORPUSCULAR VOLUME 94.4 fl (80.0-96.0); MONO # 0.9 10^3/uL (0.0-0.8); MONO % 8.6 % (2.0-8.0); NEUTROPHILS # 5.3 10^3/uL (1.5-8.5); NEUTROPHILS % 51.5 % (36.0-66.0); PLATELET COUNT, AUTOMATED 277 10^3/uL (150-450); RED BLOOD COUNT 4.43 10^6/uL (4.30-6.10); WHITE BLOOD COUNT 10.2 10^3/uL (4.0-10.0)
[2022-02-19 09:58] LABS: ALBUMIN 3.7 GM/DL (3.2-5.2); ALT/SGPT 50 U/L (12-78); BILIRUBIN,TOTAL 0.5 MG/DL (0.2-1.0); BLOOD UREA NITROGEN 16 MG/DL (7-18); CALCIUM LEVEL 9.4 MG/DL (8.5-10.1); CARBON DIOXIDE LEVEL 33 MEQ/L (21-32); CHLORIDE LEVEL 107 MEQ/L (98-107); CHOLESTEROL LEVEL 161 MG/DL (<200); CHOLESTEROL RISK RATIO 4.878 (<5); CREATININE FOR GFR 0.78 MG/DL (0.70-1.30); FREE T4 0.84 NG/DL (0.76-1.46); GLOMERULAR FILTRATION RATE > 60.0 (>56); GLUCOSE, FASTING 111 MG/DL (70-100); HDL CHOLESTEROL 33 MG/DL (>40); LDL CHOLESTEROL 63 MG/DL (<100); NON-HDL-C 128 MG/DL; POTASSIUM SERUM 4.3 MEQ/L (3.5-5.1); SODIUM LEVEL 142 MEQ/L (136-145); TOTAL PROTEIN 6.8 GM/DL (6.4-8.2); TRIGLYCERIDES LEVEL 323 MG/DL (<150)
[2022-02-19 10:20] LABS: HEMOGLOBIN A1c 5.9 %
[2022-02-20 23:08] LABS: PSA TOTAL 0.4 ng/mL (0.0-4.0)
== END ==
LOC: M WUC 08:10
PROVIDERS: ATTEND Physician Assistant
DX: Z12.5 Encounter for screening for malignant neoplasm of prostate (principal); Z13.1 Encounter for screening for diabetes mellitus; I10 Essential (primary) hypertension; E78.2 Mixed hyperlipidemia; R53.83 Other fatigue

== ENCOUNTER → 2022-02-20 | Outpatient (CLI) | payer OTHER | LOC: M PAIN 09:30 | PROVIDERS: ATTEND Nurse Practitioner Family | DX: M47.816 Spondylosis without myelopathy or radiculopathy, lumbar region (principal); G89.29 Other chronic pain; K21.9 Gastro-esophageal reflux disease without esophagitis; G43.909 Migraine, unspecified, not intractable, without status migrainosus; G47.30 Sleep apnea, unspecified; Z86.14 Personal history of Methicillin resistant Staphylococcus aureus infection; Z87.891 Personal history of nicotine dependence; Z79.899 Other long term (current) drug therapy ==

== ENCOUNTER → 2022-04-02 | Outpatient (CLI) | payer OTHER | LOC: M PAIN 09:30 | PROVIDERS: ATTEND Nurse Practitioner Family | DX: M79.10 Myalgia, unspecified site (principal); M47.816 Spondylosis without myelopathy or radiculopathy, lumbar region; K21.9 Gastro-esophageal reflux disease without esophagitis; E78.5 Hyperlipidemia, unspecified; G43.909 Migraine, unspecified, not intractable, without status migrainosus; G47.30 Sleep apnea, unspecified; Z86.14 Personal history of Methicillin resistant Staphylococcus aureus infection; Z87.891 Personal history of nicotine dependence; Z79.899 Other long term (current) drug therapy ==

== ENCOUNTER → 2022-07-29 | Outpatient (CLI) | payer OTHER | LOC: M PAIN 09:30 | PROVIDERS: ATTEND Nurse Practitioner Family | DX: M79.10 Myalgia, unspecified site (principal); M54.50 Low back pain, unspecified; I10 Essential (primary) hypertension; K21.9 Gastro-esophageal reflux disease without esophagitis; E78.5 Hyperlipidemia, unspecified; G43.909 Migraine, unspecified, not intractable, without status migrainosus; G47.30 Sleep apnea, unspecified; Z87.442 Personal history of urinary calculi; J30.1 Allergic rhinitis due to pollen; Z86.16 Personal history of COVID-19; Z87.891 Personal history of nicotine dependence; Z79.899 Other long term (current) drug therapy ==

== ENCOUNTER → 2022-10-02 | Outpatient (CLI) | payer OTHER | LOC: M PAIN 08:45 | PROVIDERS: ATTEND Nurse Practitioner Family | DX: M79.10 Myalgia, unspecified site (principal); M47.816 Spondylosis without myelopathy or radiculopathy, lumbar region; I10 Essential (primary) hypertension; K21.9 Gastro-esophageal reflux disease without esophagitis; G43.909 Migraine, unspecified, not intractable, without status migrainosus; G47.30 Sleep apnea, unspecified; F17.220 Nicotine dependence, chewing tobacco, uncomplicated; Z86.14 Personal history of Methicillin resistant Staphylococcus aureus infection; Z79.899 Other long term (current) drug therapy ==

== ENCOUNTER → 2022-11-25 | Outpatient (CLI) | payer OTHER | LOC: M PAIN 09:00 | PROVIDERS: ATTEND Nurse Practitioner Family | DX: M79.10 Myalgia, unspecified site (principal); M47.816 Spondylosis without myelopathy or radiculopathy, lumbar region; I10 Essential (primary) hypertension; K21.9 Gastro-esophageal reflux disease without esophagitis; G43.909 Migraine, unspecified, not intractable, without status migrainosus; G47.30 Sleep apnea, unspecified; F17.220 Nicotine dependence, chewing tobacco, uncomplicated; E78.5 Hyperlipidemia, unspecified; J30.1 Allergic rhinitis due to pollen; Z86.16 Personal history of COVID-19; Z86.14 Personal history of Methicillin resistant Staphylococcus aureus infection; Z79.899 Other long term (current) drug therapy; Z87.891 Personal history of nicotine dependence ==

== ENCOUNTER → 2022-12-23 | Outpatient (CLI) | payer OTHER | LOC: M PLAIMG 06:55 | PROVIDERS: ATTEND Nurse Practitioner Family | DX: M47.816 Spondylosis without myelopathy or radiculopathy, lumbar region (principal); M51.37 Other intervertebral disc degeneration, lumbosacral region ==

== ENCOUNTER → 2022-12-29 | Outpatient (CLI) | payer OTHER | LOC: M PAIN 08:45 | PROVIDERS: ATTEND Nurse Practitioner Family | DX: M79.18 Myalgia, other site (principal); M47.816 Spondylosis without myelopathy or radiculopathy, lumbar region; I10 Essential (primary) hypertension; K21.9 Gastro-esophageal reflux disease without esophagitis; G89.29 Other chronic pain; E78.5 Hyperlipidemia, unspecified; G43.909 Migraine, unspecified, not intractable, without status migrainosus; J30.1 Allergic rhinitis due to pollen; G47.30 Sleep apnea, unspecified; Z86.16 Personal history of COVID-19; Z87.891 Personal history of nicotine dependence; Z79.899 Other long term (current) drug therapy ==

== ENCOUNTER → 2023-01-19 | Outpatient (CLI) | payer OTHER ==
[~2023-01-19] MED LIST changes: +MONT-5 PO; -SING10TA32 PO
== END ==
LOC: M PAIN 08:45
PROVIDERS: ATTEND Nurse Practitioner Family
DX: M79.10 Myalgia, unspecified site (principal); M47.816 Spondylosis without myelopathy or radiculopathy, lumbar region; I10 Essential (primary) hypertension; K21.9 Gastro-esophageal reflux disease without esophagitis; G43.909 Migraine, unspecified, not intractable, without status migrainosus; G47.30 Sleep apnea, unspecified; Z86.14 Personal history of Methicillin resistant Staphylococcus aureus infection; Z87.891 Personal history of nicotine dependence; Z79.899 Other long term (current) drug therapy

== ENCOUNTER → 2023-04-21 | Outpatient (CLI) | payer OTHER | LOC: M PAIN 09:45 | PROVIDERS: ATTEND Nurse Practitioner Family | DX: M47.816 Spondylosis without myelopathy or radiculopathy, lumbar region (principal); G89.29 Other chronic pain; I10 Essential (primary) hypertension; K21.9 Gastro-esophageal reflux disease without esophagitis; M54.50 Low back pain, unspecified; E78.5 Hyperlipidemia, unspecified; G43.909 Migraine, unspecified, not intractable, without status migrainosus; J30.1 Allergic rhinitis due to pollen; G47.30 Sleep apnea, unspecified; Z86.16 Personal history of COVID-19; Z79.899 Other long term (current) drug therapy ==

== ENCOUNTER → 2023-06-26 | Outpatient (CLI) | payer OTHER ==
[~2023-06-26] MED LIST changes: -GABA-283 PO; +GABA-284 PO
[2023-06-26 09:46] LABS: HEMATOCRIT 41.7 % (42.0-52.0); HEMOGLOBIN 13.8 g/dl (13.5-17.5); MEAN CORPUSCULAR HEMOGLOBIN 30.8 pg (27.0-33.0); MEAN CORPUSCULAR HGB CONC 33.1 g/dl (32.0-36.5); MEAN CORPUSCULAR VOLUME 93.1 fl (80.0-96.0); PLATELET COUNT, AUTOMATED 272 10^3/uL (150-450); RED BLOOD COUNT 4.48 10^6/uL (4.30-6.10); WHITE BLOOD COUNT 10.3 10^3/uL (4.0-10.0)
[2023-06-26 10:10] LABS: HEMOGLOBIN A1c 5.6 % (4.0-6.0)
[2023-06-26 10:12] LABS: ALBUMIN 3.7 G/DL (3.2-5.2); ALKALINE PHOSPHATASE 79 U/L (46-116); ALT/SGPT 46 U/L (7.0-40); AST/SGOT 18 U/L (<34); BILIRUBIN,TOTAL 0.9 MG/DL (0.3-1.2); BLOOD UREA NITROGEN 16 MG/DL (9-23); CALCIUM LEVEL 8.6 MG/DL (8.5-10.1); CARBON DIOXIDE LEVEL 28 MMOL/L (20-31); CHLORIDE LEVEL 104 MMOL/L (98-107); CHOLESTEROL LEVEL 128 MG/DL (<200); CHOLESTEROL RISK RATIO 4.92 (<5); CREATININE FOR GFR 0.75 MG/DL (0.70-1.30); FOLATE 13.84 NG/ML (>5.4); GLOMERULAR FILTRATION RATE > 60.0 (>56); GLUCOSE, FASTING 106 MG/DL (60-100); LDL CHOLESTEROL 48.2 MG/DL (<100); POTASSIUM SERUM 3.8 MMOL/L (3.5-5.1); SODIUM LEVEL 140 MMOL/L (136-145); TOTAL 25(OH) VITAMIN D 31.8 NG/ML (20.0-100.0); TOTAL PROTEIN 6.6 G/DL (5.7-8.2); TRIGLYCERIDES LEVEL 269 MG/DL (<150)
[2023-06-26 10:13] LABS: VITAMIN B12 LEVEL 340 PG/ML (211-911)
[2023-06-27 15:07] LABS: PSA TOTAL 0.4 ng/mL (0.0-4.0)
== END ==
LOC: M WUC 08:26
PROVIDERS: ATTEND Nurse Practitioner Adult Health
DX: I10 Essential (primary) hypertension (principal); E78.5 Hyperlipidemia, unspecified; R73.03 Prediabetes; E55.9 Vitamin D deficiency, unspecified; Z12.5 Encounter for screening for malignant neoplasm of prostate; R20.2 Paresthesia of skin; Z79.899 Other long term (current) drug therapy

== ENCOUNTER → 2023-07-02 | Outpatient (CLI) | payer OTHER | LOC: M RAD 09:48 | PROVIDERS: ATTEND Nurse Practitioner Adult Health | DX: R20.2 Paresthesia of skin (principal); M54.12 Radiculopathy, cervical region ==

== ENCOUNTER → 2023-07-23 | Outpatient (CLI) | payer OTHER | LOC: M PAIN 08:45 | PROVIDERS: ATTEND Nurse Practitioner Family | DX: M47.816 Spondylosis without myelopathy or radiculopathy, lumbar region (principal); G89.29 Other chronic pain; G47.30 Sleep apnea, unspecified; I10 Essential (primary) hypertension; K21.9 Gastro-esophageal reflux disease without esophagitis; G43.909 Migraine, unspecified, not intractable, without status migrainosus; Z86.14 Personal history of Methicillin resistant Staphylococcus aureus infection; Z87.891 Personal history of nicotine dependence; Z91.048 Other nonmedicinal substance allergy status; Z79.899 Other long term (current) drug therapy ==

== ENCOUNTER → 2023-08-11 | Outpatient (CLI) | payer OTHER | LOC: M PAIN 11:45 | PROVIDERS: ATTEND Nurse Practitioner Family | DX: M47.816 Spondylosis without myelopathy or radiculopathy, lumbar region (principal); G89.29 Other chronic pain; I10 Essential (primary) hypertension; K21.9 Gastro-esophageal reflux disease without esophagitis; E78.5 Hyperlipidemia, unspecified; G47.30 Sleep apnea, unspecified; G43.909 Migraine, unspecified, not intractable, without status migrainosus; Z86.16 Personal history of COVID-19; Z79.899 Other long term (current) drug therapy; Z87.891 Personal history of nicotine dependence; J30.1 Allergic rhinitis due to pollen ==

== ENCOUNTER 2023-09-28 10:32 | Emergency (ER) | payer MEDICAID, OTHER ==
[~2023-09-28] VITALS: Ht 177.8 cm; Wt 116.3 kg
[2023-09-28] MEDS ORDERED: ASPE4PAD TOP (15:02)
[2023-09-28] MEDS ORDERED: NAPR-837 PO (15:02)
[2023-09-28 15:10] VITALS: BP 138/79; TEMP 98.2; O2SAT 96
== END 2023-09-28 15:11 | disposition home or self-care (01) ==
LOC: M ED 10:32
DX: S23.41XA Sprain of ribs, initial encounter (principal); N28.1 Cyst of kidney, acquired; K21.9 Gastro-esophageal reflux disease without esophagitis; E78.5 Hyperlipidemia, unspecified; I10 Essential (primary) hypertension; Z87.891 Personal history of nicotine dependence

== ENCOUNTER → 2023-10-02 | Outpatient (CLI) | payer OTHER ==
[~2023-10-02] MED LIST changes: +ASPE4PAD TOP; +NAPR-837 PO
== END ==
LOC: M RAD 12:50
PROVIDERS: ATTEND Nurse Practitioner Adult Health
DX: M51.16 Intervertebral disc disorders with radiculopathy, lumbar region (principal); M53.82 Other specified dorsopathies, cervical region; M51.17 Intervertebral disc disorders with radiculopathy, lumbosacral region; M51.14 Intervertebral disc disorders with radiculopathy, thoracic region; M53.84 Other specified dorsopathies, thoracic region

== ENCOUNTER → 2023-10-12 | Outpatient (CLI) | payer OTHER | LOC: M PAIN 09:15 | PROVIDERS: ATTEND Nurse Practitioner Family | DX: M47.816 Spondylosis without myelopathy or radiculopathy, lumbar region (principal); G89.29 Other chronic pain; I10 Essential (primary) hypertension; K21.9 Gastro-esophageal reflux disease without esophagitis; E78.5 Hyperlipidemia, unspecified; G43.909 Migraine, unspecified, not intractable, without status migrainosus; G47.30 Sleep apnea, unspecified; Z86.16 Personal history of COVID-19; Z87.891 Personal history of nicotine dependence; Z79.899 Other long term (current) drug therapy; J30.2 Other seasonal allergic rhinitis ==

== ENCOUNTER → 2024-01-12 | Outpatient (CLI) | payer OTHER | LOC: M PAIN 09:15 | PROVIDERS: ATTEND Nurse Practitioner Family | DX: M47.816 Spondylosis without myelopathy or radiculopathy, lumbar region (principal); G89.29 Other chronic pain; M54.50 Low back pain, unspecified; I10 Essential (primary) hypertension; K21.9 Gastro-esophageal reflux disease without esophagitis; G43.909 Migraine, unspecified, not intractable, without status migrainosus; G47.30 Sleep apnea, unspecified; F17.220 Nicotine dependence, chewing tobacco, uncomplicated; Z79.899 Other long term (current) drug therapy; Z87.891 Personal history of nicotine dependence ==

== ENCOUNTER → 2024-02-23 | Outpatient (REF) | payer OTHER | LOC: M LAB REF 16:14 | PROVIDERS: ATTEND Surgery | DX: D17.1 Benign lipomatous neoplasm of skin and subcutaneous tissue of trunk (principal) ==

== ENCOUNTER 2024-03-11 23:05 | Emergency (ER) | payer OTHER ==
[2024-03-12 01:57] VITALS: BP 158/82; TEMP 98; O2SAT 98
== END 2024-03-12 01:59 | disposition home or self-care (01) ==
LOC: M ED 23:05
DX: M25.512 Pain in left shoulder (principal); I10 Essential (primary) hypertension; E78.5 Hyperlipidemia, unspecified; K21.9 Gastro-esophageal reflux disease without esophagitis; Z79.899 Other long term (current) drug therapy

== ENCOUNTER → 2024-03-22 | Outpatient (CLI) | payer OTHER | LOC: M RAD 08:48 | PROVIDERS: ATTEND Nurse Practitioner Adult Health | DX: M19.012 Primary osteoarthritis, left shoulder (principal); M19.011 Primary osteoarthritis, right shoulder ==

== ENCOUNTER → 2024-05-02 | Outpatient (CLI) | payer OTHER ==
[~2024-05-02] MED LIST changes: +AMOX875T2 PO; +DULO1CAP6; +GEMFPOW3; +HYDR-3490; +ONDA-282; -ONDA4TAB6; +VITA200010
== END ==
LOC: M PAIN 10:00
PROVIDERS: ATTEND Nurse Practitioner Family
DX: M53.3 Sacrococcygeal disorders, not elsewhere classified (principal); M47.816 Spondylosis without myelopathy or radiculopathy, lumbar region; G89.29 Other chronic pain; I10 Essential (primary) hypertension; K21.9 Gastro-esophageal reflux disease without esophagitis; E78.5 Hyperlipidemia, unspecified; G43.909 Migraine, unspecified, not intractable, without status migrainosus; G47.30 Sleep apnea, unspecified; Z87.891 Personal history of nicotine dependence; Z79.899 Other long term (current) drug therapy

== ENCOUNTER → 2024-05-16 | Outpatient (CLI) | payer OTHER ==
[~2024-05-16] MED LIST changes: -AMOX875T2 PO; -DULO1CAP6; -GEMFPOW3; -HYDR-3490; -VITA200010
== END ==
LOC: M RAD 10:08
PROVIDERS: ATTEND Nurse Practitioner Family
DX: M53.3 Sacrococcygeal disorders, not elsewhere classified (principal)

== ENCOUNTER 2024-05-24 12:04 | Emergency (ER) | payer OTHER ==
[~2024-05-24] VITALS: Ht 177.8 cm; Wt 116.0 kg
[2024-05-24] MEDS ORDERED: DULO1CAP6 (12:24)
[2024-05-24] MEDS ORDERED: VITA200010 (12:24)
[2024-05-24] MEDS ORDERED: HYDR-3490 (12:24)
[2024-05-24] MEDS ORDERED: GEMFPOW3 (12:24)
[2024-05-24 14:18] LABS: BASO % 0.3 % (0.0-1.0); EOS # 0.1 10^3/uL (0.0-0.5); EOS % 1.2 % (0.0-3.0); HEMATOCRIT 39.3 % (42.0-52.0); LYMPH # 3.2 10^3/uL (1.5-5.0); LYMPH % 28.4 % (24.0-44.0); MEAN CORPUSCULAR HEMOGLOBIN 31.3 pg (27.0-33.0); MEAN CORPUSCULAR HGB CONC 33.1 g/dl (32.0-36.5); MEAN CORPUSCULAR VOLUME 94.7 fl (80.0-96.0); MONO # 0.9 10^3/uL (0.0-0.8); MONO % 8.2 % (2.0-8.0); NEUTROPHILS # 6.9 10^3/uL (1.5-8.5); NEUTROPHILS % 61.4 % (36.0-66.0); PLATELET COUNT, AUTOMATED 331 10^3/uL (150-450); RED BLOOD COUNT 4.15 10^6/uL (4.30-6.10); WHITE BLOOD COUNT 11.3 10^3/uL (4.0-10.0)
[2024-05-24 14:41] LABS: LIPASE 34 U/L (12-53)
[2024-05-24 14:43] LABS: ALBUMIN 3.6 G/DL (3.2-5.2); ALKALINE PHOSPHATASE 86 U/L (46-116); ALT/SGPT 73 U/L (7.0-40); AST/SGOT 47 U/L (<34); BILIRUBIN,DIRECT 0.2 MG/DL (<0.4); BILIRUBIN,TOTAL 0.7 MG/DL (0.3-1.2); BLOOD UREA NITROGEN 14 MG/DL (9-23); CALCIUM LEVEL 9.1 MG/DL (8.5-10.1); CARBON DIOXIDE LEVEL 26 MMOL/L (20-31); CHLORIDE LEVEL 106 MMOL/L (98-107); CREATININE FOR GFR 0.71 MG/DL (0.70-1.30); GLOMERULAR FILTRATION RATE > 60.0 (>56); GLUCOSE, FASTING 89 MG/DL (60-100); POTASSIUM SERUM 4.3 MMOL/L (3.5-5.1); SODIUM LEVEL 141 MMOL/L (136-145); TOTAL PROTEIN 6.9 G/DL (5.7-8.2)
[2024-05-24] MEDS ORDERED: ISOVUE-370 76% 100ML VIAL As Ordered ONE (17:10)
[2024-05-24 18:32] VITALS: BP 157/85; TEMP 97.9; O2SAT 96
[2024-05-24] MEDS ORDERED: AMOX875T2 PO (19:14)
== END 2024-05-24 19:22 | disposition home or self-care (01) ==
LOC: M ED 12:04
DX: K57.32 Diverticulitis of large intestine without perforation or abscess without bleeding (principal); K21.9 Gastro-esophageal reflux disease without esophagitis; I10 Essential (primary) hypertension; F10.10 Alcohol abuse, uncomplicated; Z79.2 Long term (current) use of antibiotics; Z79.899 Other long term (current) drug therapy
CPT/HCPCS: 36415; 74177; 80048; 80076; 83690; 85025; 99284; Q9967

== ENCOUNTER → 2024-05-27 | Outpatient (CLI) | payer OTHER ==
[~2024-05-27] MED LIST changes: +AMOX875T2 PO; +DULO1CAP6; +GEMFPOW3; +HYDR-3490; +VITA200010
== END ==
LOC: M PAIN 10:15
PROVIDERS: ATTEND Nurse Practitioner Family
DX: M53.3 Sacrococcygeal disorders, not elsewhere classified (principal); M47.816 Spondylosis without myelopathy or radiculopathy, lumbar region; G89.29 Other chronic pain; I10 Essential (primary) hypertension; K21.9 Gastro-esophageal reflux disease without esophagitis; E78.5 Hyperlipidemia, unspecified; G47.30 Sleep apnea, unspecified; Z79.899 Other long term (current) drug therapy; Z87.891 Personal history of nicotine dependence

== ENCOUNTER → 2024-08-29 | Outpatient (CLI) | payer OTHER | LOC: M PAIN 09:00 | PROVIDERS: ATTEND Nurse Practitioner Family | DX: M53.3 Sacrococcygeal disorders, not elsewhere classified (principal); M47.816 Spondylosis without myelopathy or radiculopathy, lumbar region; G89.29 Other chronic pain; I10 Essential (primary) hypertension; K21.9 Gastro-esophageal reflux disease without esophagitis; E78.5 Hyperlipidemia, unspecified; G43.909 Migraine, unspecified, not intractable, without status migrainosus; Z87.891 Personal history of nicotine dependence; Z79.899 Other long term (current) drug therapy ==

== ENCOUNTER → 2024-11-29 | Outpatient (CLI) | payer OTHER | LOC: M PAIN 09:00 | PROVIDERS: ATTEND Nurse Practitioner Family | DX: M53.3 Sacrococcygeal disorders, not elsewhere classified (principal); M47.816 Spondylosis without myelopathy or radiculopathy, lumbar region; G89.29 Other chronic pain; M54.50 Low back pain, unspecified; M25.551 Pain in right hip; M25.552 Pain in left hip; I10 Essential (primary) hypertension; K21.9 Gastro-esophageal reflux disease without esophagitis; E78.5 Hyperlipidemia, unspecified; G43.909 Migraine, unspecified, not intractable, without status migrainosus; G47.30 Sleep apnea, unspecified; Z87.891 Personal history of nicotine dependence; Z79.899 Other long term (current) drug therapy ==

== ENCOUNTER → 2025-04-05 | Outpatient (CLI) | payer OTHER | LOC: M WUC 08:13 | DX: M25.561 Pain in right knee (principal) ==